=== PATIENT | female | born 1955 | race American Indian/Alaskan Native ===

== ENCOUNTER 2016-06-07 14:02 | Inpatient (IN) | payer MEDICARE ==
--- NOTE | 2016-06-07 16:30 | Emergency Department Report ---
ED General Adult HPI - General Chief complaint: Altered Mental Status Stated complaint: AMS Time Seen by Provider: 06/07/16 16:18 Source: patient, EMS, RN notes reviewed Mode of arrival: Stretcher Limitations: Altered Mental Status, Physical Limitation - History of Present Illness Initial comments: This is a 60-year-old female, whom I have evaluated in the past. Past medical history includes end-stage renal disease on dialysis, seizure disorder, polycystic kidney disease, anxiety, bipolar. Typically gets dialysis Tuesday, , Tuesday. She reports not having had dialysis since . She is brought to the hospital by EMS for generalized weakness. As per EMS documentation, patient answered the door half dressed, disoriented with labored breathing. Patient indicated that she had a syncopal episode. She cannot further elaborate on this. In the ER, patient complains of generalized weakness, and admits to syncope, but cannot further elaborate. Laboratory studies indicated hyperkalemia. Laboratory studies were not hemolyzed. Noncontrast CAT scan of the head was performed. Patient is alert to name, year, month, and has difficulty recalling specific events that led to her coming to the emergency room. She will be treated with a hyperkalemia cocktail, with the exception of Kayexalate as her mental status is somewhat tenuous. She is currently protecting her airway. She moves 4 extremities spontaneously and to command. Urinalysis, rectal temperature, straight catheterized urine sample are pending. Case is discussed with the Hospital physician, Dr. Vanessa, who accepted the patient to his service. Case was discussed with nephrology, Dr. Candelaria, who is going to arrange emergent dialysis. -: Gradual Severity scale (0 -10): 7 Consistency: constant Improves with: none Worsens with: none Associated Symptoms: confusion, syncope - Related Data Home Medications Medication Instructions Recorded Confirmed Last Taken FLUoxetine HCL [PROzac] 40 mg PO QDAY 03/19/16 03/31/16 Unknown Albuterol Sulfate [Ventolin HFA] 2 puff IH Q4H PRN 03/31/16 03/31/16 Unknown Esomeprazole Magnesium [NexIUM] 40 mg PO QDAY 03/31/16 03/31/16 Unknown Gabapentin [Neurontin] 100 mg PO BID 03/31/16 03/31/16 Unknown levETIRAcetam [Keppra TAB] 500 mg PO BID 03/31/16 03/31/16 Unknown Previous Rx's Medication Instructions Recorded Last Taken Type clonazePAM [Klonopin] 1 mg PO TID PRN #12 tablet 01/23/16 Unknown Rx oxyCODONE /ACETAMINOPHEN [Percocet 1 tab PO Q6HR PRN #24 tablet 03/24/16 Unknown Rx 5/325] Azithromycin [Zithromax Z-PARVIN] 0 mg PO DAILY #1 tab 04/05/16 Unknown Rx Allergies Allergy/AdvReac Type Severity Reaction Status Date / Time codeine Allergy Rash Verified 03/04/16 15:27 Sulfa (Sulfonamide Allergy Rash Verified 03/04/16 15:27 Antibiotics) ED Review of Systems ROS: Stated complaint: AMS Other details as noted in HPI Comment: Unobtainable due to pts medical conditions Constitutional: malaise, weakness Eyes: denies: vision change ENT: denies: epistaxis Respiratory: see HPI Cardiovascular: syncope Gastrointestinal: as per HPI Genitourinary: as per HPI Musculoskeletal: as per HPI Skin: as per HPI Neurological: weakness, confusion Psychiatric: denies: homicidal thoughts, suicidal thoughts ED Past Medical Hx - Past Medical History Hx Hypertension: Yes Hx Congestive Heart Failure: Yes Hx Diabetes: Yes Hx Deep Vein Thrombosis: Yes (Right calf) Hx GERD: Yes Hx Renal Disease: Yes (Renal Failure) Hx Arthritis: Yes Hx Seizures: Yes Hx Psychiatric Treatment: Yes (Anxiety, Bipolar) Hx Asthma: Yes Hx COPD: Yes Hx HIV: No Additional medical history: TIA - Surgical History Hx Cholecystectomy: Yes Additional Surgical History: Hysterectomy, Right shoulder x3, Bilateral ankle fx repair - Social History Smoking Status: Never Smoker Substance Use Type: None - Medications Home Medications: Home Medications Medication Instructions Recorded Confirmed Last Taken Type clonazePAM [Klonopin] 1 mg PO TID PRN #12 tablet 01/23/16 03/31/16 Unknown Rx FLUoxetine HCL [PROzac] 40 mg PO QDAY 03/19/16 03/31/16 Unknown History oxyCODONE /ACETAMINOPHEN [Percocet 1 tab PO Q6HR PRN #24 tablet 03/24/16 Unknown Rx 5/325] Albuterol Sulfate [Ventolin HFA] 2 puff IH Q4H PRN 03/31/16 03/31/16 Unknown History Esomeprazole Magnesium [NexIUM] 40 mg PO QDAY 03/31/16 03/31/16 Unknown History Gabapentin [Neurontin] 100 mg PO BID 03/31/16 03/31/16 Unknown History levETIRAcetam [Keppra TAB] 500 mg PO BID 03/31/16 03/31/16 Unknown History Azithromycin [Zithromax Z-PARVIN] 0 mg PO DAILY #1 tab 04/05/16 Unknown Rx ED Physical Exam - General Limitations: Altered Mental Status, Physical Limitation General appearance: in no apparent distress, lethargic - Head Head exam: Present: atraumatic, normocephalic - Eye Eye exam: Present: normal appearance, EOMI, other (left pupil surgically corrected, does not react to light. Right pupil does react to light.) - ENT ENT exam: Present: normal exam, normal orophraynx, mucous membranes moist, normal external ear exam - Neck Neck exam: Present: normal inspection, full ROM. Absent: tenderness, meningismus - Respiratory Respiratory exam: Absent: respiratory distress, wheezes, rales, rhonchi, stridor - Cardiovascular Cardiovascular Exam: Present: regular rate, normal rhythm, normal heart sounds. Absent: bradycardia, tachycardia, irregular rhythm, systolic murmur, diastolic murmur, rubs, gallop - GI/Abdominal GI/Abdominal exam: Present: soft, normal bowel sounds. Absent: distended, tenderness, guarding, rebound, rigid, pulsatile mass - Extremities Exam Extremities exam: Present: normal inspection, full ROM, pedal edema, other ( left upper extremity AV fistula with appropriate throat. Pelvis is stable. no long bony tenderness.). Absent: calf tenderness - Back Exam Back exam: Present: normal inspection, full ROM. Absent: tenderness, CVA tenderness (R), CVA tenderness (L), muscle spasm, paraspinal tenderness, vertebral tenderness - Neurological Exam Neurological exam: Present: alert, other (Extraocular movements intact. Tongue midline. No facial droop. Facial sensation intact to light touch in the V1, V2 , V3 distribution bilaterally. 5 and 5 strength in 4 extremities.. Sensation is intact to light touch in 4 extremities.). Absent: motor sensory deficit - Psychiatric Psychiatric exam: Present: normal affect, normal mood - Skin Skin exam: Present: warm, dry, intact, normal color. Absent: rash ED Course Vital Signs 06/07/16 06/07/16 06/07/16 14:39 14:45 14:47 Temperature 98.3 F Pulse Rate 85 85 Respiratory 18 15 Rate Blood Pressure 125/68 Blood Pressure 143/74 [Right] O2 Sat by Pulse 22 L 96 97 Oximetry 06/07/16 06/07/16 06/07/16 16:45 18:10 18:15 Temperature 98.0 F Pulse Rate 87 82 79 Respiratory 17 20 Rate Blood Pressure 150/82 182/80 Blood Pressure 148/73 [Right] O2 Sat by Pulse 96 Oximetry 06/07/16 06/07/16 06/07/16 18:30 18:45 19:00 Temperature Pulse Rate 92 H 92 H 92 H Respiratory Rate Blood Pressure 145/91 142/92 147/85 Blood Pressure [Right] O2 Sat by Pulse Oximetry 06/07/16 06/07/16 06/07/16 19:15 19:30 19:40 Temperature Pulse Rate 91 H 92 H 67 Respiratory Rate Blood Pressure 136/78 134/83 149/103 Blood Pressure [Right] O2 Sat by Pulse Oximetry 06/07/16 06/07/16 06/07/16 20:00 20:15 21:30 Temperature Pulse Rate 86 85 81 Respiratory Rate Blood Pressure 139/73 120/76 110/63 Blood Pressure [Right] O2 Sat by Pulse Oximetry - Reevaluation(s) Reevaluation #1: 06/07/16 17:31 Differential diagnosis: Hyperkalemia, pneumonia, urinary tract infection, toxic encephalopathy, metabolic encephalopathy Assessment and plan: 60-year-old female with generalized weakness, reported syncopal event, hyperkalemia. She will be given the hyperkalemia cocktail. She is going to be admitted for further management. X-ray unremarkable. Currently awaiting interpretation CAT scan of the head. Reevaluation #2: 06/07/16 17:36 Reevaluation #3: 06/07/16 17:38 Elevated aspirin level is appreciated. Case is discussed with the [place] [facility]. They typically do not recommend emergent dialysis for levels less than 90. They typically do not recommend bicarbonate/ alkalinization therapy for levels less than 30. In any event, the patient has really been treated with sodium bicarbonate, and is going to get urgent dialysis today for her hyperkalemia. The patient indicates that she does not take lithium. She was taking aspirin for pain. She is not homicidal. She is not suicidal. This was discussed with Alycia at the [place] [facility], in conjunction with the medical special loan officer, Dr. Nevarez 06/07/16 17:42 ED Medical Decision Making - Lab Data Result diagrams: 06/07/16 15:51 06/07/16 15:51 Vital Signs 06/07/16 14:39 Temperature 98.3 F Pulse Rate 85 Blood Pressure 125/68 O2 Sat by Pulse 22 L Oximetry - EKG Data 06/07/16 17:33 normal sinus, borderline rightward axis, low voltage, incomplete right bundle branch block, not consistent with STEMI, nonspecific changes when compared to prior EKG from March 2016. - Radiology Data Radiology results: image reviewed interpreted by me: X-ray chest with mild pulmonary vascular congestion, DJD, no acute disease. Critical Care Time: Yes Critical care time in (mins) excluding proc time.: 45 Critical care attestation.: If time is entered above; I have spent that time in minutes in the direct care of this critically ill patient, excluding procedure time. Critical Care Time: Critical care time includes multiple bedside reevaluation, interpretation of laboratory studies, radiology studies, and discussion with multiple consulting services, including [place] [facility], hospital medicine, nephrology. This excludes procedure time. ED Disposition Clinical Impression: Acute metabolic encephalopathy, Hyperkalemia, ESRD (end stage renal disease) Disposition: OP ADMITTED IP TO THIS HOSP Is pt being admited?: Yes Condition: Good
[2016-06-07 16:40] LABS: Albumin 3.7 g/dL (3.9-5); Albumin/Globulin Ratio 1.2 %; BUN/Creatinine Ratio 9.75; Bilirubin,Total 0.2 mg/dL (0.1-1.2); Calcium 8.1 mg/dL (8.4-10.2); Chloride 104.6 mmol/L (98-107); Magnesium 2.3 mg/dL (1.7-2.3); Total Protein 6.9 g/dL (6.3-8.2)
[2016-06-07 16:46] LABS: Basophils % (Auto) 1.5 % (0.0-1.8); Eosinophils % (Auto) 6.6 % (0.0-4.3); Hematocrit 29.4 % (30.3-42.9); Hemoglobin 9.1 gm/dl (10.1-14.3); Mean Corpuscular HGB Conc 31 % (30-34); Mean Corpuscular Hemoglobin 29 pg (28-32); Mean Corpuscular Volume 92 fl (79-97); Platelet Count 204 K/mm3 (140-440); Red Cell Distribution Width 19.2 % (13.2-15.2); White Blood Count 7.6 K/mm3 (4.5-11.0)
--- NOTE | 2016-06-07 17:09 | Admit Criteria Form ---
Admission Criteria Documentation: HYPONATREMIA; HYPERNATREMIA; HYPOKALEMIA; HYPERKALEMIA; HYPOCALCEMIA; HYPERCALCEMIA Clinical Indications for Inpatient Care (Place 'X' for any and all applicable criteria): Ongoing inpatient care may be indicated for ANY ONE of the following [G](1)(2)(3 )(5): [ ]I. Hyponatremia with ANY ONE of the following: [ ]a) Sodium less than 130 mEq/L (mmol/L) (new) (6)(22) [ ]b) Sodium less than 135 mEq/L (mmol/L) with ANY ONE of the following: [ ]i) Severe medical etiology requiring inpatient management (eg, heart failure, hypovolemia) [ ]ii) Altered mental status [ ]iii) Seizures [ ]II. Hypernatremia with ANY ONE of the following: [ ]a) Sodium greater than 155 mEq/L (mmol/L) [ ]b) Sodium greater than 150 mEq/L (mmol/L) with ANY ONE of the following: [ ] i) Altered mental status [ ]ii) Seizures [ ]iii) Severe medical etiology (eg, hypovolemia, diabetes insipidus) [ ]iv) Severe weakness [ ]v) Severe medical etiology (eg, hemolysis, infection, drug overdose) [ ]III. Hypokalemia with ANY ONE of the following: [ ]a) Potassium less than 2.5 mEq/L (mmol/L) despite outpatient and emergency treatment [ ]b) Potassium less than 3.0 mEq/L (mmol/L) with ANY ONE of the following: [ ]i) Weakness [ ]ii) Cardiac abnormality (eg, arrhythmia, conduction disturbance) [ ]iii) Cardiac ischemia [ ]iv) Ileus [ ]v) Ongoing medical cause requiring inpatient management. ( e.g., acute renal wasting, SIADH) [ ]vi) Other severe symptoms [ X] IV. Hyperkalemia with ANY ONE of the following: [X ]a) Potassium greater than 6.5 mEq/L (mmol/L) [ ]b) Potassium greater than 5 mEq/L (mmol/L) with ANY ONE of the following: [ ]i) Severe ECG findings [H] [ ]ii) Acute worsening of renal failure (creatinine greater than 2.5 mg/dL (221 micromoles/L) or significant elevation for age and size) [ ] V. Hypocalcemia with ANY ONE of the following: [ ]a) Calcium less than 7 mg/dL (1.75 mmol/L) despite outpatient and emergency treatment(19) [ ]b) Calcium less than 8 mg/dL (2 mmol/L) with significant symptoms or findings; examples include: [ ]i) Cardiac abnormality (eg, arrhythmia or conduction disturbance) [ ]ii) Altered mental status [ ]iii) Seizures [ ]iv) Breathing difficulty [ ]v) Muscle spasms [ ]. Hypercalcemia with ANY ONE of the following: [ ]a) Calcium greater than 14 mg/dL (3.5 mmol/L) [ ]b) Calcium greater than 12 mg/dL (3 mmol/L) with ANY ONE of the following: [ ]i) Significant dehydration or hypovolemia as indicated by ANY ONE of the following(2): [ ]1. Clinically significant dehydration as indicated by ANY ONE of the following: [ ]A. Acute loss of weight from baseline (5% of body weight in adults, 9% in pediatric patients) [ ]B. Hemodynamic instability [ ]C. Acute renal failure [ ]D. Serum sodium greater than 150 mEq/L (mmol/L) [ ]2) Dehydration that is persistent indicated by ALL of the following: [ ]A. Oral rehydration therapy not tolerated or insufficient to adequately correct dehydration [ ]B. Appropriate intravenous treatment (eg, fluids ) does not readily correct dehydration ie, after 12 to 24 hours of treatment) [ ]ii) Significant symptoms or findings; examples include: [ ]1) Altered mental status [ ]2) Cardiac abnormality (eg, arrhythmia, conduction disturbance) [ ]3) Cardiac abnormality (eg, arrhythmia, conduction disturbance) The original [employer] content created by [employer] has been revised. The portions of the content which have been revised are identified through the use of italic text or in bold, and [facility] has neither reviewed nor approved the modified material. All other unmodified content is copyright [facility] [employer] Please see references footnoted in the original [facility] [employer] edition 2016 Admission Criteria Met: Yes
[2016-06-07] MEDS ORDERED: PROVENTIL IH ONE (17:10)
[2016-06-07] MEDS ORDERED: D50W (25GM) IV ONE (17:10)
[2016-06-07] MEDS ORDERED: SODIUM BICARBONATE IV ONE (17:10)
[2016-06-07] MEDS ORDERED: PROAIR IH PRN (17:32)
[2016-06-07] MEDS ORDERED: PERCOCET 5/325 PO PRN (17:32)
[2016-06-07] MEDS ORDERED: PROVENTIL IH PRN ×2 (17:36→17:40)
[2016-06-07] MEDS ORDERED: ZOFRAN IV PRN (17:36)
[2016-06-07] MEDS ORDERED: MILK OF MAGNESIA PO PRN (17:36)
--- NOTE | 2016-06-07 17:40 | History and Physical Report ---
History of Present Illness Date of examination: 06/07/16 Date of admission: 06/27/16 Chief complaint: shortness of breath, AMS History of present illness: Patient is a 60-year-old woman history of end-stage renal disease on dialysis Tuesdays, , Saturdays, bipolar, hypertension, anxiety disorder, polycystic kidney disease, seizure disorder, was brought to the emergency room for altered mental status and shortness of breath via EMS. The patient will go still confused in the ER was unable to tell me that she had missed all 1 dialysis day and I wasn't Tuesday although she feels today Tuesday. No family members present at bedside. Per EMS documentation patient answered the door half dressed, disoriented with labored breathing. She reported that she may have passed out but did not give any further information. In the ER she was noted to have mild shortness of breath although able to vocalize all her sentences completely. No fever was noted. She has had multiple admissions in the past for missed dialysis. She has a known history of abdominal hematoma status post evacuation of hematoma. She appears visibly weak. Nevertheless she is awake alert oriented to person and place but not to time. ROS Constitutional: Reports fatigue, denies fever, or weight loss. Skin: No rash. Eyes: No recent vision problems or eye pain. ENT: No congestion, ear pain, or sore throat. Endocrine: No thyroid problems. Cardiovascular: No chest pain. Respiratory: Cough with shortness of breath but no, congestion, or wheezing. Gastrointestinal: No abdominal pain, nausea, vomiting, or diarrhea. Genitourinary: No dysuria. Musculoskeletal: No joint swelling. Neurologic: Reports syncopal episode. But no seizures. Hematologic: No unusual bruising or bleeding. Psychiatric: History of anxiety, bipolar All other systems reviewed and otherwise negative. Past History Past Medical History: ESRD, hypertension, seizures, other (anxiety, bipolar,, polycystic kidney disease) Past Surgical History: hysterectomy, Other (ankle surgery, abdominal hematoma evacuation, shoulder surgery, AV fistula) Social history: , lives with family, full code. denies: smoking, alcohol abuse, prescription drug abuse, IV drug use Family history: no significant family history Medications and Allergies Allergies Allergy/AdvReac Type Severity Reaction Status Date / Time codeine Allergy Rash Verified 03/04/16 15:27 Sulfa (Sulfonamide Allergy Rash Verified 03/04/16 15:27 Antibiotics) Home Medications Medication Instructions Recorded Confirmed Last Taken Type clonazePAM [Klonopin] 1 mg PO TID PRN #12 tablet 01/23/16 03/31/16 Unknown Rx FLUoxetine HCL [PROzac] 40 mg PO QDAY 03/19/16 03/31/16 Unknown History oxyCODONE /ACETAMINOPHEN [Percocet 1 tab PO Q6HR PRN #24 tablet 03/24/16 Unknown Rx 5/325] Albuterol Sulfate [Ventolin HFA] 2 puff IH Q4H PRN 03/31/16 03/31/16 Unknown History Esomeprazole Magnesium [NexIUM] 40 mg PO QDAY 03/31/16 03/31/16 Unknown History Gabapentin [Neurontin] 100 mg PO BID 03/31/16 03/31/16 Unknown History levETIRAcetam [Keppra TAB] 500 mg PO BID 03/31/16 03/31/16 Unknown History Azithromycin [Zithromax Z-PARVIN] 0 mg PO DAILY #1 tab 04/05/16 Unknown Rx Active Meds: Active Medications Acetaminophen (Tylenol) 650 mg PO Q4H PRN PRN Reason: Pain MILD(1-3)/Fever >100.5/ROCHE Albuterol (Proair) 2 puff IH Q4H PRN PRN Reason: Shortness Of Breath Albuterol (Proventil) 2.5 mg IH Q3HRT PRN PRN Reason: Shortness Of Breath Albuterol/Ipratropium (Duoneb 0.5 Mg-3 Mg/3 Ml Soln) 1 ampul IH Q6HRT DAVIN Bisacodyl (Dulcolax) 10 mg KS QDAY PRN PRN Reason: Constipation unrelieved by MOM Budesonide (Pulmicort) 0.5 mg IH Q12HRT DAVIN Clonazepam (Klonopin) 1 mg PO TID PRN PRN Reason: Anxiety Fluoxetine HCl (Prozac) 40 mg PO DAILY DAVIN Gabapentin (Neurontin) 100 mg PO BID DAVIN Heparin Sodium (Porcine) (Heparin) 5,000 unit SUB-Q Q8HR DAVIN Levetiracetam (Keppra) 500 mg PO BID DAVIN Magnesium Hydroxide (Milk Of Magnesia) 30 ml PO Q4H PRN PRN Reason: Constipation Ondansetron HCl (Zofran) 4 mg IV Q8H PRN PRN Reason: N/V unrelieved by Reglan Oxycodone/Acetaminophen (Percocet 5/325) 1 tab PO Q6HR PRN PRN Reason: Pain Exam - Physical Exam Narrative exam: VITAL SIGNS: Reviewed. GENERAL: The patient appeared well nourished and normally developed. Vital signs as documented. HEAD: No signs of head trauma. EYES: Pupils are equal. Extraocular motions intact. EARS: Hearing grossly intact. MOUTH: Oropharynx is normal. NECK: No adenopathy, no JVD. CHEST: Chest with diminished breath sounds bilaterally. No wheezes, rales, or rhonchi. CARDIAC: Regular rate and rhythm. S1 and S2, without murmurs, gallops, or rubs. VASCULAR: Nonpitting bilateral edema left greater than right. Peripheral pulses normal and equal in all extremities. ABDOMEN: Truncal obesity, Soft, without detectable tenderness. No sign of distention. No rebound or guarding, and no masses palpated. Bowel Sounds normal. MUSCULOSKELETAL: Left upper extremity fistula left ankle appears deformed. Extremities without clubbing, cyanosis NEUROLOGIC EXAM: Awake but lethargic oriented to person and place . No focal sensory or strength deficits. Speech normal. Follows commands. PSYCHIATRIC: Mood normal. SKIN: There is a fistula left upper extremity. - Constitutional Vitals: Temp Pulse Resp BP Pulse Ox 98.3 F 85 125/68 22 L 06/07/16 14:39 06/07/16 14:39 06/07/16 14:39 06/07/16 14:39 Results - Labs CBC & Chem 7: 06/07/16 15:51 06/07/16 15:51 Labs: Laboratory Last Values WBC 7.6 K/mm3 (4.5-11.0) 06/07/16 15:51 RBC 3.20 M/mm3 (3.65-5.03) L 06/07/16 15:51 Hgb 9.1 gm/dl (10.1-14.3) L 06/07/16 15:51 Hct 29.4 % (30.3-42.9) L 06/07/16 15:51 MCV 92 fl (79-97) 06/07/16 15:51 MCH 29 pg (28-32) 06/07/16 15:51 MCHC 31 % (30-34) 06/07/16 15:51 RDW 19.2 % (13.2-15.2) H 06/07/16 15:51 Plt Count 204 K/mm3 (140-440) 06/07/16 15:51 Lymph % (Auto) 18.4 % (13.4-35.0) 06/07/16 15:51 [place] % (Auto) 6.2 % (0.0-7.3) 06/07/16 15:51 Eos % (Auto) 6.6 % (0.0-4.3) H 06/07/16 15:51 Baso % (Auto) 1.5 % (0.0-1.8) 06/07/16 15:51 Lymph # 1.4 K/mm3 (1.2-5.4) 06/07/16 15:51 [place] # 0.5 K/mm3 (0.0-0.8) 06/07/16 15:51 Eos # 0.5 K/mm3 (0.0-0.4) H 06/07/16 15:51 Baso # 0.1 K/mm3 (0.0-0.1) 06/07/16 15:51 Seg Neutrophils % 67.3 % (40.0-70.0) 06/07/16 15:51 Seg Neutrophils # 5.1 K/mm3 (1.8-7.7) 06/07/16 15:51 Sodium 147 mmol/L (137-145) H 06/07/16 15:51 Potassium 7.0 mmol/L (3.6-5.0) H* 06/07/16 15:51 Chloride 104.6 mmol/L (98-107) 06/07/16 15:51 Carbon Dioxide 12 mmol/L (22-30) L 06/07/16 15:51 Anion Gap 37 mmol/L 06/07/16 15:51 BUN 80 mg/dL (7-17) H 06/07/16 15:51 Creatinine 8.2 mg/dL (0.7-1.2) H 06/07/16 15:51 Estimated GFR 6 ml/min 06/07/16 15:51 BUN/Creatinine Ratio 9.75 % 06/07/16 15:51 Glucose 73 mg/dL (65-100) 06/07/16 15:51 Lactic Acid 0.4 mmol/L (0.7-2.0) L 06/07/16 15:51 Calcium 8.1 mg/dL (8.4-10.2) L 06/07/16 15:51 Magnesium 2.3 mg/dL (1.7-2.3) 06/07/16 15:51 Total Bilirubin 0.2 mg/dL (0.1-1.2) 06/07/16 15:51 AST 28 units/L (5-40) 06/07/16 15:51 ALT 18 units/L (7-56) 06/07/16 15:51 Alkaline Phosphatase 76 units/L (35-129) 06/07/16 15:51 Total Protein 6.9 g/dL (6.3-8.2) 06/07/16 15:51 Albumin 3.7 g/dL (3.9-5) L 06/07/16 15:51 Albumin/Globulin Ratio 1.2 % 06/07/16 15:51 TSH 1.930 mlU/mL (0.270-4.200) 06/07/16 16:02 Salicylates 22.0 mg/dL (2.8-20.0) H 06/07/16 16:03 Acetaminophen < 15.0 ug/mL (10.0-30.0) 06/07/16 16:03 Plasma/Serum Alcohol < 0.01 gm% (0-0.07) 06/07/16 16:05 - Imaging and Cardiology EKG: image reviewed (peaked T waves) Chest x-ray: image reviewed CT Scan - head: image reviewed Assessment and Plan Assessment and plan: Patient is a 60-year-old woman history of end-stage renal disease on dialysis Tuesdays, , Saturdays, bipolar, hypertension, anxiety disorder, polycystic kidney disease, seizure disorder, was brought to the emergency room for altered mental status and shortness of breath via EMS. The patient will go still confused in the ER was unable to tell me that she had missed all 1 dialysis day and I wasn't Tuesday although she feels today Tuesday. No family members present at bedside. Per EMS documentation patient answered the door half dressed, disoriented with labored breathing. She reported that she may have passed out but did not give any further information. In the ER she was noted to have mild shortness of breath although able to vocalize all her sentences completely. No fever was noted. She has had multiple admissions in the past for missed dialysis. She has a known history of abdominal hematoma status post evacuation of hematoma. She appears visibly weak. Nevertheless she is awake alert oriented to person and place but not to time. * Metabolic encephalopathy secondary to missed dialysis * Severe Hyperkalemia * syncope * End-stage renal disease on dialysis * Seizure * Hypertension * Bipolar * Anemia of chronic disease * Anxiety disorder * Generalized weakness * Metabolic acidosis secondary to end-stage renal disease Plan * Patient has received in the ER hyperkalemia cocktail including Kayexalate, bicarbonate, insulin, D10, we'll repeat potassium * Nephrology has been consulted already. * We'll resume patient's entire anxiolytics * Urinalysis pending * Resume blood pressure medications. * No EVIDENCE of infection at this point. I believe her syncopal episode is likely secondary to missed dialysis. We'll monitor closely will hold off on any antibiotics at this point. * DVT and GI prophylaxis The high probability of a clinically significant, sudden or life threatening deterioration of the [renal] system(s) required my full and direct attention, intervention and personal management. The aggregate critical care time was [35] minutes. This time is in addition to time spent performing reported procedures but includes the following: [x] Data Review and interpretation [x] Patient assessment and monitoring of vital signs [x] Documentation [x] Medication orders and management Advance Directives: Yes Plan of care discussed with patient/family: Yes
--- NOTE | 2016-06-07 17:48 | Cat Scan Report ---
FINAL REPORT EXAM: CT HEAD/BRAIN WO CON HISTORY: ams ? pna TECHNIQUE: CT head without contrast PRIORS: None. FINDINGS: No acute intra-axial or extra-axial hemorrhage is identified. There is no evidence of midline shift or mass effect. The ventricles and sulci are within normal limits. Can-white matter differentiation is intact. No acute parenchymal abnormalities seen. Bony calvarium is grossly intact. Visualized portions of the mastoids and paranasal sinuses are unremarkable. Left orbital scleral band noted. IMPRESSION: Negative CT head
[2016-06-07] MEDS ORDERED: NACL 0.9% 1000 ML 100 ML IV PRN (18:15)
[2016-06-07] MEDS ORDERED: DULCOLAX PR PRN (18:21)
[2016-06-07] MEDS ORDERED: HEPARIN 10,000 UNITS/10 ML IV ONE (19:00)
--- NOTE | 2016-06-07 19:07 | Consultation ---
History of Present Illness - Reason for Consult Consult date: 06/07/16 - History of Present Illness pt with ESRD,HTN,Bipolar disorder presents with AMS, Hyperkalemia, Uremia, Metabolic acidosis. Missed 2 HD sessions. Pt was seen and examined on HD around 6.30 PM . Currently on HD - sleepy, but arousable, pt says that she is confused and didn't go for dialysis, I had fight with my . BP-182/80,P-79, afebrile on HD. Monitor K. Renal diet as ordered. Tolerating UF. Ext -1+ edema, more prominent in LLE Past History Past Medical History: ESRD, hypertension, seizures, other (anxiety, bipolar,, polycystic kidney disease) Past Surgical History: hysterectomy, Other (ankle surgery, abdominal hematoma evacuation, shoulder surgery, AV fistula) Social history: , lives with family, full code. denies: smoking, alcohol abuse, prescription drug abuse, IV drug use Family history: no significant family history Medications and Allergies Allergies Allergy/AdvReac Type Severity Reaction Status Date / Time codeine Allergy Rash Verified 03/04/16 15:27 Sulfa (Sulfonamide Allergy Rash Verified 03/04/16 15:27 Antibiotics) Home Medications Medication Instructions Recorded Confirmed Last Taken Type clonazePAM [Klonopin] 1 mg PO TID PRN #12 tablet 01/23/16 03/31/16 Unknown Rx FLUoxetine HCL [PROzac] 40 mg PO QDAY 03/19/16 03/31/16 Unknown History oxyCODONE /ACETAMINOPHEN [Percocet 1 tab PO Q6HR PRN #24 tablet 03/24/16 Unknown Rx 5/325] Albuterol Sulfate [Ventolin HFA] 2 puff IH Q4H PRN 03/31/16 03/31/16 Unknown History Esomeprazole Magnesium [NexIUM] 40 mg PO QDAY 03/31/16 03/31/16 Unknown History Gabapentin [Neurontin] 100 mg PO BID 03/31/16 03/31/16 Unknown History levETIRAcetam [Keppra TAB] 500 mg PO BID 03/31/16 03/31/16 Unknown History Azithromycin [Zithromax Z-PARVIN] 0 mg PO DAILY #1 tab 04/05/16 Unknown Rx Active Meds: Active Medications Acetaminophen (Tylenol) 650 mg PO Q4H PRN PRN Reason: Pain MILD(1-3)/Fever >100.5/ROCHE Albuterol (Proventil) 2.5 mg IH Q4HRT PRN PRN Reason: Shortness Of Breath Albuterol/Ipratropium (Duoneb 0.5 Mg-3 Mg/3 Ml Soln) 1 ampul IH Q6HRT DAVIN Bisacodyl (Dulcolax) 10 mg DE QDAY PRN PRN Reason: Constipation unrelieved by MOM Budesonide (Pulmicort) 0.5 mg IH Q12HRT DAVIN Clonazepam (Klonopin) 1 mg PO TID PRN PRN Reason: Anxiety Fluoxetine HCl (Prozac) 40 mg PO DAILY DAVIN Gabapentin (Neurontin) 100 mg PO BID DAVIN Heparin Sodium (Porcine) (Heparin) 5,000 unit SUB-Q Q8HR DAVIN Sodium Chloride (Nacl 0.9% 1000 Ml) 100 mls @ 999 mls/hr IV MYAH PRN PRN Reason: Hypotension Levetiracetam (Keppra) 500 mg PO BID DAVIN Magnesium Hydroxide (Milk Of Magnesia) 30 ml PO Q4H PRN PRN Reason: Constipation Ondansetron HCl (Zofran) 4 mg IV Q8H PRN PRN Reason: N/V unrelieved by Reglan Oxycodone/Acetaminophen (Percocet 5/325) 1 tab PO Q6HR PRN PRN Reason: Pain Exam - Constitutional Vitals: Temp Pulse Resp BP Pulse Ox 98.3 F 87 17 148/73 96 06/07/16 14:39 06/07/16 16:45 06/07/16 16:45 06/07/16 16:45 06/07/16 16:45 Results - Labs CBC & Chem 7: 06/07/16 15:51 06/07/16 15:51
[2016-06-07] MEDS ORDERED: DUONEB 0.5 MG-3 MG/3 ML SOLN IH SCH (20:00)
[2016-06-07] MEDS ORDERED: PULMICORT IH SCH (20:00)
[2016-06-07] MEDS ORDERED: D50W (25GM) IV STA (21:27)
[2016-06-08 00:44] LABS: INR 1.08 (0.87-1.13)
--- NOTE | 2016-06-08 01:48 | Consultation ---
REASON FOR CONSULTATION: Renal failure, hyperkalemia, metabolic acidosis. HISTORY OF PRESENT ILLNESS: This 60-year-old -Domin[place] female with history of end-stage renal disease, polycystic kidney disease, bipolar disorder, hypertension, was brought to the Emergency Room with altered mental status and shortness of breath. The patient was reported to have missed dialysis treatment on and Tuesday. The patient is very sleepy and poor historian. On questioning, the patient states that she was confused and did not go to the dialysis and had fight with her . The patient goes to [facility] on Tuesday, , Tuesday. In the Emergency Room, the patient was reported to have potassium level of 7.0, CO2 of 12, BUN 80, creatinine 8.2. Toxicology screening was positive for salicylates level 22.0. PAST MEDICAL HISTORY: The patient had previous admissions with hyperkalemia and hypoglycemia with altered mental status. Recently, she had a fall and had abdominal hematoma, underwent evacuation of the hematoma, history of bipolar disorder, anxiety/depression, ESRD, history of seizure disorder. PERSONAL HISTORY: No history of smoking, alcohol, or drug abuse. FAMILY HISTORY: No family history of kidney failure. ALLERGIES: Codeine and sulfa. HOME MEDICATIONS: Klonopin 1 mg 3 times a day as needed, Prozac 40 mg a day, Percocet 5/325 p.r.n., gabapentin 100 mg b.i.d., Keppra 500 mg twice a day. REVIEW OF SYSTEMS: Poor historian. The patient is sleepy and confused, but arousable and able to talk slowly. No reports of fever or chills. Denies nausea, vomiting, or abdomen pain. Other review of systems reviewed and negative. PHYSICAL EXAMINATION: GENERAL: The patient is lethargic, but arousable, oriented to person and place. VITAL SIGNS: Blood pressure 182/80, pulse 79, afebrile. EYES: Pupils reactive. Conjunctivae pale. Oral mucosa and tongue are dry. Lips noncyanotic. NECK: Supple, no JVD, no thyroid enlargement. LUNGS: Diminished breath sounds in bases. HEART: S1, S2 regular. A 2/6 systolic murmur along the left sternal border. No pericardial rub. ABDOMEN: Soft, bowel sounds present, nontender. No masses palpable. EXTREMITIES: 1+ edema, more prominent in the left lower extremity. Upper arm AV access is functioning. LABORATORY DATA: Sodium 147, potassium 7.0, chloride 104, CO2 12, BUN 80, creatinine 8.2, glucose 73, calcium 8.1. Lactic acid 0.4. Albumin 3.7. WBC 7.6, hemoglobin 9.1, hematocrit 29.4, platelets 204,000. ASSESSMENT AND PLAN: 1. Altered mental status/metabolic encephalopathy. 2. Hyperkalemia. 3. Uremia. 4. Metabolic acidosis. 5. End-stage renal disease. 6. History of seizure disorder. 7. Hypertension. 8. History of bipolar disorder. 9. Anemia and chronic kidney disease. 10. Chronic deconditioning with weakness in the lower extremities with unsteady gait. Stat hemodialysis as ordered. Monitor potassium levels closely. Renal diet with potassium restriction is ordered. Adjust medications per renal function. Thank you for the consultation. JOB# [id number] Britney/DENNISE
[2016-06-08] MEDS: KEPPRA PO SCH ×2 (03:07→09:28)
[2016-06-08] MEDS: NEURONTIN PO SCH ×2 (03:07→09:28)
[2016-06-08] MEDS: HEPARIN SUB-Q SCH ×3 (03:08→14:50)
[2016-06-08 08:32] LABS: Basophils % (Auto) 0.7 % (0.0-1.8); Eosinophils % (Auto) 6.9 % (0.0-4.3); Hematocrit 27.3 % (30.3-42.9); Hemoglobin 8.7 gm/dl (10.1-14.3); Mean Corpuscular HGB Conc 32 % (30-34); Mean Corpuscular Hemoglobin 28 pg (28-32); Mean Corpuscular Volume 87 fl (79-97); Platelet Count 186 K/mm3 (140-440); Red Blood Count 3.13 M/mm3 (3.65-5.03); Red Cell Distribution Width 18.6 % (13.2-15.2)
[2016-06-08] MEDS: TYLENOL PO PRN ×2 (08:42→18:15)
--- NOTE | 2016-06-08 09:04 | XRay Report ---
AP CHEST: HISTORY: Altered mental status, pneumonia. FINDINGS: Compared to 04/06/16. Mild cardiomegaly and central pulmonary venous congestion appear stable. The lungs are clear. Atelectatic changes at the lung bases have resolved since the previous exam. No evidence for pneumonia, CHF or pneumothorax. IMPRESSION: Mild cardiomegaly and central pulmonary venous congestion.
[2016-06-08 09:09] LABS: BUN/Creatinine Ratio 6.92; Calcium 8.4 mg/dL (8.4-10.2); Chloride 95.6 mmol/L (98-107); Potassium 4.7 mmol/L (3.6-5.0)
--- NOTE | 2016-06-08 09:21 | Progress Note ---
Assessment and Plan - Patient Problems (1) ESRD (end stage renal disease) Current Visit: Yes Status: Chronic Plan to address problem: S/P HD yesterday for hyperkalemia, Metabolic acidosis,uremia. Regular dialysis schedule-T/T/S-HD today. Clinically improving (2) Hypoglycemia Current Visit: Yes Status: Acute Plan to address problem: not on oral hypoglycemic agents or Insulin. Had work up for adrenal insufficiency in the past, advised pt to eat small frequent meals. May consider small dose of steroids or Florinef (3) Metabolic acidosis Current Visit: Yes Status: Resolved (4) Acute metabolic encephalopathy Current Visit: Yes Status: Resolved (5) Hyperkalemia Current Visit: Yes Status: Resolved (6) Bipolar disorder Current Visit: No Status: Acute Qualifiers: Active/Remission status: A Current bipolar episode type: C Current episode severity: C Psychotic features: P Most recent bipolar episode type: M (7) HTN (hypertension) Current Visit: No Status: Chronic Qualifiers: Hypertension type: H (8) Weakness generalized Current Visit: No Status: Chronic (9) Anemia in ESRD (end-stage renal disease) Current Visit: Yes Status: Chronic Subjective Date of service: 06/08/16 Interval history: pt is more alert, oriented, back to baseline mental status. Denies CP or SOB Objective - Vital Signs Vital signs: Vital Signs - 12hr 06/07/16 06/07/16 06/07/16 21:30 21:40 22:00 Temperature 98.4 F Pulse Rate 81 80 75 Pulse Rate [ Radial] Pulse Rate [ Right] Respiratory 20 Rate Blood Pressure 110/63 120/64 123/63 Blood Pressure [Right Arm] O2 Sat by Pulse Oximetry 06/08/16 06/08/16 01:43 02:04 Temperature 98.1 F Pulse Rate Pulse Rate [ 78 Radial] Pulse Rate [ 75 Right] Respiratory 22 18 Rate Blood Pressure Blood Pressure 130/63 [Right Arm] O2 Sat by Pulse 99 96 Oximetry - General Appearance General appearance: well-developed EENT: mucous membranes moist Neck: no JVD Respiratory: Present: Clear to Ascultation Cardiology: regular Gastrointestinal: normoactive bowel sounds Psychiatric: cooperative - Lab 06/08/16 08:06 06/08/16 08:06 Most recent lab results Calcium 8.4 mg/dL (8.4-10.2) 06/08/16 08:06 Magnesium 2.3 mg/dL (1.7-2.3) 06/07/16 15:51
[2016-06-08] MEDS ORDERED: PROzac PO SCH (10:00)
--- NOTE | 2016-06-08 11:26 | Discharge Summary ---
Providers - Providers Date of Admission: 06/07/16 17:36 Date of discharge: 06/08/16 Attending physician: HALEY ANDERSON MD Primary care physician: CERTIFIED NURSING ATTENDANT Hospitalization Reason for admission: AMS Condition: Stable Hospital course: Patient is a 60-year-old woman history of end-stage renal disease on dialysis Tuesdays, , Saturdays, bipolar, hypertension, anxiety disorder, polycystic kidney disease, seizure disorder, was brought to the emergency room for altered mental status and shortness of breath via EMS. The patient will go still confused in the ER was unable to tell me that she had missed all 1 dialysis day and I wasn't Tuesday although she feels today Tuesday. No family members present at bedside. Per EMS documentation patient answered the door half dressed, disoriented with labored breathing. She reported that she may have passed out but did not give any further information. In the ER she was noted to have mild shortness of breath although able to vocalize all her sentences completely. No fever was noted. She has had multiple admissions in the past for missed dialysis. She has a known history of abdominal hematoma status post evacuation of hematoma. She appears visibly weak. Nevertheless she is awake alert oriented to person and place but not to time. On admission the patient had emergent dialysis with complete resolution of metabolic encephalopathy and also resolution of hyperkalemia. This was rather quicker resolution than anticipated. I did discuss extensively with her she actually states that she did not pass out but felt like she was about to pass out when she came to open the door for the EMS. She understands the importance of Discharge diagnoses * Metabolic encephalopathy secondary to missed dialysis-resolved * Severe Hyperkalemia-resolved * syncope * End-stage renal disease on dialysis * Seizure * Hypertension * Bipolar * Anemia of chronic disease * Anxiety disorder * Generalized weakness * Metabolic acidosis secondary to end-stage renal disease-resolved Disposition: DISCHARGED TO HOME OR SELFCARE Time spent for discharge: 35 mins - Discharge Diagnoses (1) Acute metabolic encephalopathy Status: Resolved (2) Hyperkalemia Status: Resolved (3) ESRD (end stage renal disease) Status: Chronic (4) Acute bilateral low back pain without sciatica Status: Chronic (5) Weakness generalized Status: Chronic (6) Bipolar disorder Status: Acute Qualifiers: Active/Remission status: A Current bipolar episode type: C Current episode severity: C Psychotic features: P Most recent bipolar episode type: M (7) Depression Status: Chronic Qualifiers: Depression Type: D Major depression recurrence: M Active/Remission status : A Major depression episode severity: M Psychotic features: P Trimester: T (8) Seizure disorder Status: Chronic (9) Metabolic acidosis Status: Resolved Core Measure Documentation - Palliative Care Palliative Care/ Comfort Measures: Not Applicable - Core Measures Any of the following diagnoses?: none - VTE Discharge Requirements Deep Vein Thrombosis/Pulmonary Embolism Present on Admission: No Exam - Physical Exam Narrative exam: VITAL SIGNS: Reviewed. GENERAL: The patient appeared well nourished and normally developed. Vital signs as documented. HEAD: No signs of head trauma. EYES: Pupils are equal. Extraocular motions intact. EARS: Hearing grossly intact. MOUTH: Oropharynx is normal. NECK: No adenopathy, no JVD. CHEST: Chest with clear breath sounds bilaterally. No wheezes, rales, or rhonchi. CARDIAC: Regular rate and rhythm. S1 and S2, without murmurs, gallops, or rubs. VASCULAR: Nonpitting bilateral edema left greater than right. Peripheral pulses normal and equal in all extremities. ABDOMEN: Truncal obesity, Soft, without detectable tenderness. No sign of distention. No rebound or guarding, and no masses palpated. Bowel Sounds normal. MUSCULOSKELETAL: Left upper extremity fistula left ankle appears deformed. Extremities without clubbing, cyanosis NEUROLOGIC EXAM: Awake and oriented to person and place and time. No focal sensory or strength deficits. Speech normal. Follows commands. PSYCHIATRIC: Mood normal. SKIN: There is a fistula left upper extremity. - Constitutional Vitals: Temp Pulse Resp BP Pulse Ox 98.3 F 78 16 140/80 100 06/08/16 07:45 06/08/16 07:45 06/08/16 07:45 06/08/16 07:45 06/08/16 07:45 Plan Activity: advance as tolerated, fall precautions Diet: renal Special Instructions: record daily BP diary Follow up with: INGRID ALVARADO MD [Primary Care Provider] - 3-5 Days MARY LUIS MD [Staff Physician] - 7 Days
[2016-06-08] MEDS ORDERED: NACL 0.9% 1000 ML 100 ML IV PRN (11:45)
[2016-06-08 18:20] VITALS: BP 110/70
== END 2016-06-08 19:50 | disposition home or self-care (01) | DRG 70 ==
LOC: ED 14:02 → 3A 17:36
PROVIDERS: ADMIT Internal Medicine; ATTEND Internal Medicine
PROC: 5A1D60Z (ICD-10-PCS; principal; 2016-06-07)
DX: G93.41 Metabolic encephalopathy (principal); N18.6 End stage renal disease; I13.2 Hypertensive heart and chronic kidney disease with heart failure and with stage 5 chronic kidney disease, or end stage renal disease; E87.2 Acidosis; E87.5 Hyperkalemia; F31.9 Bipolar disorder, unspecified; G40.909 Epilepsy, unspecified, not intractable, without status epilepticus; F41.9 Anxiety disorder, unspecified; I50.9 Heart failure, unspecified; M19.90 Unspecified osteoarthritis, unspecified site; E11.22 Type 2 diabetes mellitus with diabetic chronic kidney disease; J45.909 Unspecified asthma, uncomplicated; J44.9 Chronic obstructive pulmonary disease, unspecified; D63.1 Anemia in chronic kidney disease; N28.1 Cyst of kidney, acquired; R26.81 Unsteadiness on feet; E11.649 Type 2 diabetes mellitus with hypoglycemia without coma; Z99.2 Dependence on renal dialysis; Z91.15 Patient's noncompliance with renal dialysis; Z88.6 Allergy status to analgesic agent; Z88.2 Allergy status to sulfonamides; Z90.710 Acquired absence of both cervix and uterus; Z90.49 Acquired absence of other specified parts of digestive tract
CPT/HCPCS: 36415; 70450; 71010; 80048; 80053; 80320; 82140; 82962; 83735; 84132; 84443; 85025; 85610; 93005; 93010; 96374; 96375; 99291; G0480; J1644; J7030

== ENCOUNTER 2016-07-27 10:08 | Inpatient (IN) | payer SELFPAY ==
--- NOTE | 2016-07-27 11:39 | XRay Report ---
AP CHEST: HISTORY: Shortness of breath AP view of the chest demonstrates a normal mediastinal and cardiac contour with clear lungs and normal bony and soft tissue structures. IMPRESSION: No acute process. No significant change since 06/19/16.
[2016-07-27 11:51] LABS: Urine Drugs of Abuse Note Disclamer
[2016-07-27 12:11] LABS: Bilirubin,Urine NEG (Negative); Blood,Urine LG (Negative); Ketones,Urine NEG (Negative); Leukocyte Esterase,Urine LG (Negative); Mucus,Urine FEW /HPF; Nitrite,Urine NEG (Negative); Urobilinogen,Urine < 2.0 mg/dL (<2.0)
[2016-07-27 12:15] LABS: WBC,Urine > 182.0 /HPF (0.0-6.0)
[2016-07-27 12:20] LABS: Basophils % (Auto) 1.2 % (0.0-1.8); Hematocrit 27.2 % (30.3-42.9); Hemoglobin 8.4 gm/dl (10.1-14.3); Mean Corpuscular HGB Conc 31 % (30-34); Mean Corpuscular Hemoglobin 29 pg (28-32); Mean Corpuscular Volume 94 fl (79-97); Platelet Count 288 K/mm3 (140-440); Red Blood Count 2.91 M/mm3 (3.65-5.03); White Blood Count 7.8 K/mm3 (4.5-11.0)
[2016-07-27 12:22] LABS: Red Cell Distribution Width 20.4 % (13.2-15.2)
--- NOTE | 2016-07-27 12:26 | Emergency Department Report ---
HPI - General Chief Complaint: Altered Mental Status Time Seen by Provider: 07/27/16 10:54 - HPI HPI: Chief complaint: Altered mental status HPI: Patient is a 61-year-old -[place]egalese female with a history of arthritis, asthma, congestive heart failure, COPD, DVT, diabetes, GERD, hypertension, bipolar disorder with anxiety, end-stage renal disease on hemodialysis Tuesday and Tuesday, history of seizures and a history of TIAs. Patient states she slept through her dialysis this morning after taking 3 Klonopin's this morning. Patient's called the ambulance and had her brought to the emergency department. Patient's last dialysis was on Tuesday. Patient has no complaints. Mode of arrival: EMS Source: Patient old chart and nursing notes Began: Prior to admission Duration: Unclear Context: Patient with similar episodes in the past. Quality: Severity: out of 10 Improved with: Worsened with: Associated signs and symptoms: ED Past Medical Hx - Past Medical History Hx Hypertension: Yes Hx Congestive Heart Failure: Yes Hx Diabetes: Yes Hx Deep Vein Thrombosis: Yes (Right calf) Hx GERD: Yes Hx Renal Disease: Yes (Renal Failure) Hx Arthritis: Yes Hx Seizures: Yes Hx Psychiatric Treatment: Yes (Anxiety, Bipolar) Hx Asthma: Yes Hx COPD: Yes Hx HIV: No Additional medical history: TIA - Surgical History Hx Cholecystectomy: Yes Additional Surgical History: Hysterectomy, Right shoulder x3, Bilateral ankle fx repair - Social History Smoking Status: Never Smoker Substance Use Type: None - Medications Home Medications: Home Medications Medication Instructions Recorded Confirmed Last Taken Type FLUoxetine HCL [PROzac] 40 mg PO QDAY 03/19/16 07/27/16 1 Day Ago History oxyCODONE /ACETAMINOPHEN [Percocet 1 tab PO Q6HR PRN #24 tablet 03/24/16 1 Day Ago Rx 5/325 mg] Albuterol Sulfate [Ventolin HFA] 2 puff IH Q4H PRN 03/31/16 07/27/16 1 Day Ago History Esomeprazole Magnesium [NexIUM] 40 mg PO QDAY 03/31/16 07/27/16 1 Day Ago History Gabapentin [Neurontin] 100 mg PO BID 03/31/16 07/27/16 1 Day Ago History levETIRAcetam [Keppra TAB] 500 mg PO BID 03/31/16 07/27/16 1 Day Ago History Hydroxyzine HCl [hydrOXYzine] 50 mg PO BID #60 tablet 06/18/16 07/27/16 1 Day Ago Rx clonazePAM [Klonopin] 1 mg PO BID PRN #60 tablet 06/18/16 07/27/16 1 Day Ago Rx ED Review of Systems ROS: Stated complaint: POSSIBLE OVERDOSE Other details as noted in HPI Comment: Unobtainable due to pts medical conditions (patient sedated and slightly altered) Physical Exam - Physical Exam Vital Signs: Vital Signs 07/27/16 07/27/16 10:15 10:29 Temperature 98.7 F Pulse Rate 87 Respiratory 22 26 H Rate Blood Pressure 110/61 O2 Sat by Pulse 95 Oximetry Physical Exam: GENERAL: The patient is well-developed well-nourished . HEENT: Normocephalic. Atraumatic. Extraocular motions are intact. Patient has dry mucous membranes. NECK: Supple. No meningitic signs are noted. There is no adenopathy noted. CHEST/LUNGS: Clear to auscultation. There is no respiratory distress noted. HEART/CARDIOVASCULAR: Regular. There is no tachycardia. There is no gallop rub or murmur. ABDOMEN: Abdomen is soft, nontender. Patient has normal bowel sounds. There is no abdominal distention. SKIN: There is no rash. There is plus bilateral pedal edema. There is no diaphoresis. NEURO: The patient is awake, alert, and oriented to self and situation but not time. The patient is cooperative. The patient has no focal neurologic deficits. The patient has slurred speech. MUSCULOSKELETAL: There is no tenderness or deformity. There is no evidence of acute injury. ED Course Vital Signs 07/27/16 07/27/16 10:15 10:29 Temperature 98.7 F Pulse Rate 87 Respiratory 22 26 H Rate Blood Pressure 110/61 O2 Sat by Pulse 95 Oximetry - Reevaluation(s) Reevaluation #1: 07/27/16 12:45 Patient with a potassium of 8.4 oral be given 1 amp of sodium bicarbonate, 1 amp of calcium gluconate, 1 amp of D50 and 5 units of regular insulin. 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 ED Medical Decision Making - Lab Data Result diagrams: 07/27/16 11:59 07/27/16 11:59 Laboratory Tests 07/27/16 07/27/16 11:37 11:37 Ur Leukocyte Esterase Lg Urine WBC (Auto) > 182.0 H Urine RBC (Auto) 27.0 U Epithel Cells (Auto) 1.0 Urine WBC Clumps 2+ Urine Opiates Screen Presumptive negative Urine Methadone Screen Presumptive negative Ur Barbiturates Screen Presumptive negative Ur Phencyclidine Scrn Presumptive negative Ur Amphetamines Screen Presumptive negative U Benzodiazepines Scrn Presumptive negative Urine Cocaine Screen Presumptive negative U Marijuana (THC) Screen Presumptive negative - EKG Data -: EKG Interpreted by Ak EKG shows normal: sinus rhythm Rate: tachycardia (114) - EKG Data When compared to previous EKG there are: no significant change (several old EKGs were reviewed and patient alternates between a wide complex intraventricular block and a normal sinus narrow rhythm. Today patient is in a wide complex rhythm.) - Radiology Data Radiology results: report reviewed (chest x-ray shows no acute process.) Critical care time in (mins) excluding proc time.: 35 Critical care attestation.: If time is entered above; I have spent that time in minutes in the direct care of this critically ill patient, excluding procedure time. ED Disposition Clinical Impression: ESRD on hemodialysis, Hyperkalemia, Acute on chronic renal failure UTI (urinary tract infection) Qualifiers: Urinary tract infection type: site unspecified Hematuria presence: without hematuria Qualified Code(s): N39.0 - Urinary tract infection, site not specified Disposition: OP ADMITTED IP TO THIS HOSP Is pt being admited?: Yes Does the pt Need Aspirin: Yes Condition: Critical Time of Disposition: 12:47 (admit to the hospitalist)
[2016-07-27 12:27] LABS: BUN/Creatinine Ratio 8.06; Calcium 8.9 mg/dL (8.4-10.2); Chloride 100.9 mmol/L (98-107)
[2016-07-27] MEDS ORDERED: LEVAQUIN 500MG/100ML 500 MG/100 ML BAG IV ONE (12:28)
[2016-07-27 12:40] LABS: Potassium 8.3 mmol/L (3.6-5.0)
[2016-07-27] MEDS ORDERED: SODIUM BICARBONATE IV ONE ×2 (12:40→13:00)
[2016-07-27] MEDS ORDERED: CALCIUM GLUCONATE IV ONE (12:40)
[2016-07-27] MEDS ORDERED: D50W (25GM) IV ONE (12:42)
[2016-07-27] MEDS ORDERED: NACL 0.9% 50 ML ONE ×2 (12:45→12:54)
[2016-07-27] MEDS ORDERED: CALCIUM CHLORIDE IV ONE ×2 (12:45→13:00)
[2016-07-27] MEDS ORDERED: CALCIUM CHLORIDE IVP ONE (12:48)
[2016-07-27] MEDS ORDERED: CALCIUM CHLORIDE 1,000 MG in NACL 0.9% 100 ML IV ONE (13:00)
[2016-07-27] MEDS ORDERED: ASPIRIN PO ONE (13:15)
--- NOTE | 2016-07-27 13:22 | Admit Criteria Form ---
Admission Criteria Documentation: HYPONATREMIA; HYPERNATREMIA; HYPOKALEMIA; HYPERKALEMIA; HYPOCALCEMIA; HYPERCALCEMIA Clinical Indications for Inpatient Care (Place 'X' for any and all applicable criteria): Ongoing inpatient care may be indicated for ANY ONE of the following [G](1)(2)(3 )(5): [ ]I. Hyponatremia with ANY ONE of the following: [ ]a) Sodium less than 130 mEq/L (mmol/L) (new) (6)(22) [ ]b) Sodium less than 135 mEq/L (mmol/L) with ANY ONE of the following: [ ]i) Severe medical etiology requiring inpatient management (eg, heart failure, hypovolemia) [ ]ii) Altered mental status [ ]iii) Seizures [ ]II. Hypernatremia with ANY ONE of the following: [ ]a) Sodium greater than 155 mEq/L (mmol/L) [ ]b) Sodium greater than 150 mEq/L (mmol/L) with ANY ONE of the following: [ ] i) Altered mental status [ ]ii) Seizures [ ]iii) Severe medical etiology (eg, hypovolemia, diabetes insipidus) [ ]iv) Severe weakness [ ]v) Severe medical etiology (eg, hemolysis, infection, drug overdose) [ ]III. Hypokalemia with ANY ONE of the following: [ ]a) Potassium less than 2.5 mEq/L (mmol/L) despite outpatient and emergency treatment [ ]b) Potassium less than 3.0 mEq/L (mmol/L) with ANY ONE of the following: [ ]i) Weakness [ ]ii) Cardiac abnormality (eg, arrhythmia, conduction disturbance) [ ]iii) Cardiac ischemia [ ]iv) Ileus [ ]v) Ongoing medical cause requiring inpatient management. ( e.g., acute renal wasting, SIADH) [ ]vi) Other severe symptoms [X] IV. Hyperkalemia with ANY ONE of the following: [X]a) Potassium greater than 6.5 mEq/L (mmol/L) []b) Potassium greater than 5 mEq/L (mmol/L) with ANY ONE of the following: [ ]i) Severe ECG findings [H] [ ]ii) Acute worsening of renal failure (creatinine greater than 2.5 mg/dL (221 micromoles/L) or significant elevation for age and size) [ ] V. Hypocalcemia with ANY ONE of the following: [ ]a) Calcium less than 7 mg/dL (1.75 mmol/L) despite outpatient and emergency treatment(19) [ ]b) Calcium less than 8 mg/dL (2 mmol/L) with significant symptoms or findings; examples include: [ ]i) Cardiac abnormality (eg, arrhythmia or conduction disturbance) [ ]ii) Altered mental status [ ]iii) Seizures [ ]iv) Breathing difficulty [ ]v) Muscle spasms [ ]. Hypercalcemia with ANY ONE of the following: [ ]a) Calcium greater than 14 mg/dL (3.5 mmol/L) [ ]b) Calcium greater than 12 mg/dL (3 mmol/L) with ANY ONE of the following: [ ]i) Significant dehydration or hypovolemia as indicated by ANY ONE of the following(2): [ ]1. Clinically significant dehydration as indicated by ANY ONE of the following: [ ]A. Acute loss of weight from baseline (5% of body weight in adults, 9% in pediatric patients) [ ]B. Hemodynamic instability [ ]C. Acute renal failure [ ]D. Serum sodium greater than 150 mEq/L (mmol/L) [ ]2) Dehydration that is persistent indicated by ALL of the following: [ ]A. Oral rehydration therapy not tolerated or insufficient to adequately correct dehydration [ ]B. Appropriate intravenous treatment (eg, fluids ) does not readily correct dehydration ie, after 12 to 24 hours of treatment) [ ]ii) Significant symptoms or findings; examples include: [ ]1) Altered mental status [ ]2) Cardiac abnormality (eg, arrhythmia, conduction disturbance) [ ]3) Cardiac abnormality (eg, arrhythmia, conduction disturbance) The original [email or web address] content created by [employer] has been revised. The portions of the content which have been revised are identified through the use of italic text or in bold, and [email or web address] has neither reviewed nor approved the modified material. All other unmodified content is copyright [facility] [email or web address] Please see references footnoted in the original [facility] [employer] edition 2016 Admission Criteria Met: Yes
--- NOTE | 2016-07-27 13:51 | History and Physical Report ---
History of Present Illness Date of examination: 07/27/16 Date of admission: 07/27/16 Chief complaint: generalized weakness, drowsy History of present illness: Patient is a 61-year-old with history of end-stage renal disease hypertension and seizure disorder. She is on hemodialysis Tuesdays, and Saturdays. History obtained from patient and ED physician. According to patient has been very sleepy and was sleeping the whole morning the time she was supposed to go for dialysis therefore missed dialysis today. The patient admits to taking 3 pills of Klonopin. She denies chest pain or shortness of breath. Emergency emergency department potassium was 8.43. She states her last hemodialysis was 3 days ago. She is being admitted for management of severe hyperkalemia and will undergo urgent hemodialysis today. Past History Past Medical History: ESRD (on hemodialysis), hypertension, seizures, other ( anxiety, bipolar disorder, polycystic kidney disease.) Past Surgical History: hysterectomy, Other (ankle surgery, shoulder surgery, AV fistula repair, abdominal hematoma evacuation.) Social history: , lives with family, smoking (no smoking), alcohol abuse (no alcohol), full code Family history: no significant family history Medications and Allergies Allergies Allergy/AdvReac Type Severity Reaction Status Date / Time codeine Allergy Rash Verified 03/04/16 15:27 Sulfa (Sulfonamide Allergy Rash Verified 03/04/16 15:27 Antibiotics) Home Medications Medication Instructions Recorded Confirmed Last Taken Type FLUoxetine HCL [PROzac] 40 mg PO QDAY 03/19/16 07/27/16 1 Day Ago History oxyCODONE /ACETAMINOPHEN [Percocet 1 tab PO Q6HR PRN #24 tablet 03/24/16 1 Day Ago Rx 5/325 mg] Albuterol Sulfate [Ventolin HFA] 2 puff IH Q4H PRN 03/31/16 07/27/16 1 Day Ago History Esomeprazole Magnesium [NexIUM] 40 mg PO QDAY 03/31/16 07/27/16 1 Day Ago History Gabapentin [Neurontin] 100 mg PO BID 03/31/16 07/27/16 1 Day Ago History levETIRAcetam [Keppra TAB] 500 mg PO BID 03/31/16 07/27/16 1 Day Ago History Hydroxyzine HCl [hydrOXYzine] 50 mg PO BID #60 tablet 06/18/16 07/27/16 1 Day Ago Rx clonazePAM [Klonopin] 1 mg PO BID PRN #60 tablet 06/18/16 07/27/16 1 Day Ago Rx Review of Systems All systems: negative (no chest pain, no shortness of breath, no abdominal pain , no fever. All other systems reviewed and are negative) Exam - Constitutional Vitals: Temp Pulse Resp BP Pulse Ox 98.7 F 86 13 110/61 97 07/27/16 10:29 07/27/16 13:11 07/27/16 13:11 07/27/16 10:29 07/27/16 13:11 General appearance: Present: no acute distress - EENT Eyes: Present: PERRL ENT: hearing intact, clear oral mucosa - Neck Neck: Present: supple, normal ROM - Respiratory Respiratory effort: normal Respiratory: bilateral: CTA, negative: diminished, rales, rhonchi, wheezing - Cardiovascular Rhythm: regular Heart Sounds: Present: S1 & S2 (S1-S2 regular, no murmurs rubs or gallops) - Extremities Extremities: no ischemia, No edema, normal temperature, normal color - Abdominal General gastrointestinal: Present: soft, non-tender, non-distended, normal bowel sounds - Integumentary Integumentary: Present: clear, warm, dry - Musculoskeletal Musculoskeletal: strength equal bilaterally - Psychiatric Psychiatric: appropriate mood/affect, intact judgment & insight - Neurologic Neurologic: moves all extremities, other (mild lethargy) Results - Labs CBC & Chem 7: 07/27/16 11:59 07/27/16 19:30 Labs: Abnormal lab results 07/27/16 07/27/16 07/27/16 Range/Units 11:37 11:59 11:59 RBC 2.91 L (3.65-5.03) M/mm3 Hgb 8.4 L (10.1-14.3) gm/dl Hct 27.2 L (30.3-42.9) % RDW 20.4 H (13.2-15.2) % Lymph # 1.1 L (1.2-5.4) K/mm3 Seg Neutrophils % 80.2 H (40.0-70.0) % Potassium 8.3 H* (3.6-5.0) mmol/L Carbon Dioxide 11 L (22-30) mmol/L BUN 75 H (7-17) mg/dL Creatinine 9.3 H (0.7-1.2) mg/dL Urine WBC (Auto) > 182.0 H (0.0-6.0) /HPF Assessment and Plan Severe hyperkalemia. Potassium 8.3 on presentation. Admit to telemetry. She has been given Insulin iv, and 50% dextrose, and calcium IV. Nephrology was consulted urgently and she will get urgent hemodialysis today. Metabolic encephalopathy due to missed hemodialysis. ESRD on hemodialysis. Hypertension. BP stable. Not on anti-hypertensive. Seizure disorder. Continue Keppra twice daily Bipolar disorder DVT prophylaxis with Lovenox. Full CODE STATUS Medical noncompliance
[2016-07-27] MEDS ORDERED: PERCOCET 5/325 PO PRN (14:21)
[2016-07-27] MEDS ORDERED: PROAIR IH PRN (14:21)
[2016-07-27] MEDS ORDERED: NON-FORMULARY (Esomeprazole Magnesium [Nexium] 40 MG) PO SCH (14:30)
[2016-07-27] MEDS ORDERED: ZOFRAN IV PRN (14:31)
[2016-07-27] MEDS ORDERED: TYLENOL PO PRN (14:31)
[2016-07-27] MEDS ORDERED: DULCOLAX PR PRN (14:31)
[2016-07-27] MEDS ORDERED: PROVENTIL IH PRN (14:47)
[2016-07-27] MEDS ORDERED: KIONEX PO ONE (15:00)
--- NOTE | 2016-07-27 16:05 | Consultation ---
History of Present Illness - History of Present Illness Thank you for the consultation Patient was evaluated today during dialysis Assessment and plan End-stage renal disease currently on maintenance hemodialysis case was discussed with our nurse practitioner Gayle Campos patient did get last dialysis on Tuesday. According to Ms Gayle Campos patient does have some prolonged bleeding postdialysis Will also do potassium level 90 minutes into the treatment as well as a postdialysis basic metabolic profile Admitted with severe life-threatening hyperkalemia? Compliance? Having access issues we'll check a post dialysis BUN Admission potassium was 8.3 Patient also does have severe metabolic acidosis bicarbonate around 11 with some labored breathing to follow Ears to have approximately 1+ edema Patient will also need of vascular Doppler of her axis to make sure there is no axis recirculation issues Anemia in end-stage renal disease to monitor and follow Secondary hyperparathyroidism to monitor phosphorus and PTH Patient does have history of poor compliance in the past Does have underlying psychiatric issues We'll continue to follow and make recommendation from renal standpoint Medications and Allergies Allergies Allergy/AdvReac Type Severity Reaction Status Date / Time codeine Allergy Rash Verified 03/04/16 15:27 Sulfa (Sulfonamide Allergy Rash Verified 03/04/16 15:27 Antibiotics) Home Medications Medication Instructions Recorded Confirmed Last Taken Type FLUoxetine HCL [PROzac] 40 mg PO QDAY 03/19/16 07/27/16 1 Day Ago History oxyCODONE /ACETAMINOPHEN [Percocet 1 tab PO Q6HR PRN #24 tablet 03/24/16 1 Day Ago Rx 5/325 mg] Albuterol Sulfate [Ventolin HFA] 2 puff IH Q4H PRN 03/31/16 07/27/16 1 Day Ago History Esomeprazole Magnesium [NexIUM] 40 mg PO QDAY 03/31/16 07/27/16 1 Day Ago History Gabapentin [Neurontin] 100 mg PO BID 03/31/16 07/27/16 1 Day Ago History levETIRAcetam [Keppra TAB] 500 mg PO BID 03/31/16 07/27/16 1 Day Ago History Hydroxyzine HCl [hydrOXYzine] 50 mg PO BID #60 tablet 06/18/16 07/27/16 1 Day Ago Rx clonazePAM [Klonopin] 1 mg PO BID PRN #60 tablet 06/18/16 07/27/16 1 Day Ago Rx Active Meds: Active Medications Acetaminophen (Tylenol) 650 mg PO Q4H PRN PRN Reason: Pain MILD(1-3)/Fever >100.5/ROCHE Albuterol (Proventil) 2.5 mg IH Q4HRT PRN PRN Reason: Shortness Of Breath Bisacodyl (Dulcolax) 10 mg LA QDAY PRN PRN Reason: Constipation unrelieved by MOM Enoxaparin Sodium (Lovenox) 30 mg SUB-Q DAILY@2200 [facility] Gabapentin (Neurontin) 100 mg PO BID DAVIN Levetiracetam (Keppra) 500 mg PO BID [facility] Ondansetron HCl (Zofran) 4 mg IV Q6H PRN PRN Reason: nausea or vomiting Oxycodone/Acetaminophen (Percocet 5/325) 1 tab PO Q6HR PRN PRN Reason: Pain Pantoprazole Sodium (Protonix) 40 mg PO DAILY [facility] Exam - Vital Signs Vital signs: Vital Signs Resp 22 07/27/16 10:15 Results - Lab Results 07/27/16 11:59 07/27/16 11:59 Most recent lab results Calcium 8.9 mg/dL (8.4-10.2) 07/27/16 11:59
[2016-07-27 20:11] LABS: BUN/Creatinine Ratio 6.08; Calcium 8.1 mg/dL (8.4-10.2); Chloride 96.1 mmol/L (98-107)
[2016-07-27 20:17] LABS: Potassium 2.7 mmol/L (3.6-5.0)
[2016-07-27] MEDS ORDERED: K-DUR PO ONE (21:39)
[2016-07-27] MEDS ORDERED: LOVENOX SUB-Q SCH (22:00)
[2016-07-28] MEDS: KEPPRA PO SCH ×4 (00:38→21:27)
[2016-07-28] MEDS: PROTONIX PO SCH ×2 (00:38→10:30)
[2016-07-28] MEDS: NEURONTIN PO SCH ×3 (00:39→21:27)
[2016-07-28] MEDS: LOVENOX SUB-Q SCH ×2 (00:40→21:28)
[2016-07-28] MEDS ORDERED: ASPIRIN PO ONE (01:00)
[2016-07-28] MEDS ORDERED: K-DUR PO ONE (01:00)
[2016-07-28 05:50] LABS: Basophils % (Auto) 1.3 % (0.0-1.8); Eosinophils % (Auto) 3.4 % (0.0-4.3); Hematocrit 24.4 % (30.3-42.9); Hemoglobin 7.7 gm/dl (10.1-14.3); Mean Corpuscular HGB Conc 32 % (30-34); Mean Corpuscular Hemoglobin 29 pg (28-32); Mean Corpuscular Volume 91 fl (79-97); Platelet Count 237 K/mm3 (140-440); Red Blood Count 2.68 M/mm3 (3.65-5.03); Red Cell Distribution Width 19.6 % (13.2-15.2); White Blood Count 6.1 K/mm3 (4.5-11.0)
[2016-07-28 06:09] LABS: BUN/Creatinine Ratio 5.67; Calcium 8.4 mg/dL (8.4-10.2); Chloride 96.4 mmol/L (98-107); Potassium 4.5 mmol/L (3.6-5.0)
--- NOTE | 2016-07-28 08:07 | Progress Note ---
Assessment and Plan end-stage renal disease patient is status post dialysis as of yesterday, patient will be kept on dialysis for dialysis Tuesday her encephalopathy appears to have markedly improved patient needs to have psychiatric evaluation and follow-up Judicious use of pain medication is suggested here she should be under care of pain clinic As far as her access is concerned she should be getting a vascular evaluation as patient has been admitted with hyperkalemia to make sure she does not have any evidence of vascular stenosis Anemia and end-stage renal disease to monitor erythropoietin as needed Secondary hyperparathyroidism to monitor phosphorus and PTH patient has very poor lifestyle and eating habit Had a portion due to discussed the care plan with patient's about all the above We'll continue to follow make recommendation from renal standpoint Subjective Interval history: Patient is seen today for follow-up she seems to be alert overweight does follow command Upon asking when was the last evaluation with vascular surgery patient states that it was in 2006? Patient denies having any chest pain pressure or shortness of breath Potassium did improve markedly after dialysis She has mild shortness of breath today Objective - Vital Signs Vital signs: Vital Signs - 12hr 07/27/16 07/27/16 07/28/16 21:00 21:44 00:00 Temperature 98.3 F 97.7 F 98.3 F Pulse Rate 79 Pulse Rate [ 80 74 Right] Respiratory 18 20 18 Rate Blood Pressure 114/79 Blood Pressure 105/51 113/53 [Right Arm] O2 Sat by Pulse 97 97 Oximetry 07/28/16 05:00 Temperature 98.1 F Pulse Rate Pulse Rate [ 68 Right] Respiratory 21 Rate Blood Pressure Blood Pressure 119/57 [Right Arm] O2 Sat by Pulse 98 Oximetry - General Appearance General appearance: appears stated age EENT: mucous membranes moist Neck: no JVD Respiratory: Present: Rales (bilateral basilar crackles posteriorly) Cardiology: regular Gastrointestinal: normal (soft nontender) Integumentary: other (edema 1+) Neurologic: alert and oriented x3 - Lab 07/28/16 05:13 07/28/16 05:13 Most recent lab results Calcium 8.4 mg/dL (8.4-10.2) 07/28/16 05:13
--- NOTE | 2016-07-28 09:32 | Consultation ---
REASON FOR CONSULTATION: Management of severe hyperkalemia and the patient with end-stage renal disease, currently being admitted to altered mental status. SOURCE OF INFORMATION: From patient's current chart. The patient is unable to provide any history as she had taken Klonopin three of this morning. HISTORY OF PRESENT ILLNESS: The patient is a 61-year-old -Welsh female, who has a history of underlying psychiatric problem and currently being dialyzed Tuesday, , and Tuesday. The patient's last dialysis was Tuesday. Apparently this morning according to the patient's , she took Klonopin and has been somnolence. The patient's had called the ambulance and she was brought into the ER. Upon evaluation, she was noted to have potassium of 8.3 with a bicarb of 11, BUN of 35, creatinine was 9.3 prompting this urgent consultation. No further information could be obtained due to altered mental status. PAST MEDICAL HISTORY: Significant for, 1. End-stage renal disease. 2. Anemia on end-stage renal disease. 3. Secondary hyperparathyroidism. 4. Diabetes. 5. Heart failure. 6. Hypertension. 7. DVT of the right calf. 8. Gastroesophageal reflux disorder. 9. Arthritis. 10. Seizure. 11. Anxiety. 12. Bipolar. 13. Asthma. 14. COPD. PAST SURGICAL HISTORY: Significant for hysterectomy, right shoulder surgery, and ankle surgery. HOME MEDICATIONS: Fluoxetine, oxycodone, albuterol, esomeprazole, gabapentin, Keppra, oxycodone, and Klonopin. REVIEW OF SYSTEMS: Unable to obtain due to altered mental status. PHYSICAL EXAMINATION: GENERAL: The patient is a 61-year-old -[place]el[place] female, lying comfortably in bed, getting dialyzed, able to open her eyes. HEENT: Pupils are reactive, but sluggish, about 3 mm in size. Oral mucosa moist. NECK: Supple without thyromegaly. No JVD. CHEST: The patient does have a few bilateral basilar crackles posteriorly. HEART: Regular rate and rhythm. S1 and S2 heard. No S3 or S4. ABDOMEN: Soft, nontender. No voluntary guarding, rebound, organomegaly, or masses. EXTREMITIES: The patient does have 1+ edema. Her fistula has a good thrill, but she does appear to have a sharp bruit proximally. NEUROLOGIC: The patient is arousable, but defer to go back to sleep. LABORATORY DATA AND X-RAYS: As of this admission, sodium 145, potassium 8.3, chloride 100, bicarbonate 11, BUN 75, creatinine is 9.3, white cell count , hemoglobin 8.4, hematocrit 27.2, and platelet count is 288,000. Urinalysis shows more than 182 white blood cells, red blood cells around 27. ASSESSMENT AND PLAN: 1. End-stage renal disease. The patient is currently on maintenance hemodialysis. The patient did dialyze last Tuesday. 2. Admitted with severe hyperkalemia and acidosis, ? compliance, ? having access issues. We will do a post-dialysis BUN to make sure her access is working well. 3. Admission potassium was 8.3, which is very high in dialysis patient, but the patient has had this problem in the past as well. We would like to proceed with checking her access to make sure she does not have any issues related to her access. 4. Severe metabolic acidosis. 5. Altered mental status. The patient does have underlying psychiatric problems, currently on Klonopin as well as narcotic, this should addressed during this admission. 6. Edema approximately 1+ suggestive of fluid overload. 7. We will need a Doppler for vascular access. 8. Anemia on end-stage renal disease to monitor erythropoietin as needed. 9. Secondary hyperparathyroidism to monitor phosphorus and PTH level. 10. History of poor compliance. PLAN: Plan of care discussed with the patient's dialysis nurse. She was also seen and supervised in hemodialysis at this time, I would like do a post-dialysis basic metabolic profile, also suggest that she should get a vascular Doppler of her access and if abnormal, should be considered for fistulogram as the patient has had severely high potassium even though she was dialyzed on Tuesday. I believe she will also benefit from psychiatric evaluation given that she has taken three Klonopin per records. All questions were answered to the dialysis nurse. We will continue to follow and make recommendations from renal standpoint. JOB# [id number] JORGE/DENNISE COE
--- NOTE | 2016-07-28 10:36 | Progress Note ---
Hospitalist Physical - Constitutional Vitals: Temp Pulse Resp BP Pulse Ox 97.5 F L 68 18 119/57 100 07/28/16 09:16 07/28/16 09:16 07/28/16 09:16 07/28/16 09:16 07/28/16 09:16 General appearance: Present: no acute distress Results - Labs CBC & Chem 7: 07/28/16 05:13 07/28/16 05:13 Labs: Laboratory Last Values WBC 6.1 K/mm3 (4.5-11.0) 07/28/16 05:13 RBC 2.68 M/mm3 (3.65-5.03) L 07/28/16 05:13 Hgb 7.7 gm/dl (10.1-14.3) L 07/28/16 05:13 Hct 24.4 % (30.3-42.9) L 07/28/16 05:13 MCV 91 fl (79-97) D 07/28/16 05:13 MCH 29 pg (28-32) 07/28/16 05:13 MCHC 32 % (30-34) 07/28/16 05:13 RDW 19.6 % (13.2-15.2) H 07/28/16 05:13 Plt Count 237 K/mm3 (140-440) 07/28/16 05:13 Lymph % (Auto) 17.1 % (13.4-35.0) 07/28/16 05:13 [place] % (Auto) 7.8 % (0.0-7.3) H 07/28/16 05:13 Eos % (Auto) 3.4 % (0.0-4.3) 07/28/16 05:13 Baso % (Auto) 1.3 % (0.0-1.8) 07/28/16 05:13 Lymph # 1.0 K/mm3 (1.2-5.4) L 07/28/16 05:13 [place] # 0.5 K/mm3 (0.0-0.8) 07/28/16 05:13 Eos # 0.2 K/mm3 (0.0-0.4) 07/28/16 05:13 Baso # 0.1 K/mm3 (0.0-0.1) 07/28/16 05:13 Seg Neutrophils % 70.4 % (40.0-70.0) H 07/28/16 05:13 Seg Neutrophils # 4.3 K/mm3 (1.8-7.7) 07/28/16 05:13 Sodium 142 mmol/L (137-145) 07/28/16 05:13 Potassium 4.5 mmol/L (3.6-5.0) D 07/28/16 05:13 Chloride 96.4 mmol/L (98-107) L 07/28/16 05:13 Carbon Dioxide 25 mmol/L (22-30) 07/28/16 05:13 Anion Gap 25 mmol/L 07/28/16 05:13 BUN 21 mg/dL (7-17) H 07/28/16 05:13 Creatinine 3.7 mg/dL (0.7-1.2) H D 07/28/16 05:13 Estimated GFR 15 ml/min 07/28/16 05:13 BUN/Creatinine Ratio 5.67 % 07/28/16 05:13 Glucose 63 mg/dL (65-100) L 07/28/16 05:13 Calcium 8.4 mg/dL (8.4-10.2) 07/28/16 05:13 Urine Color Yellow (Yellow) 07/27/16 11:37 Urine Turbidity Cloudy (Clear) 07/27/16 11:37 Urine pH 6.0 (5.0-7.0) 07/27/16 11:37 Ur Specific [place] 1.012 (1.003-1.030) 07/27/16 11:37 Urine Protein 100 mg/dl mg/dL (Negative) 07/27/16 11:37 Urine Glucose (UA) Neg mg/dL (Negative) 07/27/16 11:37 Urine Ketones Neg mg/dL (Negative) 07/27/16 11:37 Urine Blood Lg (Negative) 07/27/16 11:37 Urine Nitrite Neg (Negative) 07/27/16 11:37 Urine Bilirubin Neg (Negative) 07/27/16 11:37 Urine Ictotest Negative (Negative) 07/27/16 11:37 Urine Urobilinogen < 2.0 mg/dL (<2.0) 07/27/16 11:37 Ur Leukocyte Esterase Lg (Negative) 07/27/16 11:37 Urine WBC (Auto) > 182.0 /HPF (0.0-6.0) H 07/27/16 11:37 Urine RBC (Auto) 27.0 /HPF (0.0-6.0) 07/27/16 11:37 U Epithel Cells (Auto) 1.0 /HPF (0-13.0) 07/27/16 11:37 Urine WBC Clumps 2+ /HPF 07/27/16 11:37 Urine Mucus Few /HPF 07/27/16 11:37 Urine Opiates Screen Presumptive negative 07/27/16 11:37 Urine Methadone Screen Presumptive negative 07/27/16 11:37 Ur Barbiturates Screen Presumptive negative 07/27/16 11:37 Ur Phencyclidine Scrn Presumptive negative 07/27/16 11:37 Ur Amphetamines Screen Presumptive negative 07/27/16 11:37 U Benzodiazepines Scrn Presumptive negative 07/27/16 11:37 Urine Cocaine Screen Presumptive negative 07/27/16 11:37 U Marijuana (THC) Screen Presumptive negative 07/27/16 11:37 Drugs of Abuse Note Disclamer 07/27/16 11:37
[2016-07-28] MEDS ORDERED: NACL 0.9% 100 ML IV PRN (13:44)
--- NOTE | 2016-07-28 15:11 | Consultation ---
History of Present Illness - Reason for Consult Consult date: 07/28/16 AV access - History of Present Illness 61-year-old with history of end-stage renal disease T-, hypertension, and seizure disorder who has been on dialysis in since 2011 where she had a left upper extremity AV access placed by a vascular surgeon in [place]. Since then, she has never had a fistulogram, and there is concern for possible recirculation. She has mild left arm swelling, and no head swelling. She was admitted for hyperkalemia. She denies claudication, but can only walk less than 1 block before she becomes overall fatigued. Denies TIAs. Past History Past Medical History: ESRD (on hemodialysis), hypertension, seizures, other ( anxiety, bipolar disorder, polycystic kidney disease.) Past Surgical History: hysterectomy, Other (ankle surgery, shoulder surgery, AV fistula repair, abdominal hematoma evacuation.) Social history: , lives with family, smoking (no smoking), alcohol abuse (no alcohol), full code Family history: no significant family history Medications and Allergies Allergies Allergy/AdvReac Type Severity Reaction Status Date / Time codeine Allergy Rash Verified 03/04/16 15:27 Sulfa (Sulfonamide Allergy Rash Verified 03/04/16 15:27 Antibiotics) Home Medications Medication Instructions Recorded Confirmed Last Taken Type FLUoxetine HCL [PROzac] 40 mg PO QDAY 03/19/16 07/27/16 1 Day Ago History oxyCODONE /ACETAMINOPHEN [Percocet 1 tab PO Q6HR PRN #24 tablet 03/24/16 1 Day Ago Rx 5/325 mg] Albuterol Sulfate [Ventolin HFA] 2 puff IH Q4H PRN 03/31/16 07/27/16 1 Day Ago History Esomeprazole Magnesium [NexIUM] 40 mg PO QDAY 03/31/16 07/27/16 1 Day Ago History Gabapentin [Neurontin] 100 mg PO BID 03/31/16 07/27/16 1 Day Ago History levETIRAcetam [Keppra TAB] 500 mg PO BID 03/31/16 07/27/16 1 Day Ago History Hydroxyzine HCl [hydrOXYzine] 50 mg PO BID #60 tablet 06/18/16 07/27/16 1 Day Ago Rx clonazePAM [Klonopin] 1 mg PO BID PRN #60 tablet 06/18/16 07/27/16 1 Day Ago Rx Active Meds: Active Medications Acetaminophen (Tylenol) 650 mg PO Q4H PRN PRN Reason: Pain MILD(1-3)/Fever >100.5/ROCHE Albuterol (Proventil) 2.5 mg IH Q4HRT PRN PRN Reason: Shortness Of Breath Last Admin: 07/28/16 13:05 Dose: 2.5 mg Bisacodyl (Dulcolax) 10 mg PA QDAY PRN PRN Reason: Constipation unrelieved by MOM Enoxaparin Sodium (Lovenox) 30 mg SUB-Q DAILY@2200 [facility] Last Admin: 07/28/16 00:40 Dose: 30 mg Gabapentin (Neurontin) 100 mg PO BID [facility] Last Admin: 07/28/16 10:30 Dose: 100 mg Sodium Chloride (Nacl 0.9%) 100 mls @ 999 mls/hr IV MYAH PRN PRN Reason: Hypotension Levetiracetam (Keppra) 500 mg PO BID [facility] Last Admin: 07/28/16 10:30 Dose: 500 mg Ondansetron HCl (Zofran) 4 mg IV Q6H PRN PRN Reason: nausea or vomiting Oxycodone/Acetaminophen (Percocet 5/325) 1 tab PO Q6HR PRN PRN Reason: Pain Last Admin: 07/28/16 10:30 Dose: 1 tab Pantoprazole Sodium (Protonix) 40 mg PO DAILY [facility] Last Admin: 07/28/16 10:30 Dose: 40 mg Review of Systems All systems: negative (see history of present illness) Exam - Constitutional Vitals: Temp Pulse Resp BP Pulse Ox 97.6 F 83 18 119/59 90 07/28/16 13:33 07/28/16 13:33 07/28/16 13:33 07/28/16 13:33 07/28/16 13:33 General appearance: Present: no acute distress - EENT Eyes: Present: EOM intact ENT: hearing intact - Respiratory Respiratory effort: normal - Extremities Extremities: pulses intact (palpable bilateral dorsalis pedis pulses), normal temperature, normal color, abnormal (thrill in left upper extremity AV access; mild swelling of left upper extremity) - Psychiatric Psychiatric: appropriate mood/affect, cooperative Results - Labs CBC & Chem 7: 07/28/16 05:13 07/28/16 05:13 Labs: Abnormal lab results 07/27/16 07/28/16 07/28/16 Range/Units 19:30 05:13 05:13 RBC 2.68 L (3.65-5.03) M/mm3 Hgb 7.7 L (10.1-14.3) gm/dl Hct 24.4 L (30.3-42.9) % RDW 19.6 H (13.2-15.2) % [place] % (Auto) 7.8 H (0.0-7.3) % Lymph # 1.0 L (1.2-5.4) K/mm3 Seg Neutrophils % 70.4 H (40.0-70.0) % Potassium 2.7 L* D (3.6-5.0) mmol/L Chloride 96.1 L 96.4 L (98-107) mmol/L BUN 21 H (7-17) mg/dL Creatinine 2.3 H D 3.7 H D (0.7-1.2) mg/dL Glucose 63 L (65-100) mg/dL Calcium 8.1 L (8.4-10.2) mg/dL Assessment and Plan 61-year-old female with end-stage renal disease and left upper shoulder B AV access placed in 2011 [place] with mild left upper extremity swelling who was never had a fistulogram performed before. She was admitted with concern for recirculation. Nothing by mouth after midnight. Fistulogram in a.m.
--- NOTE | 2016-07-29 08:11 | Progress Note ---
Assessment and Plan End-stage renal disease patient is currently on maintenance hemodialysis Admitted with severe hyperkalemia and metabolic acidosis patient does need a fistulogram to make sure her access is working well Anemia and end-stage renal disease to monitor Will need PRBC tomorrow monitor Hb Secondary hyperparathyroidism to monitor phosphorus and PTH level Underlying psychiatric illness took extra Klonopin patient needs to be monitored closely May benefit from a psych evaluation Case has already been discussed with vascular surgery regarding a fistulogram today Patient can go for dialysis after fistulogram and if doing well can be considered for discharge from renal standpoint She will need to be followed in the dialysis clinic Overall she appears to be doing better from renal standpoint Subjective Interval history: Patient was seen today for follow-up. pending fistulogram today Denies any complaints of chest pain pressure or shortness of breath Vitals labs intake output medications were reviewed Events at 24 hours were noted Objective - Vital Signs Vital signs: Vital Signs - 12hr 07/28/16 07/28/16 07/29/16 20:45 22:00 00:26 Temperature 97.8 F 98.2 F Pulse Rate [ 83 74 Right] Respiratory 20 18 Rate Blood Pressure 142/71 135/68 [Right Arm] O2 Sat by Pulse 93 98 99 Oximetry 07/29/16 07/29/16 05:24 07:41 Temperature 98.2 F 98.1 F Pulse Rate [ 78 74 Right] Respiratory 18 12 Rate Blood Pressure 157/86 140/71 [Right Arm] O2 Sat by Pulse 94 100 Oximetry - General Appearance General appearance: appears stated age EENT: mucous membranes moist Neck: no JVD Respiratory: Present: Clear to Ascultation Cardiology: regular Gastrointestinal: normal Neurologic: other (AAO x 4) - Lab 07/28/16 05:13 07/28/16 05:13 Most recent lab results Calcium 8.4 mg/dL (8.4-10.2) 07/28/16 05:13
[2016-07-29] MEDS ORDERED: XYLOCAINE 1%/ EPI 1:100,000 INFILTRATI ONE (09:52)
[2016-07-29] MEDS ORDERED: HEPARIN/NS 5000 UNIT/500ML(CATH LAB) 1,000 ML IR ONE (09:52)
[2016-07-29] MEDS ORDERED: HEPARIN 10,000 UNITS/10 ML ONE (09:52)
[2016-07-29] MEDS ORDERED: NACL 0.9% 250ML 250 ML ONE (09:53)
[2016-07-29] MEDS ORDERED: ANCEF/STERILE WATER 2 GM/20 ML 2 GM/20 ML SYRINGE IV ONE (09:53)
[2016-07-29] MEDS: SUBLIMAZE ONE ×3 (10:32→10:40)
[2016-07-29] MEDS: VERSED ONE ×2 (10:32→10:40)
[2016-07-29] MEDS ORDERED: BENADRYL ONE (10:50)
--- NOTE | 2016-07-29 10:51 | Discharge Summary ---
Providers - Providers Date of Admission: 07/27/16 12:48 Date of discharge: 07/29/16 Attending physician: KENNETH HICKS 07/27/16 14:20 Consult to Physician [CONS] Urgent Consulting Provider: ALEJANDRO TORRES Reason For Exam: hyperkalemia, ESRD Place consult to:: Dr. Torres Notified:: Office notified by Dr. Louise 07/28/16 10:36 Consult to Mental Health [CONS] Routine Reason For Exam: possibly took [address] consult to:: Psych Notified:: Gertrudis JOHNSON Phone number called:: [phone]. [phone] Was contact made?: Yes If yes, spoke with:: [facility] Time called:: 11:13 07/28/16 13:43 Consult to Physician [CONS] Routine Consulting Provider: WINSTON SMILEY Reason For Exam: fistula evaluation hyperkalemia Place consult to:: Dr. Smiley Notified:: Gertrudis JOHNSON Phone number called:: Was contact made?: Yes If yes, spoke with:: [facility] Time called:: 14:15 Primary care physician: [facility] Hospitalization Condition: Good Disposition: DISCHARGED TO HOME OR SELFCARE - Discharge Diagnoses (1) Hyperkalemia Status: Acute (2) ESRD on hemodialysis Status: Chronic (3) UTI (urinary tract infection) Status: Acute Qualifiers: Urinary tract infection type: site unspecified Hematuria presence: without hematuria Indwelling urinary catheter type: I Encounter type: E Qualified Code(s): N39.0 - Urinary tract infection, site not specified Exam - Constitutional Vitals: Temp Pulse Resp BP Pulse Ox 98.2 F 73 18 126/75 98 07/29/16 09:19 07/29/16 09:19 07/29/16 09:19 07/29/16 09:19 07/29/16 09:45 Plan Activity: no restrictions Diet: low fat, low cholesterol, low salt, renal Additional Instructions: 1.Follow up with PCP in1 week. 2.Continue routine hemodialysis as scheduled. Follow up with: PRIMARY CARE, [Primary Care Provider] - 3-5 Days
--- NOTE | 2016-07-29 11:27 | Operative Report ---
Operative Report Operative Report: EXAM: 1. Ultrasound guided access of the left arm AV graft 2. Placement of a sheath towards the venous outflow 3. Fistulogram 4. Angioplasty of the axillary vein, venous anastomosis, and midportion of the graft with an 8 mm angioplasty balloon. 5. Angioplasty of the left subclavian vein with a 12 mm angioplasty balloon 6. Angioplasty of the venous anastomosis with a 12 mm angioplasty balloon DATE: 07/29/16 SWITCH OPERATOR: WINSTON ANG MD INDICATION: End stage renal disease with left AV graft malfunction and left upper extremity swelling. MEDICATIONS: Please see nursing report for full details. DEVICES: 8 mm angioplasty balloon 12 mm angioplasty balloon PROCEDURE: The risks, benefits, and alternatives of the procedure were discussed and written informed consent was obtained. The patient was transported in stable condition to the angiography suite. The patient's left arm AV graft was assessed by ultrasound and was patent. The patient was prepped and draped in a sterile fashion. Under ultrasound guidance, the left arm AV graft was accessed with a 21-gauge micropuncture needle. The area was anesthetized prior to access. 0.018 inch wire was advanced through the micropuncture needle into the fistula and then the needle was exchanged for a 5 [place] transitional dilator. The inner dilator and wire were removed and a 0.035 inch wire was advanced through the venous outflow. The transitional dilator was exchanged for a 6 [place] short sheath. Fistulogram was performed of the venous outflow and central veins. Digital subtraction angiography demonstrated mild narrowing within the AV graft with a severe venous anastomotic narrowing and a mild to moderate narrowing in the axillary vein with a moderate to severe narrowing in the left subclavian vein. The left innominate vein and SVC were widely patent. Sheath was upsized to a 7 [place] short sheath. Angioplasty with an 8 mm angioplasty balloon was performed at the venous anastomosis and throughout the length of the AV graft to the sheath. During angioplasty, contrast was injected resulting in reflux into the arterial anastomosis. Digital subtraction angiography demonstrates no evidence of narrowing in the perianastomotic or anastomotic region and the brachial artery leading to the anastomosis in the brachial artery distal to the anastomosis were patent. 8 mm angioplasty balloon was then used to perform angioplasty at the midportion of the left axillary vein. 12 mm angioplasty balloon was used to perform angioplasty at the left subclavian vein. Digital subtraction angiography was performed demonstrating resolution of narrowing in the left subclavian vein and left axillary vein. There is resolution of the irregularity was in the AV graft, but there is moderate residual narrowing at the venous anastomosis. 12 mm angioplasty balloon was used to perform angioplasty at the venous anastomosis. Digital subtraction angiography was performed demonstrating minimal residual narrowing at the venous anastomosis. There was prompt flow into the venous outflow. I considered placing a FLAIR stent graft at the venous anastomosis, but the patient has had 5 years of dialysis without any fistulogram being performed. Therefore, I decided to not place a stent graft at this time. If her venous anastomosis recurs and is not easily treated with angioplasty, then stent grafting will likely be performed. The wire was removed and the site was closed with a 3-0 Vicryl suture. The sheath was then removed. Hemostasis was achieved with slight manual compression. The patient was transported from the angiography suite to the floor in stable condition. FINDINGS: Please see procedure note above. IMPRESSION: Successful fistulogram and venoplasty as descibed above of the AV graft, venous anastomosis, axillary vein, and left subclavian vein.
[2016-07-29] MEDS ORDERED: NACL 0.9 (PRIMING MACHINE ONLY DIALYSIS) MC ONE (11:44)
[2016-07-29] MEDS: PROTONIX PO SCH (14:42)
--- NOTE | 2016-07-29 16:29 | Consultation ---
History of Present Illness - Reason for Consult Consult date: 07/29/16 Reason for consult: Psychiatry Follow-up - Chief Complaint Chief complaint: "I did not mean to take the pills" - History of Present Psychiatric Illness 61-year-old -Citizen Of [place] female with a history of arthritis, asthma, congestive heart failure, COPD, DVT, diabetes, GERD, hypertension, bipolar disorder with anxiety, end-stage renal disease on hemodialysis. Patient was seen today because she took more Klonopine then usual. She denied being suicidal during the event. She stated, "I thought it was just one pill at the time." On admission she was assessed as being altered. She acknowledged getting this medication from her doctor in [place]. I recommended that she get a Psychiatrist or Nurse Practitioner locally to manage her medications. She has a hx of Bipolar and NORAH. She denies SI/HI's or AVH's. Medications and Allergies Allergies Allergy/AdvReac Type Severity Reaction Status Date / Time codeine Allergy Rash Verified 03/04/16 15:27 Sulfa (Sulfonamide Allergy Rash Verified 03/04/16 15:27 Antibiotics) Home Medications Medication Instructions Recorded Confirmed Last Taken Type FLUoxetine HCL [PROzac] 40 mg PO QDAY 03/19/16 07/27/16 1 Day Ago History oxyCODONE /ACETAMINOPHEN [Percocet 1 tab PO Q6HR PRN #24 tablet 03/24/16 1 Day Ago Rx 5/325 mg] Albuterol Sulfate [Ventolin HFA] 2 puff IH Q4H PRN 03/31/16 07/27/16 1 Day Ago History Esomeprazole Magnesium [NexIUM] 40 mg PO QDAY 03/31/16 07/27/16 1 Day Ago History Gabapentin [Neurontin] 100 mg PO BID 03/31/16 07/27/16 1 Day Ago History levETIRAcetam [Keppra TAB] 500 mg PO BID 03/31/16 07/27/16 1 Day Ago History Hydroxyzine HCl [hydrOXYzine] 50 mg PO BID #60 tablet 06/18/16 07/27/16 1 Day Ago Rx clonazePAM [Klonopin] 1 mg PO BID PRN #60 tablet 06/18/16 07/27/16 1 Day Ago Rx Active Meds: Active Medications Acetaminophen (Tylenol) 650 mg PO Q4H PRN PRN Reason: Pain MILD(1-3)/Fever >100.5/ROCHE Albuterol (Proventil) 2.5 mg IH Q4HRT PRN PRN Reason: Shortness Of Breath Last Admin: 07/28/16 13:05 Dose: 2.5 mg Bisacodyl (Dulcolax) 10 mg ND QDAY PRN PRN Reason: Constipation unrelieved by MOM Enoxaparin Sodium (Lovenox) 30 mg SUB-Q DAILY@2200 [facility] Last Admin: 07/28/16 21:28 Dose: 30 mg Gabapentin (Neurontin) 100 mg PO BID [facility] Last Admin: 07/28/16 21:27 Dose: 100 mg Sodium Chloride (Nacl 0.9%) 100 mls @ 999 mls/hr IV MYAH PRN PRN Reason: Hypotension Levetiracetam (Keppra) 500 mg PO BID [facility] Last Admin: 07/28/16 21:27 Dose: 500 mg Ondansetron HCl (Zofran) 4 mg IV Q6H PRN PRN Reason: nausea or vomiting Oxycodone/Acetaminophen (Percocet 5/325) 1 tab PO Q6HR PRN PRN Reason: Pain Last Admin: 07/28/16 10:30 Dose: 1 tab Pantoprazole Sodium (Protonix) 40 mg PO DAILY [facility] Last Admin: 07/29/16 14:42 Dose: Not Given Past psychiatric history - Past Medical History Past Medical History: GERD, other (ESRD) Past Surgical History: Other - past Psychiatric treatment and history Psych: Anxiety, Bipolar psychiatric treatment history: Saw a psychiatrist in [place]. Patient denies a fam psy hx. - Social History Social history: Mental Status Exam - Vital signs Last Vital Signs Temp 98.7 F 07/29/16 11:30 Pulse 66 07/29/16 15:30 Resp 16 07/29/16 11:30 BP 115/54 07/29/16 15:30 Pulse Ox 98 07/29/16 09:45 - Exam Narrative exam: ROS (-) psychosis, (-) anxiety Results Result Diagrams: 07/28/16 05:13 07/28/16 05:13 All other labs normal. Assessment and Plan Assessment and plan: Impression: Hx of Bipolar and NORAH. Patient is calm and cooperative. She was getting HD during conversation. Recommendation/Plan: From a psychiatry perspective, patient is mentally stable. We are signing off this patient. Patient was provided mental health outpatient services information for her local area.
[2016-07-29 16:53] VITALS: BP 112/56
[2016-07-29] MEDS: NEURONTIN PO SCH (19:11)
[2016-07-29] MEDS: KEPPRA PO SCH (19:12)
== END 2016-07-29 21:00 | disposition home or self-care (01) | DRG 252 ==
LOC: ED 10:08 → 4A 12:48
PROVIDERS: ADMIT Internal Medicine; ATTEND Internal Medicine
PROC: 5A1D60Z (ICD-10-PCS; 2016-07-27)
PROC: B51V1ZZ Fluoroscopy of Other Veins using Low Osmolar Contrast (ICD-10-PCS; principal; 2016-07-29)
PROC: 05783ZZ Dilation of Left Axillary Vein, Percutaneous Approach (ICD-10-PCS; 2016-07-29)
PROC: 057Y3ZZ Dilation of Upper Vein, Percutaneous Approach (ICD-10-PCS; 2016-07-29)
PROC: B54NZZA Ultrasonography of Left Upper Extremity Veins, Guidance (ICD-10-PCS; 2016-07-29)
DX: T82.590A Other mechanical complication of surgically created arteriovenous fistula, initial encounter (principal); N18.6 End stage renal disease; G93.41 Metabolic encephalopathy; I13.2 Hypertensive heart and chronic kidney disease with heart failure and with stage 5 chronic kidney disease, or end stage renal disease; N17.9 Acute kidney failure, unspecified; N25.81 Secondary hyperparathyroidism of renal origin; E87.5 Hyperkalemia; M19.90 Unspecified osteoarthritis, unspecified site; J45.909 Unspecified asthma, uncomplicated; I50.9 Heart failure, unspecified; J44.9 Chronic obstructive pulmonary disease, unspecified; K21.9 Gastro-esophageal reflux disease without esophagitis; F31.9 Bipolar disorder, unspecified; F41.9 Anxiety disorder, unspecified; Z99.2 Dependence on renal dialysis; Z86.73 Personal history of transient ischemic attack (TIA), and cerebral infarction without residual deficits; Z90.710 Acquired absence of both cervix and uterus; F17.200 Nicotine dependence, unspecified, uncomplicated; G40.909 Epilepsy, unspecified, not intractable, without status epilepticus; Z91.19 Patient's noncompliance with other medical treatment and regimen; Z88.5 Allergy status to narcotic agent; Z88.2 Allergy status to sulfonamides; D63.8 Anemia in other chronic diseases classified elsewhere; Z86.718 Personal history of other venous thrombosis and embolism; E11.22 Type 2 diabetes mellitus with diabetic chronic kidney disease; Z72.9 Problem related to lifestyle, unspecified
CPT/HCPCS: 36415; 36902; 71010; 76937; 80048; 80307; 81001; 82962; 84520; 85025; 87086; 93005; 93010; 94640; 94760; 96365; 96375; C1725; C1751; C1769; C1894; J0690; J1200; J1644; J1650; J1815; J1956; J2250; J3010; J7030; J7050; Q9967

== ENCOUNTER 2016-09-29 20:13 | Emergency (ER) | payer MEDICARE ==
[2016-09-29 22:35] LABS: BUN/Creatinine Ratio 8.39; Calcium 9.3 mg/dL (8.4-10.2); Chloride 99.1 mmol/L (98-107); Potassium 4.6 mmol/L (3.6-5.0)
[2016-09-29] MEDS ORDERED: SUBLIMAZE IV ONE (23:30)
[2016-09-29] MEDS ORDERED: NACL 0.9% 500 ML 500 ML IV ONE (23:30)
[2016-09-29] MEDS ORDERED: ZOFRAN IV ONE (23:30)
[2016-09-29] MEDS ORDERED: DIPRIVAN 10 MG/ML IV ONE (23:34)
--- NOTE | 2016-09-29 23:35 | Emergency Department Report ---
HPI - General Chief Complaint: Pain General Time Seen by Provider: 09/29/16 23:20 - HPI HPI: The patient is a 61-year-old female who presents for evaluation of back pain and shoulder pain. The patient reports 3 weeks of pain to the left shoulder and upper back since a fall on September 06. She states that since she has o experienced n and off pain, worsened for the past one day, 10/10 severity, aching in quality, exacerbated with movement of the left upper back. She shares that she has chronic pain in the right shoulder secondary to a chronically dislocated right shoulder. She states that her right shoulder is not bothering her today. She denies, injury to the head, headache, chest pain, dyspnea, abdominal pain, back pain, paresthesias or motor deficit in the arms or legs. ED Past Medical Hx - Past Medical History Previous Medical History?: Yes Hx Hypertension: Yes Hx Congestive Heart Failure: Yes Hx Diabetes: Yes Hx Deep Vein Thrombosis: Yes (Right calf) Hx GERD: Yes Hx Renal Disease: Yes (Renal Failure) Hx Arthritis: Yes Hx Seizures: Yes Hx Psychiatric Treatment: Yes (Anxiety, Bipolar) Hx Asthma: Yes Hx COPD: Yes Hx HIV: No Additional medical history: TIA - Surgical History Past Surgical History?: Yes Hx Cholecystectomy: Yes Additional Surgical History: Hysterectomy, Right shoulder x3, Bilateral ankle fx repair - Social History Smoking Status: Never Smoker Substance Use Type: None - Medications Home Medications: Home Medications Medication Instructions Recorded Confirmed Last Taken Type FLUoxetine HCL [PROzac] 40 mg PO QDAY 03/19/16 07/27/16 1 Day Ago History oxyCODONE /ACETAMINOPHEN [Percocet 1 tab PO Q6HR PRN #24 tablet 03/24/16 1 Day Ago Rx 5/325 mg] Albuterol Sulfate [Ventolin HFA] 2 puff IH Q4H PRN 03/31/16 07/27/16 1 Day Ago History Esomeprazole Magnesium [NexIUM] 40 mg PO QDAY 03/31/16 07/27/16 1 Day Ago History Gabapentin [Neurontin] 100 mg PO BID 03/31/16 07/27/16 1 Day Ago History levETIRAcetam [Keppra TAB] 500 mg PO BID 03/31/16 07/27/16 1 Day Ago History Hydroxyzine HCl [hydrOXYzine] 50 mg PO BID #60 tablet 02/17/17 03/28/17 1 Day Ago Rx clonazePAM [Klonopin] 1 mg PO BID PRN #60 tablet 06/18/16 07/27/16 1 Day Ago Rx HYDROcodone/APAP 7.5-325 [[place] 1 each PO Q8HR PRN #10 tablet 09/30/16 Unknown Rx 7.5-325 mg TAB] ED Review of Systems ROS: Stated complaint: BODY PAIN Other details as noted in HPI Constitutional: denies: fever ENT: denies: throat or neck pain Respiratory: denies: cough, shortness of breath Cardiovascular: denies: chest pain Endocrine: denies unexplained weight loss or gain Gastrointestinal: denies: abdominal pain, nausea Genitourinary: denies: dysuria Musculoskeletal: reports back and shoulder pain denies: leg swelling Skin: denies: rash Neurological: denies: headache Hematological/Lymphatic: denies: easy bleeding or easy bruising Psych: denies sadness or hopelessness Physical Exam - Physical Exam Vital Signs: Vital Signs 09/29/16 21:41 Temperature 98.1 F Pulse Rate 83 Respiratory 18 Rate Blood Pressure 154/81 O2 Sat by Pulse 98 Oximetry Physical Exam: General: well-nourished, well-developed, no acute distress Head: Normocephalic, atraumatic Eyes: normal sclera ENT: Mucous membranes are pale and dry Neck: trachea midline, neck supple, No neck stiffness, no cervical adenopathy Respiratory: Breath sounds equal bilaterally, no wheezing, rales, or rhonchi Cardio: S1 and S2 present, no murmurs, rubs, gallops, capillary refill is delayed Abdomen: Normoactive bowel sounds, soft abdomen, no tenderness Musc: Inspection of the posterior neck, upper back, and left shoulder unremarkable, Left caudal and medial trapezius and left upper thoracic paraspinal musculature tenderness to palpation present, no midline cervical or thoracic spinous tenderness, no spinous step-off or obvious deformity, no pain elicited with extension of the neck or flexion of the neck, no pain in the left shoulder joint, no pain in the right shoulder joint Skin: No rash Neuro: no facial drooping, normal speech Psych: Normal affect ED Course Vital Signs 09/29/16 21:41 Temperature 98.1 F Pulse Rate 83 Respiratory 18 Rate Blood Pressure 154/81 O2 Sat by Pulse 98 Oximetry ED Medical Decision Making - Lab Data Result diagrams: 09/29/16 22:08 - Medical Decision Making The patient was seen and examined by myself. The patient is placed on a case monitor and continuous pulse ox. On initial evaluation, the patient was found to be in no distress. Evaluation orders were placed. The patient is given IV fentanyl for her pain, and normal saline fluid bolus for treatment of her dehydration. X-ray of the left shoulder is negative and x-ray of the right shoulder reveals right shoulder dislocation, consistent with patient's report of chronic and long-standing dislocated right shoulder. Lab results revealed elevated creatinine consistent with no history of renal disease. Otherwise labs and imaging are unremarkable. The patient was reevaluated and reported that their symptoms were markedly improved. The patient is stable for discharge with outpatient follow-up. The patient is given follow-up and return instructions. The patient expressed understanding and agreed with the plan. The patient is discharged in stable condition. Critical care attestation.: If time is entered above; I have spent that time in minutes in the direct care of this critically ill patient, excluding procedure time. ED Disposition Clinical Impression: Acute pain of left shoulder, Acute upper back pain, ESRD on hemodialysis, Dehydration Disposition: DISCHARGED TO HOME OR SELFCARE Is pt being admited?: No Does the pt Need Aspirin: No Condition: Stable Instructions: Chronic Kidney Disease (ED), Musculoskeletal Pain (ED) Referrals: PRIMARY CARE, [Primary Care Provider] - 3-5 Days Time of Disposition: 23:55
[2016-09-30] MEDS ORDERED: SUBLIMAZE IV ONE ×2 (01:07)
[2016-09-30 05:57] VITALS: BP 138/73
--- NOTE | 2016-09-30 15:27 | XRay Report ---
CERVICAL SPINE RADIOGRAPHS INDICATION: Neck pain. Fell 2 weeks ago. COMPARISON: None similar. FINDINGS: AP, lateral and open mouth cervical spine radiographs demonstrate unremarkable dens with symmetric lateral masses. Intact craniocervical articulation on the lateral view with normal predental space and prevertebral soft tissues. Imaged jaw edentulous. Approximately 2 mm anterolisthesis of C4 over C5 with mild angulation at this level noted. Mild C4 and C5 degenerative spurring. Mild to moderate C4-C5 disc narrowing as well. Normal remainder vertebral body stature and disc heights. Clear imaged lung apices. CONCLUSION: Nonspecific C4-C5 plain radiographic appearance in the given setting, though may be chronic/degenerative. Please also correlate clinically. I phoned the above results to Dr. Rabago in the ER at the time of this interpretation, 3:15 PM, 09/30/2016 who informed that patient had full range of neck movement without any tenderness on clinical exam when in the ER. Thank you for the opportunity to participate in this patient's care.
--- NOTE | 2016-10-01 07:34 | XRay Report ---
BILATERAL SHOULDERS, 3 VIEWS HISTORY: Bilateral shoulder pain. FINDINGS: Chronic anterior dislocation at the right glenohumeral joint is present. Bankhart lesion on the glenoid of the scapula is likely present. There are moderate osteoarthritic changes as well. Heterotopic calcifications or intra-articular bony fragments are suspected superior to the humeral head. Articulation of the a.c. joint appears anatomic. No acute fractures identified. This is unchanged dating back to AP chest dated 09/26/15. MRI right shoulder without contrast should provide the most information if further evaluation is needed. The left shoulder is within normal limits. 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 No acute injury is appreciated.
== END 2016-09-30 07:30 | disposition home or self-care (01) ==
LOC: ED 20:13
DX: M25.512 Pain in left shoulder (principal); M54.6 Pain in thoracic spine; E86.0 Dehydration; E11.22 Type 2 diabetes mellitus with diabetic chronic kidney disease; I12.0 Hypertensive chronic kidney disease with stage 5 chronic kidney disease or end stage renal disease; N18.6 End stage renal disease; Z99.2 Dependence on renal dialysis; K21.9 Gastro-esophageal reflux disease without esophagitis; F31.9 Bipolar disorder, unspecified; J45.909 Unspecified asthma, uncomplicated; J44.9 Chronic obstructive pulmonary disease, unspecified
CPT/HCPCS: 36415; 72040; 73030; 80048; 96361; 96374; 96375; 96376; 99285; J2405; J3010; J7040

== ENCOUNTER 2018-05-11 09:25 | Inpatient (IN) | payer MEDICARE ==
[2018-05-11] MEDS ORDERED: NACL 0.9% 1000 ML IV ONE (10:15)
[2018-05-11] MEDS ORDERED: ZOSYN/NS 4.5GM/100ML 4.5 GM/100 ML VIAL IV ONE (10:17)
[2018-05-11] MEDS ORDERED: NACL 0.9% 1000 ML 1,000 ML IV ONE ×2 (10:27→12:41)
--- NOTE | 2018-05-11 10:29 | Emergency Department Report ---
ED Altered Mental Status HPI - General Chief Complaint: Altered Mental Status Stated Complaint: MISSED DIALYSIS Time Seen by Provider: 05/11/18 10:09 Source: EMS Mode of arrival: Stretcher Limitations: Altered Mental Status - History of Present Illness Initial Comments: 62 female presents to ED from senior living for altered mental status and hypotension. Patient was given Seroquel yesterday and has apparently been more altered than usual. Patient has history of end-stage renal disease. senior living reports patient refused dialysis yesterday. Patient is lethargic, answers some questions. Patient has no complaints. When asked why she refused dialysis on yesterday patient states "I was being lazy." Patient has history of CHF, COPD, diabetes, bipolar and schizophrenia, respiratory failure with O2 dependency, chronic back and shoulder pain. MD Complaint: altered mental status -: This afternoon Severity: Unable to Determine Consistency of Symptoms: unknown Context: change in medication (given seroquel last night) Associated Symptoms: denies other symptoms - Related Data Home Medications Medication Instructions Recorded Confirmed Last Taken Albuterol Sulfate [Ventolin HFA] 2 puff IH Q4H PRN 03/31/16 05/11/18 04/14/18 10:00 ALBUTEROL NEB's [Proventil] 2.5 mg IH Q6H PRN 05/11/18 05/11/18 Unknown Acetaminophen [Tylenol] 650 mg PO Q4H PRN 05/11/18 05/11/18 Unknown Acetaminophen [Tylenol] 650 mg PO Q4H PRN 05/11/18 05/11/18 Unknown FLUoxetine [PROzac] 20 mg PO QDAY 05/11/18 05/11/18 Unknown Ferrous Sulfate [Iron] 325 mg PO BID 05/11/18 05/11/18 Unknown Hydroxyzine HCl [hydrOXYzine] 50 mg PO Q12H PRN 05/11/18 05/11/18 Unknown Quetiapine Fumarate [SEROquel] 50 mg PO Q12H 05/11/18 05/11/18 Unknown clonazePAM [Clonazepam] 1 mg PO Q12H PRN 05/11/18 05/11/18 Unknown Previous Rx's Medication Instructions Recorded Last Taken Type Esomeprazole Magnesium [NexIUM] 40 mg PO QDAY #30 capsule. 03/30/18 04/14/18 10:00 Rx Gabapentin [Neurontin] 100 mg PO Q12HR capsule 05/01/18 Unknown Rx Sevelamer Carbonate [Renvela] 2,400 mg PO AC tablet 05/01/18 Unknown Rx levETIRAcetam [Keppra TAB] 500 mg PO BID tablet 05/01/18 Unknown Rx oxyCODONE /ACETAMINOPHEN [Percocet 1 tab PO Q6H PRN #30 tablet 05/01/18 Unknown Rx 5/325 mg] Allergies Allergy/AdvReac Type Severity Reaction Status Date / Time codeine Allergy Rash Verified 03/04/16 15:27 Sulfa (Sulfonamide Allergy Rash Verified 03/04/16 15:27 Antibiotics) ED Review of Systems ROS: Stated complaint: MISSED DIALYSIS Other details as noted in HPI Comment: Unobtainable due to pts medical conditions (altered mental status) ED Past Medical Hx - Past Medical History Hx Hypertension: Yes Hx Congestive Heart Failure: Yes Hx Diabetes: Yes Hx Deep Vein Thrombosis: Yes (Right calf) Hx GERD: Yes Hx Renal Disease: Yes (ESRD; HD TTS) Hx Arthritis: Yes Hx Seizures: Yes Hx Psychiatric Treatment: Yes (Anxiety, Bipolar) Hx Asthma: Yes Hx COPD: Yes Hx HIV: No Additional medical history: TIA - Surgical History Hx Cholecystectomy: Yes Additional Surgical History: Hysterectomy, Right shoulder x3, Bilateral ankle fx repair, fistula left upper arm - Social History Smoking Status: Unknown if ever smoked - Medications Home Medications: Home Medications Medication Instructions Recorded Confirmed Last Taken Type Albuterol Sulfate [Ventolin HFA] 2 puff IH Q4H PRN 03/31/16 05/11/18 04/14/18 10:00 History Esomeprazole Magnesium [NexIUM] 40 mg PO QDAY #30 capsule. 03/30/18 05/11/18 04/14/18 10:00 Rx Gabapentin [Neurontin] 100 mg PO Q12HR capsule 05/01/18 05/11/18 Unknown Rx Sevelamer Carbonate [Renvela] 2,400 mg PO AC tablet 05/01/18 05/11/18 Unknown Rx levETIRAcetam [Keppra TAB] 500 mg PO BID tablet 05/01/18 05/11/18 Unknown Rx oxyCODONE /ACETAMINOPHEN [Percocet 1 tab PO Q6H PRN #30 tablet 05/01/18 05/11/18 Unknown Rx 5/325 mg] ALBUTEROL NEB's [Proventil] 2.5 mg IH Q6H PRN 05/11/18 05/11/18 Unknown History Acetaminophen [Tylenol] 650 mg PO Q4H PRN 05/11/18 05/11/18 Unknown History Acetaminophen [Tylenol] 650 mg PO Q4H PRN 05/11/18 05/11/18 Unknown History FLUoxetine [PROzac] 20 mg PO QDAY 05/11/18 05/11/18 Unknown History Ferrous Sulfate [Iron] 325 mg PO BID 05/11/18 05/11/18 Unknown History Hydroxyzine HCl [hydrOXYzine] 50 mg PO Q12H PRN 05/11/18 05/11/18 Unknown History Quetiapine Fumarate [SEROquel] 50 mg PO Q12H 05/11/18 05/11/18 Unknown History clonazePAM [Clonazepam] 1 mg PO Q12H PRN 05/11/18 05/11/18 Unknown History ED Physical Exam - General Limitations: Altered Mental Status General appearance: lethargic - Head Head exam: Present: atraumatic, normocephalic - Eye Eye exam: Present: normal appearance - ENT ENT exam: Present: mucous membranes dry - Neck Neck exam: Present: normal inspection - Respiratory Respiratory exam: Present: normal lung sounds bilaterally. Absent: respiratory distress - Cardiovascular Cardiovascular Exam: Present: regular rate, normal rhythm - GI/Abdominal GI/Abdominal exam: Present: soft, tenderness (mild diffuse). Absent: distended - Extremities Exam Extremities exam: Present: other (2+ edema to RUE; small healing ulcer to right lower leg) - Neurological Exam Neurological exam: Present: alert, altered (oriented to self), other (moves all extremities; does not follow commands completely, unable to obtain NIH scale) - Psychiatric Psychiatric exam: Present: normal affect, normal mood - Skin Skin exam: Present: warm, dry, intact, normal color ED Course Vital Signs 05/11/18 05/11/18 05/11/18 09:34 11:00 11:04 Temperature 98.0 F 98.2 F Pulse Rate 86 89 89 Respiratory 19 11 L 15 Rate Blood Pressure 81/54 74/42 Blood Pressure 74/42 [Right] O2 Sat by Pulse 100 96 96 Oximetry 05/11/18 05/11/18 05/11/18 11:05 11:46 12:00 Temperature Pulse Rate 84 83 Respiratory 15 11 L 11 L Rate Blood Pressure 70/45 80/50 Blood Pressure [Right] O2 Sat by Pulse 96 96 95 Oximetry 05/11/18 05/11/18 05/11/18 12:30 13:00 13:46 Temperature Pulse Rate 85 83 81 Respiratory 12 12 11 L Rate Blood Pressure 85/52 76/46 73/47 Blood Pressure [Right] O2 Sat by Pulse 99 98 93 Oximetry 05/11/18 05/11/18 14:00 14:16 Temperature Pulse Rate 84 84 Respiratory 16 16 Rate Blood Pressure 86/48 86/48 Blood Pressure 86/48 [Right] O2 Sat by Pulse 96 96 Oximetry - Reevaluation(s) Reevaluation #1: 05/11/18 10:38 Spoke w/ pt's , Chino Ocasio, over the phone. States when he saw her this morning, pt was totally unresponsive. states pt usually gets like this when she misses dialysis. States at baseline she is usually alert and conversational. - Consultations Consultation #1: 05/11/18 14:59 Spoke w/ PATSY D[facility] w/ [facility]. Does not recommend heparin gtt for elevated trop at this time. - Central Line Placement Right Femoral Consent Obtained: emergent situation Time Out Performed: Yes Patient Placed on Monitor/Pulse Ox: Yes Prep: mask, gown, gloves Central Line Prep: Chlorhexidine scrub Local Anesthesia Used: Lidocaine 1% Amount of Anesthesia Used (mls): 3 Ultrasound Used for Placement: No Central Line Lumen Inserted: triple Bloods Obtained for Lab: No Central Line Position: good blood return, all ports aspirated, flus, sutured in place with nyl Patient Tolerated Procedure: well Complications: none - Lab Data Result diagrams: 05/11/18 10:38 05/11/18 10:38 Lab Results 05/11/18 05/11/18 05/11/18 Range/Units 10:38 10:38 10:38 WBC 7.1 (4.5-11.0) K/mm3 RBC 3.36 L (3.65-5.03) M/mm3 Hgb 8.2 L (10.1-14.3) gm/dl Hct 26.0 L (30.3-42.9) % MCV 78 L (79-97) fl MCH 24 L (28-32) pg MCHC 31 (30-34) % RDW 23.0 H (13.2-15.2) % Plt Count 246 (140-440) K/mm3 Add Manual Diff Complete Total Counted 100 Seg Neuts % (Manual) 95.0 H (40.0-70.0) % Band Neutrophils % 0 % Lymphocytes % (Manual) 3.0 L (13.4-35.0) % Reactive Lymphs % (Man) 0 % Monocytes % (Manual) 2.0 (0.0-7.3) % Eosinophils % (Manual) 0 (0.0-4.3) % Basophils % (Manual) 0 (0.0-1.8) % Metamyelocytes % 0 % Myelocytes % 0 % Promyelocytes % 0 % Blast Cells % 0 % Nucleated RBC % Not Reportable Seg Neutrophils # Man 6.7 (1.8-7.7) K/mm3 Band Neutrophils # 0.0 K/mm3 Lymphocytes # (Manual) 0.2 L (1.2-5.4) K/mm3 Abs React Lymphs (Man) 0.0 K/mm3 Monocytes # (Manual) 0.1 (0.0-0.8) K/mm3 Eosinophils # (Manual) 0.0 (0.0-0.4) K/mm3 Basophils # (Manual) 0.0 (0.0-0.1) K/mm3 Metamyelocytes # 0.0 K/mm3 Myelocytes # 0.0 K/mm3 Promyelocytes # 0.0 K/mm3 Blast Cells # 0.0 K/mm3 WBC Morphology Not Reportable Hypersegmented Neuts Not Reportable Hyposegmented Neuts Not Reportable Hypogranular Neuts Not Reportable Smudge Cells Not Reportable Toxic Granulation Not Reportable Toxic Vacuolation Not Reportable Dohle Bodies Not Reportable Pelger-Huet Anomaly Not Reportable Shazia Rods Not Reportable Platelet Estimate Consistent w auto Clumped Platelets Not Reportable Plt Clumps, EDTA Not Reportable Large Platelets Not Reportable Giant Platelets Not Reportable Platelet Satelliting Not Reportable Plt Morphology Comment Not Reportable RBC Morphology Not Reportable Dimorphic RBCs Not Reportable Polychromasia Not Reportable Hypochromasia 1+ Poikilocytosis 2+ Anisocytosis 2+ Microcytosis Not Reportable Macrocytosis Not Reportable Spherocytes Not Reportable Pappenheimer Bodies Not Reportable Sickle Cells Not Reportable Target Cells Few Tear Drop Cells 1+ Ovalocytes 2+ Helmet Cells Not Reportable Santoro-Muniz Bodies Not Reportable [place] Rings Not Reportable Crystal Cells Not Reportable Bite Cells Not Reportable Crenated Cell Not Reportable Elliptocytes 1+ Acanthocytes (Spur) Not Reportable Rouleaux Not Reportable Hemoglobin C Crystals Not Reportable Schistocytes Not Reportable Malaria parasites Not Reportable Alfredito Bodies Not Reportable Hem Pathologist Commnt No PT 16.8 H (12.2-14.9) Sec. INR 1.32 H (0.87-1.13) APTT 25.6 (24.2-36.6) Sec. Sodium 136 L (137-145) mmol/L Potassium 5.3 H (3.6-5.0) mmol/L Chloride 93.0 L (98-107) mmol/L Carbon Dioxide 25 (22-30) mmol/L Anion Gap 23 mmol/L BUN 41 H (7-17) mg/dL Creatinine 6.3 H (0.7-1.2) mg/dL Estimated GFR 8 ml/min BUN/Creatinine Ratio 7 % Glucose 101 H (65-100) mg/dL Lactic Acid (0.7-2.0) mmol/L Calcium 9.1 (8.4-10.2) mg/dL Total Bilirubin 0.40 (0.1-1.2) mg/dL AST 16 (5-40) units/L ALT 6 L (7-56) units/L Alkaline Phosphatase 74 (35-129) units/L Troponin T 1.360 H* (0.00-0.029) ng/mL NT-Pro-B Natriuret Pep > 45067 H (0-900) pg/mL Total Protein 6.6 (6.3-8.2) g/dL Albumin 3.0 L (3.9-5) g/dL Albumin/Globulin Ratio 0.8 % Triglycerides 182 H (2-149) mg/dL Cholesterol 102 (50-199) mg/dL LDL Cholesterol Direct 44 L (50-130) mg/dL HDL Cholesterol 26 L (40-59) mg/dL Cholesterol/HDL Ratio 3.92 % Urine Color (Yellow) Urine Turbidity (Clear) Urine pH (5.0-7.0) Ur Specific [place] (1.003-1.030) Urine Protein (Negative) mg/dL Urine Glucose (UA) (Negative) mg/dL Urine Ketones (Negative) mg/dL Urine Blood (Negative) Urine Nitrite (Negative) Urine Bilirubin (Negative) Urine Urobilinogen (<2.0) mg/dL Ur Leukocyte Esterase (Negative) Urine WBC (Auto) (0.0-6.0) /HPF Urine RBC (Auto) (0.0-6.0) /HPF Urine Bacteria (Auto) (Negative) /HPF Urine WBC Clumps /HPF 05/11/18 05/11/18 Range/Units 11:47 12:03 WBC (4.5-11.0) K/mm3 RBC (3.65-5.03) M/mm3 Hgb (10.1-14.3) gm/dl Hct (30.3-42.9) % MCV (79-97) fl MCH (28-32) pg MCHC (30-34) % RDW (13.2-15.2) % Plt Count (140-440) K/mm3 Add Manual Diff Total Counted Seg Neuts % (Manual) (40.0-70.0) % Band Neutrophils % % Lymphocytes % (Manual) (13.4-35.0) % Reactive Lymphs % (Man) % Monocytes % (Manual) (0.0-7.3) % Eosinophils % (Manual) (0.0-4.3) % Basophils % (Manual) (0.0-1.8) % Metamyelocytes % % Myelocytes % % Promyelocytes % % Blast Cells % % Nucleated RBC % Seg Neutrophils # Man (1.8-7.7) K/mm3 Band Neutrophils # K/mm3 Lymphocytes # (Manual) (1.2-5.4) K/mm3 Abs React Lymphs (Man) K/mm3 Monocytes # (Manual) (0.0-0.8) K/mm3 Eosinophils # (Manual) (0.0-0.4) K/mm3 Basophils # (Manual) (0.0-0.1) K/mm3 Metamyelocytes # K/mm3 Myelocytes # K/mm3 Promyelocytes # K/mm3 Blast Cells # K/mm3 WBC Morphology Hypersegmented Neuts Hyposegmented Neuts Hypogranular Neuts Smudge Cells Toxic Granulation Toxic Vacuolation Dohle Bodies Pelger-Huet Anomaly Shazia Rods Platelet Estimate Clumped Platelets Plt Clumps, EDTA Large Platelets Giant Platelets Platelet Satelliting Plt Morphology Comment RBC Morphology Dimorphic RBCs Polychromasia Hypochromasia Poikilocytosis Anisocytosis Microcytosis Macrocytosis Spherocytes Pappenheimer Bodies Sickle Cells Target Cells Tear Drop Cells Ovalocytes Helmet Cells Santoro-Muniz Bodies [place] Rings Crystal Cells Bite Cells Crenated Cell Elliptocytes Acanthocytes (Spur) Rouleaux Hemoglobin C Crystals Schistocytes Malaria parasites Alfredito Bodies Hem Pathologist Commnt PT (12.2-14.9) Sec. INR (0.87-1.13) APTT (24.2-36.6) Sec. Sodium (137-145) mmol/L Potassium (3.6-5.0) mmol/L Chloride (98-107) mmol/L Carbon Dioxide (22-30) mmol/L Anion Gap mmol/L BUN (7-17) mg/dL Creatinine (0.7-1.2) mg/dL Estimated GFR ml/min BUN/Creatinine Ratio % Glucose (65-100) mg/dL Lactic Acid 2.30 H* (0.7-2.0) mmol/L Calcium (8.4-10.2) mg/dL Total Bilirubin (0.1-1.2) mg/dL AST (5-40) units/L ALT (7-56) units/L Alkaline Phosphatase (35-129) units/L Troponin T (0.00-0.029) ng/mL NT-Pro-B Natriuret Pep (0-900) pg/mL Total Protein (6.3-8.2) g/dL Albumin (3.9-5) g/dL Albumin/Globulin Ratio % Triglycerides (2-149) mg/dL Cholesterol (50-199) mg/dL LDL Cholesterol Direct (50-130) mg/dL HDL Cholesterol (40-59) mg/dL Cholesterol/HDL Ratio % Urine Color Yellow (Yellow) Urine Turbidity Turbid (Clear) Urine pH 7.0 (5.0-7.0) Ur Specific [place] 1.012 (1.003-1.030) Urine Protein 100 mg/dl (Negative) mg/dL Urine Glucose (UA) Neg (Negative) mg/dL Urine Ketones Neg (Negative) mg/dL Urine Blood Mod (Negative) Urine Nitrite Neg (Negative) Urine Bilirubin Neg (Negative) Urine Urobilinogen < 2.0 (<2.0) mg/dL Ur Leukocyte Esterase Mod (Negative) Urine WBC (Auto) > 182.0 H (0.0-6.0) /HPF Urine RBC (Auto) 170.0 (0.0-6.0) /HPF Urine Bacteria (Auto) 4+ (Negative) /HPF Urine WBC Clumps 3+ /HPF - EKG Data -: EKG Interpreted by Me EKG shows normal: sinus rhythm, axis Rate: normal When compared to previous EKG there are: no significant change (compared to 04/15/18) Interpretation: other (RBBB w/ mult PVCs) - Radiology Data Radiology results: report reviewed, image reviewed - Medical Decision Making 62-year-old female presented rehabilitation facility with hypotension and altered mental status. Patient did miss one scheduled dialysis, however patient is not in fluid overload and potassium is only minimally elevated at 5.3. Aggressive initial IV fluid administration via sepsis protocol was initially held due to history of ESRD and congestive heart failure. Patient did receive 30/kg bolus of normal saline, however, patient continued to be hypotensive, so central line was placed patient was initiated on Levophed. Patient had a lactic acid of 2.3, with evidence of UTI on UA. Zosyn was given, blood cultures and urine cultures also sent. Patient also had elevated troponin, likely due to renal insufficiency. Spoke with cardiology PA, does not recommend heparin gtt at this time. CT head showed areas of acute/subacute infarct and right parietal region. Patient is not a candidate for TPA. Will admit to Dr Moreno, hospitalist. - Differential Diagnosis hyperkalemia, sepsis, pulm edema, CVA Critical Care Time: Yes Critical care time in (mins) excluding proc time.: 60 Critical care attestation.: If time is entered above; I have spent that time in minutes in the direct care of this critically ill patient, excluding procedure time. Critical Care Time: 60 minutes ED Disposition Clinical Impression: Hypotension, Sepsis, UTI (urinary tract infection), CVA (cerebral vascular accident), Elevated troponin Disposition: [id number] OP ADMIT IP TO THIS HOSP Is pt being admited?: Yes Condition: Critical Time of Disposition: 13:02
--- NOTE | 2018-05-11 10:45 | XRay Report ---
AP CHEST: HISTORY: Altered mental status Compared to 04/15/18. Mild cardiomegaly, mild central pulmonary venous congestion and trace bilateral pleural effusions are suspected. No evidence for pneumonia or pneumothorax. The bony structures are demineralized but grossly intact. Chronic injury to the right humeral head is unchanged. IMPRESSION: Mild CHF. These findings appear slightly improved since 04/15/18 exam.
[2018-05-11 11:02] LABS: Hemoglobin 8.2 gm/dl (10.1-14.3); Mean Corpuscular HGB Conc 31 % (30-34); Mean Corpuscular Volume 78 fl (79-97); Platelet Count 246 K/mm3 (140-440); Red Blood Count 3.36 M/mm3 (3.65-5.03)
[2018-05-11 11:12] LABS: INR 1.32 (0.87-1.13)
[2018-05-11 11:14] LABS: Partial Thromboplastin Time 25.6 Sec. (24.2-36.6)
[2018-05-11 11:38] LABS: Alanine Aminotransferase 6 units/L (7-56); BUN/Creatinine Ratio 7; Blood Urea Nitrogen 41 mg/dL (7-17); Calcium 9.1 mg/dL (8.4-10.2); Hemolysis Index 11
[2018-05-11 12:11] LABS: Basophils % (Manual) 0 % (0.0-1.8); Eosinophils % (Manual) 0 % (0.0-4.3); Total Cells Counted 100
[2018-05-11 12:12] LABS: Anisocytosis 2+; Hypochromasia 1+; Poikilocytosis 2+
[2018-05-11 12:13] LABS: Ovalocytes 2+; Target Cells Few; Tear Drop Cells 1+
[2018-05-11 12:14] LABS: Platelet Estimate Consistent w Auto
[2018-05-11 12:25] LABS: Bacteria,Urine 4+ /HPF (Negative); Bilirubin,Urine NEG (Negative); Blood,Urine MOD (Negative); Color,Urine Yellow (Yellow); Urobilinogen,Urine < 2.0 mg/dL (<2.0)
[2018-05-11 12:25] LABS: Chol/HDL Ratio 3.92 %; HDL Cholesterol 26 mg/dL (40-59); LDL Cholesterol,Direct 44 mg/dL (50-130)
[2018-05-11 12:26] LABS: WBC,Urine > 182.0 /HPF (0.0-6.0)
--- NOTE | 2018-05-11 12:46 | Cat Scan Report ---
CT HEAD WITHOUT CONTRAST: HISTORY: Altered mental status. TECHNIQUE: Sequential 2.5mm CT images. COMPARISON: 04/15/18. FINDINGS: Cerebral Parenchyma: A relatively small area of sulcal effacement and hypoattenuation has developed in the right parietal lobe measuring 3.4 x 1.5 cm in axial plane on image 47. This has the appearance of an acute or subacute ischemic infarct on noncontrast CT. This is new since the previous exam. Mild diffuse volume loss and mild nonspecific chronic white matter changes are stable. Cerebellum: Within normal limits. Brainstem: Within normal limits. Ventricles: Normal. Sella: Normal. Extra-axial spaces: Normal. Basal Cisterns: Normal. Intracranial Hemorrhage: None. Midline Shift: None. Calvarium: Normal. Sinuses: Trace fluid is noted in the right maxillary sinus. The remaining sinuses are adequately aerated. Mastoid Air Cells: Normal. Visualized Orbits: Normal. IMPRESSION: Acute to subacute ischemic insult is suspected in the right parietal lobe as described above. Volume loss. Nonspecific chronic white matter changes. These findings were discussed with Dr. Mosher in the emergency department at 1242 hrs.
--- NOTE | 2018-05-11 14:31 | History and Physical Report ---
History of Present Illness Chief complaint: confused History of present illness: 62 YO Female [facility] Facility Resident with HTN, CHF, Right Calf DVT, GERD, ESRD on HD (T,R,Sa), COPD, Asthma, Chronic RLE DVT not on anticoagulation, OA, Seizure disorder, DM presents to ED for evaluation. Pt confused and unable to provide history. Pt history taken from ED staff, and EMS. As per staff, the patient was found to be confused today by her . EMS notified, and upon arrival the patient was encephalopathic. Pt transported to [facility] for further care and evaluation. Pt seen and evaluated in ED and found to have CVA, NSTEMI, Encephalopathy, UTI, ESRD, as well as hypotensive with systolic BP in the 80's secondary to SIRS . Nephrology consulted in ED for dialysis. Cardiology consulted in ED. No reports of fever, chills, CP, Palpitations, hemoptysis, BRBPR, Productive cough, trauma, or recent ill contacts. Past History Past Medical History: arthritis, ESRD, GERD, heart failure, hypertension Past Surgical History: cholecystectomy, hysterectomy, Other (AV fistula) Social history: Family history: CAD, hypertension Medications and Allergies Allergies Allergy/AdvReac Type Severity Reaction Status Date / Time codeine Allergy Rash Verified 03/04/16 15:27 Sulfa (Sulfonamide Allergy Rash Verified 03/04/16 15:27 Antibiotics) Home Medications Medication Instructions Recorded Confirmed Last Taken Type Albuterol Sulfate [Ventolin HFA] 2 puff IH Q4H PRN 03/31/16 05/11/18 04/14/18 10:00 History Esomeprazole Magnesium [NexIUM] 40 mg PO QDAY #30 capsule. 03/30/18 05/11/18 04/14/18 10:00 Rx Gabapentin [Neurontin] 100 mg PO Q12HR capsule 05/01/18 05/11/18 Unknown Rx Sevelamer Carbonate [Renvela] 2,400 mg PO AC tablet 05/01/18 05/11/18 Unknown Rx levETIRAcetam [Keppra TAB] 500 mg PO BID tablet 05/01/18 05/11/18 Unknown Rx oxyCODONE /ACETAMINOPHEN [Percocet 1 tab PO Q6H PRN #30 tablet 05/01/18 05/11/18 Unknown Rx 5/325 mg] ALBUTEROL NEB's [Proventil] 2.5 mg IH Q6H PRN 05/11/18 05/11/18 Unknown History Acetaminophen [Tylenol] 650 mg PO Q4H PRN 05/11/18 05/11/18 Unknown History Acetaminophen [Tylenol] 650 mg PO Q4H PRN 05/11/18 05/11/18 Unknown History FLUoxetine [PROzac] 20 mg PO QDAY 05/11/18 05/11/18 Unknown History Ferrous Sulfate [Iron] 325 mg PO BID 05/11/18 05/11/18 Unknown History Hydroxyzine HCl [hydrOXYzine] 50 mg PO Q12H PRN 05/11/18 05/11/18 Unknown History Quetiapine Fumarate [SEROquel] 50 mg PO Q12H 05/11/18 05/11/18 Unknown History clonazePAM [Clonazepam] 1 mg PO Q12H PRN 05/11/18 05/11/18 Unknown History Active Meds: Active Medications Norepinephrine (Levophed Drip 4 Mg/Ns 250 Ml) 4 mg in 250 mls @ 7.5 mls/hr IV TITR DAVIN; Protocol Review of Systems ROS unobtainable: due to mental status Exam - Constitutional Vitals: Temp Pulse Resp BP Pulse Ox 98.2 F 81 13 86/48 100 05/11/18 11:04 05/11/18 14:00 05/11/18 14:00 05/11/18 14:00 05/11/18 14:00 General appearance: Present: mild distress, obese, disheveled - EENT Eyes: Present: miosis - Neck Neck: Present: supple, normal ROM - Respiratory Respiratory: bilateral: diminished - Cardiovascular Heart Sounds: Present: S1 & S2. Absent: rub, click - Extremities Extremities: pulses symmetrical, No edema Peripheral Pulses: abnormal - Integumentary Integumentary: Present: clear, dry, decreased turgor - Musculoskeletal Musculoskeletal: generalized weakness - Psychiatric Psychiatric: no appropriate mood/affect, no intact judgment & insight, no memory intact - Neurologic Neurologic: no CNII-XII intact, focal deficits, no moves all extremities, no gait normal Results - Labs CBC & Chem 7: 05/11/18 10:38 05/11/18 10:38 Labs: Abnormal lab results 05/11/18 05/11/18 05/11/18 Range/Units 10:38 10:38 10:38 RBC 3.36 L (3.65-5.03) M/mm3 Hgb 8.2 L (10.1-14.3) gm/dl Hct 26.0 L (30.3-42.9) % MCV 78 L (79-97) fl MCH 24 L (28-32) pg RDW 23.0 H (13.2-15.2) % Seg Neuts % (Manual) 95.0 H (40.0-70.0) % Lymphocytes % (Manual) 3.0 L (13.4-35.0) % Lymphocytes # (Manual) 0.2 L (1.2-5.4) K/mm3 PT 16.8 H (12.2-14.9) Sec. INR 1.32 H (0.87-1.13) Sodium 136 L (137-145) mmol/L Potassium 5.3 H (3.6-5.0) mmol/L Chloride 93.0 L (98-107) mmol/L BUN 41 H (7-17) mg/dL Creatinine 6.3 H (0.7-1.2) mg/dL Glucose 101 H (65-100) mg/dL Lactic Acid (0.7-2.0) mmol/L ALT 6 L (7-56) units/L Troponin T 1.360 H* (0.00-0.029) ng/mL NT-Pro-B Natriuret Pep > 67194 H (0-900) pg/mL Albumin 3.0 L (3.9-5) g/dL Triglycerides 182 H (2-149) mg/dL LDL Cholesterol Direct 44 L (50-130) mg/dL HDL Cholesterol 26 L (40-59) mg/dL Urine WBC (Auto) (0.0-6.0) /HPF 05/11/18 05/11/18 Range/Units 11:47 12:03 RBC (3.65-5.03) M/mm3 Hgb (10.1-14.3) gm/dl Hct (30.3-42.9) % MCV (79-97) fl MCH (28-32) pg RDW (13.2-15.2) % Seg Neuts % (Manual) (40.0-70.0) % Lymphocytes % (Manual) (13.4-35.0) % Lymphocytes # (Manual) (1.2-5.4) K/mm3 PT (12.2-14.9) Sec. INR (0.87-1.13) Sodium (137-145) mmol/L Potassium (3.6-5.0) mmol/L Chloride (98-107) mmol/L BUN (7-17) mg/dL Creatinine (0.7-1.2) mg/dL Glucose (65-100) mg/dL Lactic Acid 2.30 H* (0.7-2.0) mmol/L ALT (7-56) units/L Troponin T (0.00-0.029) ng/mL NT-Pro-B Natriuret Pep (0-900) pg/mL Albumin (3.9-5) g/dL Triglycerides (2-149) mg/dL LDL Cholesterol Direct (50-130) mg/dL HDL Cholesterol (40-59) mg/dL Urine WBC (Auto) > 182.0 H (0.0-6.0) /HPF Assessment and Plan - Patient Problems (1) CVA (cerebral vascular accident) Current Visit: Yes Status: Acute Qualifiers: Precerebral and cerebral artery: posterior cerebral artery Plan to address problem: Stroke Protocol: CT Head, MRI Brain, MRA brain, Echo, EEG, antiplatelet therapy, lipid panel, statin therapy, PT/OT/Speech Therapy, (2) NSTEMI (non-ST elevated myocardial infarction) Current Visit: Yes Status: Acute Plan to address problem: Admit to IMCU, supportive care, Cardiology consulted in ED, anticoagulation as per cardiology team, serial cardiac enzymes, ekg, supportive care. (3) End stage renal disease on dialysis Current Visit: Yes Status: Chronic Plan to address problem: nephrology consulted in ED, dialysis as per renal team, strict I/O, monitor uop q shift, avoid nephrotoxic agents. (4) CHF (congestive heart failure) Current Visit: No Status: Acute Qualifiers: Heart failure type: unspecified Heart failure chronicity: unspecified Qualified Code(s): I50.9 - Heart failure, unspecified Plan to address problem: Admit to IMCU, cardiology consulted in ED, supportive care, strict I/O, daily weight, afterload reduction, (5) SIRS (systemic inflammatory response syndrome) Current Visit: Yes Status: Acute Plan to address problem: Iv antibiotic therpay, supportive care, IVF resuscitation therapy as tolerated. (6) DVT prophylaxis Current Visit: No Status: Acute Plan to address problem: SCD to BLE while in bed
[2018-05-11] MEDS ORDERED: PROVENTIL IH PRN ×2 (14:34→18:28)
[2018-05-11] MEDS ORDERED: TYLENOL PO PRN ×2 (14:34→18:28)
[2018-05-11] MEDS ORDERED: PHENERGAN PR PRN (14:34)
[2018-05-11] MEDS ORDERED: REGLAN PO PRN (14:34)
[2018-05-11] MEDS ORDERED: ZOFRAN IV PRN (14:34)
[2018-05-11] MEDS ORDERED: DULCOLAX PR PRN (14:34)
[2018-05-11] MEDS ORDERED: MILK OF MAGNESIA PO PRN (14:34)
[2018-05-11] MEDS: LEVOPHED DRIP 4 MG/NS 250 ML 4 MG/250 ML BAG IV SCH ×2 (15:14→22:30)
--- NOTE | 2018-05-11 15:14 | Consultation ---
History of Present Illness Consult date: 05/11/18 Requesting physician: SAMI OROZCO Consult reason: elevated troponin History of present illness: The pt is a 62 yo female with a past medical history of MRSA bacteremia, mitral valve endocarditis, HTN, RLE DVT, GERD, ESRD on H(T,R,Sa), COPD with chronic hypoxic respiratory failure, Asthma, OA, Seizure disorder, DM type 2 and bipolar disorder who presents for evaluation of AMS. Pt confused and unable to provide h istory. Pt history taken from ED staff, and EMS. detention reports patient refused dialysis yesterday. As per staff, the patient was found to be confused today by her . EMS notified, and upon arrival the patient was noted to have AMS. Pt seen and evaluated in ED and found to have Encephalopathy, ESRD, hypotension with systolic BP in the 80's with lactic acidosis and suspected sepsis. Pt initiated on sepsis protocol, as well as vasopressor support. Head CT shows acute to subacute ischemic insult suspected in right parietal lobe. Cardiology has been consulted for elevated troponin level. Pt denies any chest pain. ECG with SR, RBBB, no acute ischemic changes. Of note, the patient was discharged from [facility] on 05/01/2018. During that hospitalization, she was found to have sepsis, MRSA bacteremia, and endocarditis of mitral valve, pneumonia. She was discharged to continue on vancomycin after dialysis with targets levels between 10-20 until 05/29/2018. TTE done 04/17/2018 showed EF 55-60%, RA severely dilated, mild to mod TR, trace MR, RV severely dilated, RV systolic function mod to severely reduced, severe pulm HTN with RVSP 67mmHg. Past History Past Medical History: other (as per HPI) Medications and Allergies Allergies Allergy/AdvReac Type Severity Reaction Status Date / Time codeine Allergy Rash Verified 03/04/16 15:27 Sulfa (Sulfonamide Allergy Rash Verified 03/04/16 15:27 Antibiotics) Home Medications Medication Instructions Recorded Confirmed Last Taken Type Albuterol Sulfate [Ventolin HFA] 2 puff IH Q4H PRN 03/31/16 05/11/18 04/14/18 10:00 History Esomeprazole Magnesium [NexIUM] 40 mg PO QDAY #30 capsule. 03/30/18 05/11/18 04/14/18 10:00 Rx Gabapentin [Neurontin] 100 mg PO Q12HR capsule 05/01/18 05/11/18 Unknown Rx Sevelamer Carbonate [Renvela] 2,400 mg PO AC tablet 05/01/18 05/11/18 Unknown Rx levETIRAcetam [Keppra TAB] 500 mg PO BID tablet 05/01/18 05/11/18 Unknown Rx oxyCODONE /ACETAMINOPHEN [Percocet 1 tab PO Q6H PRN #30 tablet 05/01/18 05/11/18 Unknown Rx 5/325 mg] ALBUTEROL NEB's [Proventil] 2.5 mg IH Q6H PRN 05/11/18 05/11/18 Unknown History Acetaminophen [Tylenol] 650 mg PO Q4H PRN 05/11/18 05/11/18 Unknown History Acetaminophen [Tylenol] 650 mg PO Q4H PRN 05/11/18 05/11/18 Unknown History FLUoxetine [PROzac] 20 mg PO QDAY 05/11/18 05/11/18 Unknown History Ferrous Sulfate [Iron] 325 mg PO BID 05/11/18 05/11/18 Unknown History Hydroxyzine HCl [hydrOXYzine] 50 mg PO Q12H PRN 05/11/18 05/11/18 Unknown History Quetiapine Fumarate [SEROquel] 50 mg PO Q12H 05/11/18 05/11/18 Unknown History clonazePAM [Clonazepam] 1 mg PO Q12H PRN 05/11/18 05/11/18 Unknown History Active Meds: Active Medications Acetaminophen (Tylenol) 650 mg PO Q4H PRN PRN Reason: Pain, Mild (1-3) Albuterol (Proventil) 2.5 mg IH Q3HRT PRN PRN Reason: Shortness Of Breath Aspirin (Aspirin) 325 mg PO QDAY DAVIN Atorvastatin Calcium (Lipitor) 40 mg PO QHS DAVIN Bisacodyl (Dulcolax) 10 mg GA QDAY PRN PRN Reason: Constipation Norepinephrine (Levophed Drip 4 Mg/Ns 250 Ml) 4 mg in 250 mls @ 7.5 mls/hr IV TITR DAVIN; Protocol Magnesium Hydroxide (Milk Of Magnesia) 30 ml PO Q4H PRN PRN Reason: Constipation Metoclopramide HCl (Reglan) 10 mg PO Q6H PRN PRN Reason: Nausea And Vomiting Ondansetron HCl (Zofran) 4 mg IV Q8H PRN PRN Reason: Nausea And Vomiting Promethazine HCl (Phenergan) 25 mg GA Q6H PRN PRN Reason: Nausea And Vomiting Sodium Chloride (Sodium Chloride Flush Syringe 10 Ml) 10 ml INJ PRN PRN PRN Reason: LINE FLUSH Review of Systems ROS unobtainable: due to mental status Cardiovascular: no chest pain Physical Examination Vital Signs Temp Pulse Resp BP Pulse Ox 98.0 F 86 19 81/54 100 05/11/18 09:34 05/11/18 09:34 05/11/18 09:34 05/11/18 09:34 05/11/18 09:34 General appearance: other (lethargic) Cardiac: Positive: Reg Rate and Rhythm, S1/S2, Systolic Murmur Lungs: Positive: Decreased Breath Sounds Neuro: Positive: Other (unable to assess) Musculoskeletal: No Pain Extremities: Absent: edema Results 05/11/18 10:38 05/11/18 10:38 Cardiac Enzymes 05/11/18 Range/Units 10:38 AST 16 (5-40) units/L Coagulation 05/11/18 Range/Units 10:38 PT 16.8 H (12.2-14.9) Sec. INR 1.32 H (0.87-1.13) APTT 25.6 (24.2-36.6) Sec. Lipids 05/11/18 Range/Units 10:38 Triglycerides 182 H (2-149) mg/dL Cholesterol 102 (50-199) mg/dL HDL Cholesterol 26 L (40-59) mg/dL Cholesterol/HDL Ratio 3.92 % CBC 05/11/18 Range/Units 10:38 WBC 7.1 (4.5-11.0) K/mm3 RBC 3.36 L (3.65-5.03) M/mm3 Hgb 8.2 L (10.1-14.3) gm/dl Hct 26.0 L (30.3-42.9) % Plt Count 246 (140-440) K/mm3 Comprehensive Metabolic Panel 05/11/18 Range/Units 10:38 Sodium 136 L (137-145) mmol/L Potassium 5.3 H (3.6-5.0) mmol/L Chloride 93.0 L (98-107) mmol/L Carbon Dioxide 25 (22-30) mmol/L BUN 41 H (7-17) mg/dL Creatinine 6.3 H (0.7-1.2) mg/dL Glucose 101 H (65-100) mg/dL Calcium 9.1 (8.4-10.2) mg/dL AST 16 (5-40) units/L ALT 6 L (7-56) units/L Alkaline Phosphatase 74 (35-129) units/L Total Protein 6.6 (6.3-8.2) g/dL Albumin 3.0 L (3.9-5) g/dL - Imaging and Cardiology Echo: report reviewed (TTE done 04/17/2018 showed EF 55-60%, RA severely dil ated, mild to mod TR, trace MR, RV severely dilated, RV systolic function mod to severely reduced, severe pulm HTN with RVSP 67mmHg. SASHA 04/20/2018: endocarditis involving the posterior mitral valve leaflet, atrial septal defect with severe right heart enlargement and severe right ventricular dysfunction, severe pulmonary hypertension) EKG: report reviewed, image reviewed EKG interpretations - Telemetry EKG Rhythm: Sinus Rhythm - EKG Sinus rhythms and dysrhythmias: sinus rhythm AV and intraventricular conduction: right bundle branch block Assessment and Plan Head CT shows acute to subacute ischemic insult suspected in right parietal lobe. Cardiology has been consulted for elevated troponin level. Pt denies any chest pain. ECG with SR, RBBB, no acute ischemic changes. Troponin elevation likely c/w NSTEMI type II. Cont to trend troponins and repeat ECG in AM. Do not recommend heparinization at this time in setting of CVA and recommend neurology consultation per primary. Wean vasopressors as tolerated. The patient has been seen in conjunction with Dr. Murphy who agrees with the assessment and plan of care. - Patient Problems (1) CVA (cerebral vascular accident) Current Visit: Yes Status: Acute (2) NSTEMI (non-ST elevated myocardial infarction) Current Visit: Yes Status: Acute (3) Hypotension Current Visit: Yes Status: Acute (4) Sepsis Current Visit: Yes Status: Suspected Qualifiers: (5) UTI (urinary tract infection) Current Visit: Yes Status: Acute Qualifiers: (6) Endocarditis of mitral valve Current Visit: Yes Status: Chronic (7) MRSA bacteremia Current Visit: Yes Status: Chronic (8) ASD (atrial septal defect) Current Visit: Yes Status: Chronic (9) End stage renal disease on dialysis Current Visit: Yes Status: Chronic (10) COPD (chronic obstructive pulmonary disease) Current Visit: Yes Status: Chronic (11) Moderate to severe pulmonary hypertension Current Visit: Yes Status: Chronic (12) History of DVT (deep vein thrombosis) Current Visit: Yes Status: Chronic (13) Anemia Current Visit: Yes Status: Acute (14) Psychiatric disorder Current Visit: Yes Status: Chronic
[2018-05-11 17:21] LABS: Creatine Kinase MB 12.3 ng/mL (0.0-4.0)
[2018-05-11] MEDS ORDERED: ATIVAN ONE (18:19)
[2018-05-11] MEDS ORDERED: VANCOMYCIN 1,500 MG in NACL 0.9% 500 ML 500 ML IV ONE (18:26)
[2018-05-11] MEDS ORDERED: NON-FORMULARY (Hydroxyzine Hcl [Hydroxyzine] 50 MG) PO PRN (18:28)
[2018-05-11] MEDS ORDERED: ATIVAN IV ONE (18:28)
[2018-05-11] MEDS ORDERED: NON-FORMULARY (Clonazepam [Clonazepam] 1 MG) PO PRN (18:28)
[2018-05-11] MEDS ORDERED: NON-FORMULARY (Quetiapine Fumarate [Seroquel] 50 MG) PO SCH (18:30)
[2018-05-11] MEDS ORDERED: KIONEX PO ONE (20:38)
[2018-05-11] MEDS ORDERED: D50W (25GM) Vial IV ONE (20:38)
--- NOTE | 2018-05-11 20:44 | Magnetic Resonance Report ---
FINAL REPORT PROCEDURE: MRI brain without contrast. TECHNIQUE: Magnetic resonance imaging of the brain was performed without contrast material. HISTORY: Stroke. COMPARISON: CT head 04/15/2018. FINDINGS: The ventricles are normal in size. There is scattered signal abnormality within the deep white matter and subcortical white matter of both cerebral hemispheres. This is best seen on the FLAIR weighted i maging. This probably represents chronic ischemic white matter disease. A demyelinating disease proce ss is possible however. Clinical correlation is recommended. There are no mass lesions. There is no i ntracranial hemorrhage. There is a very tiny linear focus of restricted diffusion within the central portion of the right cerebellar hemisphere. There is some restricted diffusion within the cortex of t he right parietal lobe. There is a small focus of restricted diffusion in the deep white matter of th e right frontal lobe. There is a small focus of restricted diffusion in the motor strip of the right frontal lobe. There is some focal restricted diffusion in the cortex of the left frontal lobe lateral ly. There is also a tiny focus of restricted diffusion in the motor strip of the left frontal lobe. T hese findings are consistent with acute or subacute infarcts. The multiple locations could be seconda ry to a vasculitis or possibly hypotension as the underlying causes. There is a small amount of fluid in both mastoid processes. The paranasal sinuses are grossly clear. IMPRESSION: Small multifocal areas of acute or subacute infarct as described. No evidence of intracranial hemorrh age. White matter disease. Mild mastoiditis.
--- NOTE | 2018-05-11 20:50 | Magnetic Resonance Report ---
FINAL REPORT PROCEDURE: Magnetic resonance angiogram of the brain without contrast. TECHNIQUE: Axial 3-D [id number] MR angiography of the [place] and brain was performed. The source images were reconstructed in various views using maximum intensity projection. HISTORY: Stroke. COMPARISON: No prior studies are available for comparison. FINDINGS: Both distal internal carotid arteries are widely patent. Both anterior cerebral arteries are patent. The anterior communicating artery is not visible. Both middle cerebral arteries are patent. Both post erior communicating arteries are patent. The left posterior cerebral artery has a origin from t he left internal carotid artery. The distal vertebral arteries were not scanned. The basilar artery i s patent. The anterior inferior cerebellar arteries are not visible. Both superior cerebellar and bot h posterior cerebral arteries are patent. There are no signs of aneurysm disease. There is no evidenc e of a vasculitis. IMPRESSION: No significant arterial abnormality identified.
[2018-05-11] MEDS: FEOSOL PO SCH (21:39)
[2018-05-11] MEDS: NEURONTIN PO SCH (21:39)
[2018-05-11] MEDS: KEPPRA PO SCH (21:39)
[2018-05-11] MEDS ORDERED: ATARAX PO PRN (22:00)
[2018-05-11] MEDS ORDERED: LEVOPHED DRIP 4 MG/NS 250 ML 4 MG/250 ML BAG IV ONE (22:27)
[2018-05-12 06:15] LABS: Calcium 9.2 mg/dL (8.4-10.2)
[2018-05-12] MEDS ORDERED: LEVOPHED DRIP 4 MG/NS 250 ML 4 MG/250 ML BAG IV ONE (06:44)
[2018-05-12] MEDS: RENVELA PO SCH ×3 (08:06→23:48)
[2018-05-12] MEDS ORDERED: NACL 0.9% 100 ML IV PRN (08:46)
--- NOTE | 2018-05-12 08:46 | Consultation ---
History of Present Illness - Reason for Consult Consult date: 05/12/18 end stage renal disease, hyperkalemia - History of Present Illness The patient is a 62 YO female with history significant for HTN, Polycystic kidney disease, ESRD on hemdialysis (TTS), Seizure disorder, Anxiety, Bipolar disorder, Chronic respiratory failure on home O2 and medical non-compliance who presented to the ED via EMS with AMS. Patient was not able to provide any history and information gathered from previous documentation and talking to the staff. Patient was treated for MRSA bacteremia and was discharged on 05/02/2018. On further evaluation she was found to have low BP, NSTEMI, Encephalopathy and CVA. K was 5.4. Nephrology was consulted for further evalaution. Past History Past Medical History: arthritis, ESRD, GERD, heart failure, hypertension Past Surgical History: cholecystectomy, hysterectomy, Other (AV fistula) Social history: Family history: CAD, hypertension Medications and Allergies Allergies Allergy/AdvReac Type Severity Reaction Status Date / Time codeine Allergy Rash Verified 03/04/16 15:27 Sulfa (Sulfonamide Allergy Rash Verified 03/04/16 15:27 Antibiotics) Home Medications Medication Instructions Recorded Confirmed Last Taken Type Albuterol Sulfate [Ventolin HFA] 2 puff IH Q4H PRN 03/31/16 05/11/18 04/14/18 10:00 History Esomeprazole Magnesium [NexIUM] 40 mg PO QDAY #30 capsule. 03/30/18 05/11/18 04/14/18 10:00 Rx Gabapentin [Neurontin] 100 mg PO Q12HR capsule 05/01/18 05/11/18 Unknown Rx Sevelamer Carbonate [Renvela] 2,400 mg PO AC tablet 05/01/18 05/11/18 Unknown Rx levETIRAcetam [Keppra TAB] 500 mg PO BID tablet 05/01/18 05/11/18 Unknown Rx oxyCODONE /ACETAMINOPHEN [Percocet 1 tab PO Q6H PRN #30 tablet 05/01/18 05/11/18 Unknown Rx 5/325 mg] ALBUTEROL NEB's [Proventil] 2.5 mg IH Q6H PRN 05/11/18 05/11/18 Unknown History Acetaminophen [Tylenol] 650 mg PO Q4H PRN 05/11/18 05/11/18 Unknown History Acetaminophen [Tylenol] 650 mg PO Q4H PRN 05/11/18 05/11/18 Unknown History FLUoxetine [PROzac] 20 mg PO QDAY 05/11/18 05/11/18 Unknown History Ferrous Sulfate [Iron] 325 mg PO BID 05/11/18 05/11/18 Unknown History Hydroxyzine HCl [hydrOXYzine] 50 mg PO Q12H PRN 05/11/18 05/11/18 Unknown History Quetiapine Fumarate [SEROquel] 50 mg PO Q12H 05/11/18 05/11/18 Unknown History clonazePAM [Clonazepam] 1 mg PO Q12H PRN 05/11/18 05/11/18 Unknown History Active Meds: Active Medications Acetaminophen (Tylenol) 650 mg PO Q4H PRN PRN Reason: Pain, Mild (1-3) Acetaminophen (Tylenol) 650 mg PO Q4H PRN PRN Reason: Fever >101 Albuterol (Proventil) 2.5 mg IH Q3HRT PRN PRN Reason: Shortness Of Breath Albuterol (Proventil) 2.5 mg IH Q6H PRN PRN Reason: Wheezing Aspirin (Aspirin) 325 mg PO QDAY [facility] Atorvastatin Calcium (Lipitor) 40 mg PO QHS [facility] Last Admin: 05/11/18 21:39 Dose: Not Given Documented by: Bisacodyl (Dulcolax) 10 mg [place] QDAY PRN PRN Reason: Constipation Clonazepam (Klonopin) 1 mg PO Q12H [facility] Last Admin: 05/12/18 08:06 Dose: Not Given Documented by: Ferrous Sulfate (Feosol) 325 mg PO BID [facility] Last Admin: 05/11/18 21:39 Dose: Not Given Documented by: Fluoxetine HCl (Prozac) 20 mg PO QDAY [facility] Gabapentin (Neurontin) 100 mg PO Q12HR [facility] Last Admin: 05/11/18 21:39 Dose: Not Given Documented by: Hydroxyzine HCl (Atarax) 50 mg PO Q12H PRN PRN Reason: Itching Norepinephrine (Levophed Drip 4 Mg/Ns 250 Ml) 4 mg in 250 mls @ 7.5 mls/hr IV TITR [facility]; Protocol Last Titration: 05/12/18 01:02 Dose: 8 mcg/min, 30 mls/hr Documented by: Levetiracetam (Keppra) 500 mg PO BID [facility] Last Admin: 05/11/18 21:39 Dose: Not Given Documented by: Magnesium Hydroxide (Milk Of Magnesia) 30 ml PO Q4H PRN PRN Reason: Constipation Metoclopramide HCl (Reglan) 10 mg PO Q6H PRN PRN Reason: Nausea And Vomiting Ondansetron HCl (Zofran) 4 mg IV Q8H PRN PRN Reason: Nausea And Vomiting Oxycodone/Acetaminophen (Percocet 5/325) 1 tab PO Q6H PRN PRN Reason: Pain, Moderate (4-6) Pantoprazole Sodium (Protonix) 40 mg IV QDAY [facility] Promethazine HCl (Phenergan) 25 mg [place] Q6H PRN PRN Reason: Nausea And Vomiting Quetiapine Fumarate (Seroquel) 50 mg PO Q12H [facility] Last Admin: 05/12/18 08:06 Dose: Not Given Documented by: Sevelamer Carbonate (Renvela) 2,400 mg PO AC [facility] Last Admin: 05/12/18 08:06 Dose: Not Given Documented by: Sodium Chloride (Sodium Chloride Flush Syringe 10 Ml) 10 ml IV PRN PRN PRN Reason: LINE FLUSH Review of Systems ROS unobtainable: due to mental status Exam - Vital Signs Vital signs: Vital Signs Temp Pulse Resp BP Pulse Ox 98.0 F 86 19 81/54 100 05/11/18 09:34 05/11/18 09:34 05/11/18 09:34 05/11/18 09:34 05/11/18 09:34 - General Appearance General appearance: well-developed, appears stated age, other (not in distress) EENT: ATNC (facial plethora noted), other Neck: Present: neck supple, trachea midline Respiratory: Clear to Ascultation Heart: regular, S1S2, no murmurs Gastrointestinal: Present: normoactive bowel sounds. Absent: tenderness, distended Integumentary: no rash, ulcer (right leg) Neurologic: other (stuporous, non-verbal, not following any command) Musculoskeletal: Present: other (bilateral UE edematous, left arm AVG) Results - Lab Results 05/13/18 04:39 05/13/18 04:39 Most recent lab results Calcium 9.2 mg/dL (8.4-10.2) 05/12/18 05:40 Assessment and Plan 1. ESRD: HD today. Her usual schedule is TTS. 2. Hyperkalemia: HD today. 3. Hypotension: On Levophed. 4. Volume overload: UF with HD as tolerated. 5. CVA. 6. H/o MRSA bacteremia: Vancomycin. 7. Encephalopathy.
--- NOTE | 2018-05-12 09:06 | Progress Note ---
Assessment and Plan Head CT shows acute to subacute ischemic insult suspected in right parietal lobe. Cardiology has been consulted for elevated troponin level. Pt denies any chest pain. ECG with SR, RBBB, no acute ischemic changes. Troponin elevation likely c/w NSTEMI type II. Do not recommend heparinization at this time in setting of CVA and recommend neurology consultation per primary. Wean vasopressors as tolerated. The patient has been seen in conjunction with Dr. Collazo who agrees with the assessment and plan of care. 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 (8) ASD (atrial septal defect) Current Visit: Yes Status: Chronic (9) End stage renal disease on dialysis Current Visit: Yes Status: Chronic (10) COPD (chronic obstructive pulmonary disease) Current Visit: Yes Status: Chronic (11) Moderate to severe pulmonary hypertension Current Visit: Yes Status: Chronic (12) History of DVT (deep vein thrombosis) Current Visit: Yes Status: Chronic (13) Anemia Current Visit: Yes Status: Acute (14) Psychiatric disorder Current Visit: Yes Status: Chronic Subjective Date of service: 05/12/18 Principal diagnosis: CVA Interval history: pt resting in bed, lethargic. levophed gtt infusing. Objective Last Vital Signs Temp 99.0 F 05/12/18 07:30 Pulse 90 05/12/18 09:00 Resp 15 05/12/18 09:00 BP 129/69 05/12/18 09:00 Pulse Ox 100 05/12/18 08:30 - Physical Examination General: Other (lethargic ) Neck: Positive: neck supple, trachea midline Cardiac: Positive: Reg Rate and Rhythm, S1/S2 Lungs: Positive: Decreased Breath Sounds Neuro: Positive: Other (lethargic) Musculoskeletal: No Pain Extremities: Absent: edema - Labs and Meds Cardiac Enzymes 05/11/18 05/11/18 Range/Units 10:38 16:46 AST 16 (5-40) units/L CK-MB (CK-2) 12.3 H (0.0-4.0) ng/mL Coagulation 05/11/18 Range/Units 10:38 PT 16.8 H (12.2-14.9) Sec. INR 1.32 H (0.87-1.13) APTT 25.6 (24.2-36.6) Sec. Lipids 05/11/18 Range/Units 10:38 Triglycerides 182 H (2-149) mg/dL Cholesterol 102 (50-199) mg/dL HDL Cholesterol 26 L (40-59) mg/dL Cholesterol/HDL Ratio 3.92 % CBC 05/11/18 Range/Units 10:38 WBC 7.1 (4.5-11.0) K/mm3 RBC 3.36 L (3.65-5.03) M/mm3 Hgb 8.2 L (10.1-14.3) gm/dl Hct 26.0 L (30.3-42.9) % Plt Count 246 (140-440) K/mm3 Comprehensive Metabolic Panel 05/11/18 05/12/18 Range/Units 10:38 05:40 Sodium 136 L 139 (137-145) mmol/L Potassium 5.3 H 5.4 H (3.6-5.0) mmol/L Chloride 93.0 L 95.9 L (98-107) mmol/L Carbon Dioxide 25 22 (22-30) mmol/L BUN 41 H 43 H (7-17) mg/dL Creatinine 6.3 H 6.3 H (0.7-1.2) mg/dL Glucose 101 H 87 (65-100) mg/dL Calcium 9.1 9.2 (8.4-10.2) mg/dL AST 16 (5-40) units/L ALT 6 L (7-56) units/L Alkaline Phosphatase 74 (35-129) units/L Total Protein 6.6 (6.3-8.2) g/dL Albumin 3.0 L (3.9-5) g/dL - Imaging and Cardiology EKG: report reviewed, image reviewed Echo: report reviewed (TTE done 04/17/2018 showed EF 55-60%, RA severely dilated, mild to mod TR, trace MR, RV severely dilated, RV systolic function mod to severely reduced, severe pulm HTN with RVSP 67mmHg. SASHA 04/20/2018: endocarditis involving the posterior mitral valve leaflet, atrial septal defect with severe right heart enlargement and severe right ventricular dysfunction, severe pulmonary hypertension) - Telemetry EKG Rhythm: Sinus Rhythm - EKG Sinus rhythms and dysrhythmias: sinus rhythm AV and intraventricular conduction: right bundle branch block
[2018-05-12] MEDS ORDERED: NON-FORMULARY (Esomeprazole Magnesium [Nexium] 40 MG) PO SCH (10:00)
[2018-05-12] MEDS: SODIUM CHLORIDE FLUSH SYRINGE 10 ML IV PRN (13:00)
[2018-05-12] MEDS ORDERED: PROTONIX IV ONE (13:01)
[2018-05-12] MEDS ORDERED: NEURONTIN ONE (13:03)
[2018-05-12] MEDS ORDERED: ASPIRIN ONE (13:03)
[2018-05-12] MEDS: ASPIRIN PO SCH (13:10)
[2018-05-12] MEDS: PROTONIX IV SCH (13:10)
[2018-05-12] MEDS: NEURONTIN PO SCH ×2 (13:10→23:50)
--- NOTE | 2018-05-12 13:45 | Progress Note ---
Assessment and Plan Assessment and plan: CVA. Head CT shows acute to subacute ischemic insult suspected in right parietal lobe. Follow-up MRI/MRA, echocardiogram. Continue antiplatelet therapy and follow-up lipid panel. PT/OT/ST NSTEMI type II. Patient with troponin elevation consistent with type II [place]. Cardiology following. ECG with SR, RBBB, no acute ischemic changes. Septic shock. Etiology secondary to UTI. However, urine and blood cultures are negative. Continue IV antibiotic therapy. Wean pressors to maintain map greater than 65. Follow cultures. ESRD. Continue hemodialysis per nephrology. History of chronic right lower extremity DVT. PTSD. Hyperkalemia. Patient had hemodialysis today. Volume overload. UF with Hemodialysis today. History of MRSA bacteremia. Suicidal ideation. Consult psychiatry. History Interval history: Upon my attempts to interview the patient, she shouted "I want to , leave me alone". Patient refusing interview and examination. Hospitalist Physical - Physical exam Narrative exam: Patient refused examination. - Constitutional Vitals: Temp Pulse Resp BP Pulse Ox 99.0 F 89 20 93/58 95 05/12/18 07:30 05/12/18 13:16 05/12/18 13:16 05/12/18 13:16 05/12/18 13:16 General appearance: Present: mild distress, obese, disheveled Results - Labs CBC & Chem 7: 05/11/18 10:38 05/12/18 05:40 Labs: Laboratory Last Values WBC 7.1 K/mm3 (4.5-11.0) 05/11/18 10:38 RBC 3.36 M/mm3 (3.65-5.03) L 05/11/18 10:38 Hgb 8.2 gm/dl (10.1-14.3) L 05/11/18 10:38 Hct 26.0 % (30.3-42.9) L 05/11/18 10:38 MCV 78 fl (79-97) L 05/11/18 10:38 MCH 24 pg (28-32) L 05/11/18 10:38 MCHC 31 % (30-34) 05/11/18 10:38 RDW 23.0 % (13.2-15.2) H 05/11/18 10:38 Plt Count 246 K/mm3 (140-440) 05/11/18 10:38 Add Manual Diff Complete 05/11/18 10:38 Total Counted 100 05/11/18 10:38 Seg Neuts % (Manual) 95.0 % (40.0-70.0) H 05/11/18 10:38 Band Neutrophils % 0 % 05/11/18 10:38 Lymphocytes % (Manual) 3.0 % (13.4-35.0) L 05/11/18 10:38 Reactive Lymphs % (Man) 0 % 05/11/18 10:38 Monocytes % (Manual) 2.0 % (0.0-7.3) 05/11/18 10:38 Eosinophils % (Manual) 0 % (0.0-4.3) 05/11/18 10:38 Basophils % (Manual) 0 % (0.0-1.8) 05/11/18 10:38 Metamyelocytes % 0 % 05/11/18 10:38 Myelocytes % 0 % 05/11/18 10:38 Promyelocytes % 0 % 05/11/18 10:38 Blast Cells % 0 % 05/11/18 10:38 Nucleated RBC % Not Reportable 05/11/18 10:38 Seg Neutrophils # Man 6.7 K/mm3 (1.8-7.7) 05/11/18 10:38 Band Neutrophils # 0.0 K/mm3 05/11/18 10:38 Lymphocytes # (Manual) 0.2 K/mm3 (1.2-5.4) L 05/11/18 10:38 Abs React Lymphs (Man) 0.0 K/mm3 05/11/18 10:38 Monocytes # (Manual) 0.1 K/mm3 (0.0-0.8) 05/11/18 10:38 Eosinophils # (Manual) 0.0 K/mm3 (0.0-0.4) 05/11/18 10:38 Basophils # (Manual) 0.0 K/mm3 (0.0-0.1) 05/11/18 10:38 Metamyelocytes # 0.0 K/mm3 05/11/18 10:38 Myelocytes # 0.0 K/mm3 05/11/18 10:38 Promyelocytes # 0.0 K/mm3 05/11/18 10:38 Blast Cells # 0.0 K/mm3 05/11/18 10:38 WBC Morphology Not Reportable 05/11/18 10:38 Hypersegmented Neuts Not Reportable 05/11/18 10:38 Hyposegmented Neuts Not Reportable 05/11/18 10:38 Hypogranular Neuts Not Reportable 05/11/18 10:38 Smudge Cells Not Reportable 05/11/18 10:38 Toxic Granulation Not Reportable 05/11/18 10:38 Toxic Vacuolation Not Reportable 05/11/18 10:38 Dohle Bodies Not Reportable 05/11/18 10:38 Pelger-Huet Anomaly Not Reportable 05/11/18 10:38 Shazia Rods Not Reportable 05/11/18 10:38 Platelet Estimate Consistent w auto 05/11/18 10:38 Clumped Platelets Not Reportable 05/11/18 10:38 Plt Clumps, EDTA Not Reportable 05/11/18 10:38 Large Platelets Not Reportable 05/11/18 10:38 Giant Platelets Not Reportable 05/11/18 10:38 Platelet Satelliting Not Reportable 05/11/18 10:38 Plt Morphology Comment Not Reportable 05/11/18 10:38 RBC Morphology Not Reportable 05/11/18 10:38 Dimorphic RBCs Not Reportable 05/11/18 10:38 Polychromasia Not Reportable 05/11/18 10:38 Hypochromasia 1+ 05/11/18 10:38 Poikilocytosis 2+ 05/11/18 10:38 Anisocytosis 2+ 05/11/18 10:38 Microcytosis Not Reportable 05/11/18 10:38 Macrocytosis Not Reportable 05/11/18 10:38 Spherocytes Not Reportable 05/11/18 10:38 Pappenheimer Bodies Not Reportable 05/11/18 10:38 Sickle Cells Not Reportable 05/11/18 10:38 Target Cells Few 05/11/18 10:38 Tear Drop Cells 1+ 05/11/18 10:38 Ovalocytes 2+ 05/11/18 10:38 Helmet Cells Not Reportable 05/11/18 10:[address] [place] Bodies Not Reportable 05/11/18 10:38 [place] Rings Not Reportable 05/11/18 10:38 [place] Cells Not Reportable 05/11/18 10:38 Bite Cells Not Reportable 05/11/18 10:38 Crenated Cell Not Reportable 05/11/18 10:38 Elliptocytes 1+ 05/11/18 10:38 Acanthocytes (Spur) Not Reportable 05/11/18 10:38 Rouleaux Not Reportable 05/11/18 10:38 Hemoglobin C Crystals Not Reportable 05/11/18 10:38 Schistocytes Not Reportable 05/11/18 10:38 Malaria parasites Not Reportable 05/11/18 10:38 [place] Bodies Not Reportable 05/11/18 10:38 Hem Pathologist Commnt No 05/11/18 10:38 PT 16.8 Sec. (12.2-14.9) H 05/11/18 10:38 INR 1.32 (0.87-1.13) H 05/11/18 10:38 APTT 25.6 Sec. (24.2-36.6) 05/11/18 10:38 Sodium 139 mmol/L (137-145) 05/12/18 05:40 Potassium 5.4 mmol/L (3.6-5.0) H 05/12/18 05:40 Chloride 95.9 mmol/L (98-107) L 05/12/18 05:40 Carbon Dioxide 22 mmol/L (22-30) 05/12/18 05:40 Anion Gap 27 mmol/L 05/12/18 05:40 BUN 43 mg/dL (7-17) H 05/12/18 05:40 Creatinine 6.3 mg/dL (0.7-1.2) H 05/12/18 05:40 Estimated GFR 8 ml/min 05/12/18 05:40 BUN/Creatinine Ratio 7 % 05/12/18 05:40 Glucose 87 mg/dL (65-100) 05/12/18 05:40 POC Glucose 119 (70-105) H 05/11/18 20:54 Lactic Acid 1.80 mmol/L (0.7-2.0) 05/11/18 21:25 Calcium 9.2 mg/dL (8.4-10.2) 05/12/18 05:40 Total Bilirubin 0.40 mg/dL (0.1-1.2) 05/11/18 10:38 AST 16 units/L (5-40) 05/11/18 10:38 ALT 6 units/L (7-56) L 05/11/18 10:38 Alkaline Phosphatase 74 units/L (35-129) 05/11/18 10:38 Total Creatine Kinase 269 units/L (30-135) H 05/11/18 16:46 CK-MB (CK-2) 12.3 ng/mL (0.0-4.0) H 05/11/18 16:46 CK-MB (CK-2) Rel Index 4.5 (0-4) H 05/11/18 16:46 Troponin T 1.540 ng/mL (0.00-0.029) H* 05/11/18 16:46 NT-Pro-B Natriuret Pep > 93817 pg/mL (0-900) H 05/11/18 10:38 Total Protein 6.6 g/dL (6.3-8.2) 05/11/18 10:38 Albumin 3.0 g/dL (3.9-5) L 05/11/18 10:38 Albumin/Globulin Ratio 0.8 % 05/11/18 10:38 Triglycerides 182 mg/dL (2-149) H 05/11/18 10:38 Cholesterol 102 mg/dL (50-199) 05/11/18 10:38 LDL Cholesterol Direct 44 mg/dL (50-130) L 05/11/18 10:38 HDL Cholesterol 26 mg/dL (40-59) L 05/11/18 10:38 Cholesterol/HDL Ratio 3.92 % 05/11/18 10:38 Urine Color Yellow (Yellow) 05/11/18 12:03 Urine Turbidity Turbid (Clear) 05/11/18 12:03 Urine pH 7.0 (5.0-7.0) 05/11/18 12:03 Ur Specific [place] 1.012 (1.003-1.030) 05/11/18 12:03 Urine Protein 100 mg/dl mg/dL (Negative) 05/11/18 12:03 Urine Glucose (UA) Neg mg/dL (Negative) 05/11/18 12:03 Urine Ketones Neg mg/dL (Negative) 05/11/18 12:03 Urine Blood Mod (Negative) 05/11/18 12:03 Urine Nitrite Neg (Negative) 05/11/18 12:03 Urine Bilirubin Neg (Negative) 05/11/18 12:03 Urine Urobilinogen < 2.0 mg/dL (<2.0) 05/11/18 12:03 Ur Leukocyte Esterase Mod (Negative) 05/11/18 12:03 Urine WBC (Auto) > 182.0 /HPF (0.0-6.0) H 05/11/18 12:03 Urine RBC (Auto) 170.0 /HPF (0.0-6.0) 05/11/18 12:03 Urine Bacteria (Auto) 4+ /HPF (Negative) 05/11/18 12:03 Urine WBC Clumps 3+ /HPF 05/11/18 12:03
[2018-05-12] MEDS: PROzac PO SCH (13:47)
[2018-05-12] MEDS: FEOSOL PO SCH ×2 (13:47→23:50)
[2018-05-12] MEDS: KEPPRA PO SCH ×2 (13:47→23:50)
[2018-05-12] MEDS: LEVOPHED DRIP 4 MG/NS 250 ML 4 MG/250 ML BAG IV SCH (19:50)
[2018-05-12] MEDS: PROCRIT SUB-Q PRN (19:51)
[2018-05-13 05:23] LABS: Calcium 9.2 mg/dL (8.4-10.2)
[2018-05-13 05:32] LABS: Hematocrit 29.8 % (30.3-42.9); Hemoglobin 9.4 gm/dl (10.1-14.3); Mean Corpuscular HGB Conc 32 % (30-34); Mean Corpuscular Volume 77 fl (79-97); Red Blood Count 3.87 M/mm3 (3.65-5.03)
[2018-05-13 05:41] LABS: Platelet Count 114 K/mm3 (140-440); Red Cell Distribution Width 23.4 % (13.2-15.2)
[2018-05-13 07:38] LABS: Band Neutrophils # (Manual) 0.5 K/mm3; Basophils % (Manual) 0 % (0.0-1.8); Eosinophils % (Manual) 0 % (0.0-4.3); Total Cells Counted 100
[2018-05-13 07:39] LABS: Anisocytosis 2+; Hypochromasia 1+; Ovalocytes 2+; Platelet Estimate Consistent w Auto; Tear Drop Cells 1+
[2018-05-13] MEDS ORDERED: NACL 0.9% 100 ML IV PRN (09:07)
[2018-05-13] MEDS: LEVOPHED DRIP 4 MG/NS 250 ML 4 MG/250 ML BAG IV SCH ×2 (10:02→21:39)
[2018-05-13] MEDS: PERCOCET 5/325 PO PRN (10:04)
[2018-05-13] MEDS: RENVELA PO SCH (10:05)
[2018-05-13] MEDS: FEOSOL PO SCH ×2 (10:06→21:33)
[2018-05-13] MEDS: PROzac PO SCH (10:06)
[2018-05-13] MEDS: PROTONIX IV SCH (10:06)
[2018-05-13] MEDS: KEPPRA PO SCH ×2 (10:06→21:32)
[2018-05-13] MEDS: NEURONTIN PO SCH ×2 (10:06→21:33)
[2018-05-13] MEDS: ASPIRIN PO SCH (10:06)
--- NOTE | 2018-05-13 12:41 | Progress Note ---
Assessment and Plan Assessment and plan: CVA. Head CT shows acute to subacute ischemic insult suspected in right parietal lobe. Follow-up MRI/MRA, echocardiogram. Continue antiplatelet therapy and follow-up lipid panel. PT/OT/ST NSTEMI type II. Patient with troponin elevation consistent with type II [place]. Cardiology following. ECG with SR, RBBB, no acute ischemic changes. Septic shock. Blood cultures revealed coag-negative staph. ? Contaminant. ID consultation. Continue pressors to maintain MEP greater than 65. ESRD. Continue hemodialysis per nephrology. History of chronic right lower extremity DVT. PTSD. Hyperkalemia. Patient had hemodialysis today. Volume overload. UF with Hemodialysis today. History of MRSA bacteremia. Suicidal ideation. Await psychiatric consultation History Interval history: Patient is somnolent this morning but arousable. No new complaints. Hospitalist Physical - Constitutional Vitals: Temp Pulse Resp BP Pulse Ox 94.6 F L 104 H 13 97/51 92 05/13/18 04:00 05/13/18 09:00 05/13/18 09:00 05/13/18 09:00 05/13/18 08:50 General appearance: Present: no acute distress, obese, disheveled - EENT Eyes: Present: PERRL, EOM intact ENT: hearing intact, clear oral mucosa, dentition normal - Neck Neck: Present: supple, normal ROM - Respiratory Respiratory effort: normal Respiratory: bilateral: CTA - Cardiovascular Rhythm: regular Heart Sounds: Present: S1 & S2. Absent: gallop, rub - Extremities Extremities: no ischemia, No edema, Full ROM - Abdominal General gastrointestinal: soft, non-tender, non-distended, normal bowel sounds - Integumentary Integumentary: Present: clear, warm, dry - Neurologic Neurologic: CNII-XII intact, moves all extremities Results - Labs CBC & Chem 7: 05/13/18 04:39 05/13/18 04:39 Labs: Laboratory Last Values WBC 9.2 K/mm3 (4.5-11.0) 05/13/18 04:39 RBC 3.87 M/mm3 (3.65-5.03) 05/13/18 04:39 Hgb 9.4 gm/dl (10.1-14.3) L 05/13/18 04:39 Hct 29.8 % (30.3-42.9) L 05/13/18 04:39 MCV 77 fl (79-97) L 05/13/18 04:39 MCH 24 pg (28-32) L 05/13/18 04:39 MCHC 32 % (30-34) 05/13/18 04:39 RDW 23.4 % (13.2-15.2) H 05/13/18 04:39 Plt Count 114 K/mm3 (140-440) L 05/13/18 04:39 Add Manual Diff Complete 05/13/18 04:39 Total Counted 100 05/13/18 04:39 Seg Neuts % (Manual) 82.0 % (40.0-70.0) H 05/13/18 04:39 Band Neutrophils % 5.0 % 05/13/18 04:39 Lymphocytes % (Manual) 11.0 % (13.4-35.0) L 05/13/18 04:39 Reactive Lymphs % (Man) 0 % 05/13/18 04:39 Monocytes % (Manual) 2.0 % (0.0-7.3) 05/13/18 04:39 Eosinophils % (Manual) 0 % (0.0-4.3) 05/13/18 04:39 Basophils % (Manual) 0 % (0.0-1.8) 05/13/18 04:39 Metamyelocytes % 0 % 05/13/18 04:39 Myelocytes % 0 % 05/13/18 04:39 Promyelocytes % 0 % 05/13/18 04:39 Blast Cells % 0 % 05/13/18 04:39 Nucleated RBC % Not Reportable 05/13/18 04:39 Seg Neutrophils # Man 7.5 K/mm3 (1.8-7.7) 05/13/18 04:39 Band Neutrophils # 0.5 K/mm3 05/13/18 04:39 Lymphocytes # (Manual) 1.0 K/mm3 (1.2-5.4) L 05/13/18 04:39 Abs React Lymphs (Man) 0.0 K/mm3 05/13/18 04:39 Monocytes # (Manual) 0.2 K/mm3 (0.0-0.8) 05/13/18 04:39 Eosinophils # (Manual) 0.0 K/mm3 (0.0-0.4) 05/13/18 04:39 Basophils # (Manual) 0.0 K/mm3 (0.0-0.1) 05/13/18 04:39 Metamyelocytes # 0.0 K/mm3 05/13/18 04:39 Myelocytes # 0.0 K/mm3 05/13/18 04:39 Promyelocytes # 0.0 K/mm3 05/13/18 04:39 Blast Cells # 0.0 K/mm3 05/13/18 04:39 WBC Morphology Not Reportable 05/13/18 04:39 Hypersegmented Neuts Not Reportable 05/13/18 04:39 Hyposegmented Neuts Not Reportable 05/13/18 04:39 Hypogranular Neuts Not Reportable 05/13/18 04:39 Smudge Cells Not Reportable 05/13/18 04:39 Toxic Granulation Not Reportable 05/13/18 04:39 Toxic Vacuolation Not Reportable 05/13/18 04:39 Dohle Bodies Not Reportable 05/13/18 04:39 Pelger-Huet Anomaly Not Reportable 05/13/18 04:39 Shazia Rods Not Reportable 05/13/18 04:39 Platelet Estimate Consistent w auto 05/13/18 04:39 Clumped Platelets Not Reportable 05/13/18 04:39 Plt Clumps, EDTA Not Reportable 05/13/18 04:39 Large Platelets Not Reportable 05/13/18 04:39 Giant Platelets Not Reportable 05/13/18 04:39 Platelet Satelliting Not Reportable 05/13/18 04:39 Plt Morphology Comment Not Reportable 05/13/18 04:39 RBC Morphology Not Reportable 05/13/18 04:39 Dimorphic RBCs Not Reportable 05/13/18 04:39 Polychromasia Not Reportable 05/13/18 04:39 Hypochromasia 1+ 05/13/18 04:39 Poikilocytosis Not Reportable 05/13/18 04:39 Anisocytosis 2+ 05/13/18 04:39 Microcytosis Not Reportable 05/13/18 04:39 Macrocytosis Not Reportable 05/13/18 04:39 Spherocytes Not Reportable 05/13/18 04:39 Pappenheimer Bodies Not Reportable 05/13/18 04:39 Sickle Cells Not Reportable 05/13/18 04:39 Target Cells Not Reportable 05/13/18 04:39 Tear Drop Cells 1+ 05/13/18 04:39 Ovalocytes 2+ 05/13/18 04:39 Helmet Cells Not Reportable 05/13/18 04:39 [place] Bodies Not Reportable 05/13/18 04:39 [place] Rings Not Reportable 05/13/18 04:39 [place] Cells Not Reportable 05/13/18 04:39 Bite Cells Not Reportable 05/13/18 04:39 Crenated Cell Not Reportable 05/13/18 04:39 Elliptocytes 1+ 05/13/18 04:39 Acanthocytes (Spur) Not Reportable 05/13/18 04:39 Rouleaux Not Reportable 05/13/18 04:39 Hemoglobin C Crystals Not Reportable 05/13/18 04:39 Schistocytes Not Reportable 05/13/18 04:39 Malaria parasites Not Reportable 05/13/18 04:39 [place] Bodies Not Reportable 05/13/18 04:39 Hem Pathologist Commnt No 05/13/18 04:39 PT 16.8 Sec. (12.2-14.9) H 05/11/18 10:38 INR 1.32 (0.87-1.13) H 05/11/18 10:38 APTT 25.6 Sec. (24.2-36.6) 05/11/18 10:38 Sodium 140 mmol/L (137-145) 05/13/18 04:39 Potassium 5.5 mmol/L (3.6-5.0) H 05/13/18 04:39 Chloride 96.7 mmol/L (98-107) L 05/13/18 04:39 Carbon Dioxide 23 mmol/L (22-30) 05/13/18 04:39 Anion Gap 26 mmol/L 05/13/18 04:39 BUN 32 mg/dL (7-17) H 05/13/18 04:39 Creatinine 4.8 mg/dL (0.7-1.2) H 05/13/18 04:39 Estimated GFR 11 ml/min 05/13/18 04:39 BUN/Creatinine Ratio 7 % 05/13/18 04:39 Glucose 105 mg/dL (65-100) H 05/13/18 04:39 POC Glucose 68 (70-105) L 05/12/18 22:27 Lactic Acid 1.80 mmol/L (0.7-2.0) 05/11/18 21:25 Calcium 9.2 mg/dL (8.4-10.2) 05/13/18 04:39 Total Bilirubin 0.40 mg/dL (0.1-1.2) 05/11/18 10:38 AST 16 units/L (5-40) 05/11/18 10:38 ALT 6 units/L (7-56) L 05/11/18 10:38 Alkaline Phosphatase 74 units/L (35-129) 05/11/18 10:38 Total Creatine Kinase 269 units/L (30-135) H 05/11/18 16:46 CK-MB (CK-2) 12.3 ng/mL (0.0-4.0) H 05/11/18 16:46 CK-MB (CK-2) Rel Index 4.5 (0-4) H 05/11/18 16:46 Troponin T 1.540 ng/mL (0.00-0.029) H* 05/11/18 16:46 NT-Pro-B Natriuret Pep > 51675 pg/mL (0-900) H 05/11/18 10:38 Total Protein 6.6 g/dL (6.3-8.2) 05/11/18 10:38 Albumin 3.0 g/dL (3.9-5) L 05/11/18 10:38 Albumin/Globulin Ratio 0.8 % 05/11/18 10:38 Triglycerides 182 mg/dL (2-149) H 05/11/18 10:38 Cholesterol 102 mg/dL (50-199) 05/11/18 10:38 LDL Cholesterol Direct 44 mg/dL (50-130) L 05/11/18 10:38 HDL Cholesterol 26 mg/dL (40-59) L 05/11/18 10:38 Cholesterol/HDL Ratio 3.92 % 05/11/18 10:38 Urine Color Yellow (Yellow) 05/11/18 12:03 Urine Turbidity Turbid (Clear) 05/11/18 12:03 Urine pH 7.0 (5.0-7.0) 05/11/18 12:03 Ur Specific [place] 1.012 (1.003-1.030) 05/11/18 12:03 Urine Protein 100 mg/dl mg/dL (Negative) 05/11/18 12:03 Urine Glucose (UA) Neg mg/dL (Negative) 05/11/18 12:03 Urine Ketones Neg mg/dL (Negative) 05/11/18 12:03 Urine Blood Mod (Negative) 05/11/18 12:03 Urine Nitrite Neg (Negative) 05/11/18 12:03 Urine Bilirubin Neg (Negative) 05/11/18 12:03 Urine Urobilinogen < 2.0 mg/dL (<2.0) 05/11/18 12:03 Ur Leukocyte Esterase Mod (Negative) 05/11/18 12:03 Urine WBC (Auto) > 182.0 /HPF (0.0-6.0) H 05/11/18 12:03 Urine RBC (Auto) 170.0 /HPF (0.0-6.0) 05/11/18 12:03 Urine Bacteria (Auto) 4+ /HPF (Negative) 05/11/18 12:03 Urine WBC Clumps 3+ /HPF 05/11/18 12:03
--- NOTE | 2018-05-13 13:09 | Progress Note ---
Assessment and Plan Head CT shows acute to subacute ischemic insult suspected in right parietal lobe. Cardiology has been consulted for elevated troponin level. Pt denies any chest pain. ECG with SR, RBBB, no acute ischemic changes. Troponin elevation likely c/w NSTEMI type II. Do not recommend heparinization at this time in setting of CVA and recommend neurology consultation per primary. Wean vasopressors as tolerated. Patient is in S.R. - Patient Problems (1) Anemia Current Visit: Yes Status: Acute (2) CVA (cerebral vascular accident) Current Visit: Yes Status: Acute Qualifiers: Precerebral and cerebral artery: posterior cerebral artery (3) NSTEMI (non-ST elevated myocardial infarction) Current Visit: Yes Status: Acute (4) UTI (urinary tract infection) Current Visit: Yes Status: Acute Qualifiers: (5) ASD (atrial septal defect) Current Visit: Yes Status: Chronic Subjective Date of service: 05/13/18 Principal diagnosis: CVA Interval history: Patient is comfortable,getting dialysis. Objective Vital Signs Temp Pulse Resp BP Pulse Ox 05/13/18 12:50 88 98/34 05/13/18 12:45 96 H 87/34 05/13/18 12:30 93 H 97/47 05/13/18 12:15 97 H 96/53 05/13/18 12:00 97.4 F L 92 H 11 L 96/49 05/13/18 09:00 104 H 13 97/51 05/13/18 08:50 105 H 15 96/54 92 05/13/18 08:40 104 H 16 63/33 92 05/13/18 08:30 105 H 14 98/49 90 05/13/18 08:20 104 H 13 94/49 91 05/13/18 08:10 98 H 16 63/33 91 05/13/18 08:00 96 H 15 91/46 90 05/13/18 07:50 98 H 14 91/46 92 05/13/18 07:40 98 H 14 94/45 93 05/13/18 07:30 99 H 15 94/45 05/13/18 07:20 99 H 14 88/46 93 05/13/18 07:10 98 H 14 93/44 92 05/13/18 07:00 98 H 15 95/47 90 05/13/18 06:50 98 H 15 93/44 92 05/13/18 06:40 98 H 15 97/45 92 05/13/18 06:30 98 H 12 97/45 91 05/13/18 06:20 97 H 13 92/43 92 05/13/18 06:10 94 H 13 89/47 92 05/13/18 06:00 94 H 13 89/47 90 05/13/18 05:50 97 H 20 89/47 96 05/13/18 05:40 95 H 13 94/52 98 05/13/18 05:30 95 H 13 94/52 05/13/18 05:20 95 H 13 91/52 97 05/13/18 05:10 94 H 13 86/49 98 05/13/18 05:00 92 H 12 63/38 96 05/13/18 04:50 91 H 13 63/38 94 05/13/18 04:40 94 H 11 L 63/38 95 05/13/18 04:30 93 H 18 94/48 93 05/13/18 04:20 90 12 94/48 93 05/13/18 04:10 91 H 11 L 97/55 94 05/13/18 04:00 94.6 F L 92 H 11 L 95/53 93 05/13/18 03:50 89 14 102/56 94 05/13/18 03:40 85 11 L 91/50 96 05/13/18 03:30 88 11 L 97/55 05/13/18 03:20 87 10 L 97/55 96 05/13/18 03:10 86 11 L 91/50 97 05/13/18 03:00 85 11 L 91/50 05/13/18 02:50 85 11 L 95/56 98 05/13/18 02:40 84 12 103/61 98 05/13/18 02:30 84 11 L 103/61 97 05/13/18 02:20 84 11 L 91/56 98 05/13/18 02:10 83 12 98/56 98 05/13/18 02:00 83 12 98/56 97 05/13/18 01:50 86 13 114/68 05/13/18 01:40 86 11 L 106/59 99 05/13/18 01:30 85 12 106/59 100 05/13/18 01:20 84 11 L 86/49 99 05/13/18 01:10 83 11 L 89/50 99 05/13/18 01:00 83 12 89/50 98 05/13/18 00:50 83 11 L 93/51 100 05/13/18 00:40 83 12 94/56 99 05/13/18 00:30 84 12 94/56 100 05/13/18 00:20 83 12 88/51 90 05/13/18 00:10 85 14 90/50 05/13/18 00:08 84 13 90/50 61 L 05/13/18 00:00 94.3 F L 85 13 90/50 63 L 05/12/18 23:50 86 13 73/34 100 05/12/18 23:43 90 05/12/18 23:40 86 13 75/40 100 05/12/18 23:30 87 17 75/40 99 05/12/18 23:20 88 14 74/36 98 05/12/18 23:10 88 20 68/34 96 05/12/18 23:00 88 15 68/34 97 05/12/18 22:50 90 13 69/34 96 05/12/18 22:40 91 H 16 67/35 96 05/12/18 22:30 89 15 67/35 91 05/12/18 22:20 92 H 17 70/39 82 L 05/12/18 22:10 93 H 15 74/42 87 05/12/18 22:00 98 F 87 14 94/40 05/12/18 21:50 88 14 94/40 05/12/18 21:40 88 13 85/46 05/12/18 21:35 92 H 15 05/12/18 21:28 97.8 F 84 18 89/50 05/12/18 21:20 84 11 L 99/57 05/12/18 21:15 84 11 L 99/57 05/12/18 21:00 83 13 96/57 94 05/12/18 20:45 83 11 L 88/53 05/12/18 20:30 84 10 L 89/49 55 L 05/12/18 20:15 84 10 L 86/50 05/12/18 20:00 86 11 L 98/54 05/12/18 19:45 85 14 92/52 05/12/18 19:30 85 11 L 104/62 05/12/18 19:15 82 11 L 99/57 05/12/18 19:00 84 10 L 91/65 05/12/18 18:45 84 12 83/58 36 L 05/12/18 18:30 84 11 L 95/56 05/12/18 18:15 81 10 L 95/55 05/12/18 18:14 99.2 F 81 16 99/59 05/12/18 18:00 80 11 L 97/59 05/12/18 17:45 85 16 99/59 94 05/12/18 17:30 84 14 102/58 05/12/18 17:15 84 17 106/62 98 05/12/18 17:00 84 11 L 117/68 99 05/12/18 16:45 85 12 92/56 78 L 05/12/18 16:30 84 11 L 101/57 85 05/12/18 16:15 84 14 117/68 05/12/18 16:00 83 19 106/65 05/12/18 15:45 84 14 95/68 05/12/18 15:30 84 17 101/63 77 L 05/12/18 15:15 85 12 99/59 05/12/18 15:00 85 14 112/64 05/12/18 14:45 85 21 107/59 95 05/12/18 14:30 84 13 110/62 96 05/12/18 14:15 85 15 111/65 97 05/12/18 14:00 98.8 F 85 11 L 94/61 96 05/12/18 13:45 86 15 96/60 95 05/12/18 13:30 87 11 L 107/63 97 05/12/18 13:16 89 20 93/58 95 - Physical Examination General: Other (lethargic ) Neck: Positive: neck supple, trachea midline Cardiac: Positive: Irregularly Regular, irregularly irregular Lungs: Positive: Decreased Breath Sounds Neuro: Positive: Other (lethargic) Abdomen: Positive: Unremarkable Musculoskeletal: No Pain Extremities: Absent: edema - Labs and Meds CBC 05/13/18 Range/Units 04:39 WBC 9.2 (4.5-11.0) K/mm3 RBC 3.87 (3.65-5.03) M/mm3 Hgb 9.4 L (10.1-14.3) gm/dl Hct 29.8 L (30.3-42.9) % Plt Count 114 L (140-440) K/mm3 Comprehensive Metabolic Panel 05/13/18 Range/Units 04:39 Sodium 140 (137-145) mmol/L Potassium 5.5 H (3.6-5.0) mmol/L Chloride 96.7 L (98-107) mmol/L Carbon Dioxide 23 (22-30) mmol/L BUN 32 H (7-17) mg/dL Creatinine 4.8 H (0.7-1.2) mg/dL Glucose 105 H (65-100) mg/dL Calcium 9.2 (8.4-10.2) mg/dL - Imaging and Cardiology EKG: report reviewed, image reviewed Echo: report reviewed (TTE done 04/17/2018 showed EF 55-60%, RA severely dilated, mild to mod TR, trace MR, RV severely dilated, RV systolic function mod to severely reduced, severe pulm HTN with RVSP 67mmHg. SASHA 04/20/2018: endocarditis involving the posterior mitral valve leaflet, atrial septal defect with severe right heart enlargement and severe right ventricular dysfunction, severe pulmonary hypertension) - EKG Sinus rhythms and dysrhythmias: sinus rhythm AV and intraventricular conduction: right bundle branch block
--- NOTE | 2018-05-13 14:28 | Progress Note ---
Assessment and Plan 1. ESRD: Continue hemodialysis three times a week, TTS schedule. HD today. 2. Hyperkalemia: HD today. 3. Hypotension: On Levophed. 4. NSTEMI: Followed by Cards. 5. CVA. 6. H/o MRSA bacteremia: Vancomycin. Pharmacy consulted. 7. Encephalopathy. Subjective Date of service: 05/13/18 Principal diagnosis: CVA Interval history: Patient was seen and examined at the bedside. Objective - Vital Signs Vital signs: Vital Signs - 12hr 05/13/18 05/13/18 05/13/18 02:30 02:40 02:50 Temperature Pulse Rate 84 84 85 Respiratory 11 L 12 11 L Rate Blood Pressure 103/61 103/61 95/56 O2 Sat by Pulse 97 98 98 Oximetry 05/13/18 05/13/18 05/13/18 03:00 03:10 03:20 Temperature Pulse Rate 85 86 87 Respiratory 11 L 11 L 10 L Rate Blood Pressure 91/50 91/50 97/55 O2 Sat by Pulse 97 96 Oximetry 05/13/18 05/13/18 05/13/18 03:30 03:40 03:50 Temperature Pulse Rate 88 85 89 Respiratory 11 L 11 L 14 Rate Blood Pressure 97/55 91/50 102/56 O2 Sat by Pulse 96 94 Oximetry 05/13/18 05/13/18 05/13/18 04:00 04:10 04:20 Temperature 94.6 F L Pulse Rate 92 H 91 H 90 Respiratory 11 L 11 L 12 Rate Blood Pressure 95/53 97/55 94/48 O2 Sat by Pulse 93 94 93 Oximetry 05/13/18 05/13/18 05/13/18 04:30 04:40 04:50 Temperature Pulse Rate 93 H 94 H 91 H Respiratory 18 11 L 13 Rate Blood Pressure 94/48 63/38 63/38 O2 Sat by Pulse 93 95 94 Oximetry 05/13/18 05/13/18 05/13/18 05:00 05:10 05:20 Temperature Pulse Rate 92 H 94 H 95 H Respiratory 12 13 13 Rate Blood Pressure 63/38 86/49 91/52 O2 Sat by Pulse 96 98 97 Oximetry 05/13/18 05/13/18 05/13/18 05:30 05:40 05:50 Temperature Pulse Rate 95 H 95 H 97 H Respiratory 13 13 20 Rate Blood Pressure 94/52 94/52 89/47 O2 Sat by Pulse 98 96 Oximetry 05/13/18 05/13/18 05/13/18 06:00 06:10 06:20 Temperature Pulse Rate 94 H 94 H 97 H Respiratory 13 13 13 Rate Blood Pressure 89/47 89/47 92/43 O2 Sat by Pulse 90 92 92 Oximetry 05/13/18 05/13/18 05/13/18 06:30 06:40 06:50 Temperature Pulse Rate 98 H 98 H 98 H Respiratory 12 15 15 Rate Blood Pressure 97/45 97/45 93/44 O2 Sat by Pulse 91 92 92 Oximetry 05/13/18 05/13/18 05/13/18 07:00 07:10 07:20 Temperature Pulse Rate 98 H 98 H 99 H Respiratory 15 14 14 Rate Blood Pressure 95/47 93/44 88/46 O2 Sat by Pulse 90 92 93 Oximetry 05/13/18 05/13/18 05/13/18 07:30 07:40 07:50 Temperature Pulse Rate 99 H 98 H 98 H Respiratory 15 14 14 Rate Blood Pressure 94/45 94/45 91/46 O2 Sat by Pulse 93 92 Oximetry 05/13/18 05/13/18 05/13/18 08:00 08:10 08:20 Temperature Pulse Rate 96 H 98 H 104 H Respiratory 15 16 13 Rate Blood Pressure 91/46 63/33 94/49 O2 Sat by Pulse 90 91 91 Oximetry 05/13/18 05/13/18 05/13/18 08:30 08:40 08:50 Temperature Pulse Rate 105 H 104 H 105 H Respiratory 14 16 15 Rate Blood Pressure 98/49 63/33 96/54 O2 Sat by Pulse 90 92 92 Oximetry 05/13/18 05/13/18 05/13/18 09:00 12:00 12:15 Temperature 97.4 F L Pulse Rate 104 H 92 H 97 H Respiratory 13 11 L Rate Blood Pressure 97/51 96/49 96/53 O2 Sat by Pulse Oximetry 05/13/18 05/13/18 05/13/18 12:30 12:45 12:50 Temperature Pulse Rate 93 H 96 H 88 Respiratory Rate Blood Pressure 97/47 87/34 98/34 O2 Sat by Pulse Oximetry 05/13/18 05/13/18 05/13/18 13:00 13:15 13:20 Temperature Pulse Rate 89 87 92 H Respiratory Rate Blood Pressure 89/44 75/34 96/47 O2 Sat by Pulse Oximetry - General Appearance General appearance: well-developed, appears stated age, other (not in distress) EENT: ATNC, PERRL Neck: supple Respiratory: Present: Clear to Ascultation Cardiology: regular, S1S2, no murmurs Gastrointestinal: normoactive bowel sounds, no tenderness, no distended Integumentary: ulcer (right leg) Neurologic: other (stuporous, opens eyes, non-verbal, not following any command) Musculoskeletal: other (trace extremity edema, left arm AVG) - Lab 05/13/18 04:39 05/13/18 04:39 Most recent lab results Calcium 9.2 mg/dL (8.4-10.2) 05/13/18 04:39 Medications & Allergies - Medications Allergies/Adverse Reactions: Allergies codeine Allergy (Verified 03/04/16 15:27) Rash Sulfa (Sulfonamide Antibiotics) Allergy (Verified 03/04/16 15:27) Rash Home Medications: Home Medications Medication Instructions Recorded Confirmed Last Taken Type Albuterol Sulfate [Ventolin HFA] 2 puff IH Q4H PRN 03/31/16 05/11/18 04/14/18 10:00 History Esomeprazole Magnesium [NexIUM] 40 mg PO QDAY #30 capsule. 03/30/18 05/11/18 04/14/18 10:00 Rx Gabapentin [Neurontin] 100 mg PO Q12HR capsule 05/01/18 05/11/18 Unknown Rx Sevelamer Carbonate [Renvela] 2,400 mg PO AC tablet 05/01/18 05/11/18 Unknown Rx levETIRAcetam [Keppra TAB] 500 mg PO BID tablet 05/01/18 05/11/18 Unknown Rx oxyCODONE /ACETAMINOPHEN [Percocet 1 tab PO Q6H PRN #30 tablet 05/01/18 05/11/18 Unknown Rx 5/325 mg] ALBUTEROL NEB's [Proventil] 2.5 mg IH Q6H PRN 05/11/18 05/11/18 Unknown History Acetaminophen [Tylenol] 650 mg PO Q4H PRN 05/11/18 05/11/18 Unknown History Acetaminophen [Tylenol] 650 mg PO Q4H PRN 05/11/18 05/11/18 Unknown History FLUoxetine [PROzac] 20 mg PO QDAY 05/11/18 05/11/18 Unknown History Ferrous Sulfate [Iron] 325 mg PO BID 05/11/18 05/11/18 Unknown History Hydroxyzine HCl [hydrOXYzine] 50 mg PO Q12H PRN 05/11/18 05/11/18 Unknown History Quetiapine Fumarate [SEROquel] 50 mg PO Q12H 05/11/18 05/11/18 Unknown History clonazePAM [Clonazepam] 1 mg PO Q12H PRN 05/11/18 05/11/18 Unknown History Active Medications: Generic Name Dose Route Start Last Admin Trade Name Freq PRN Reason Stop Dose Admin Acetaminophen 650 mg 05/11/18 14:34 Tylenol PO Q4H PRN Pain, Mild (1-3) Acetaminophen 650 mg 05/11/18 18:28 Tylenol PO Q4H PRN Fever >101 Albuterol 2.5 mg 05/11/18 14:34 Proventil IH Q3HRT PRN Shortness Of Breath Albuterol 2.5 mg 05/11/18 18:28 Proventil IH Q6H PRN Wheezing Aspirin 325 mg 05/12/18 10:00 05/13/18 10:06 Aspirin PO 325 mg QDAY DAVIN Administration Atorvastatin Calcium 40 mg 05/11/18 22:00 05/12/18 23:50 Lipitor PO 40 mg QHS DAVIN Administration Bisacodyl 10 mg 05/11/18 14:34 Dulcolax IA QDAY PRN Constipation Clonazepam 1 mg 05/11/18 19:00 05/13/18 10:03 Klonopin PO 1 mg Q12H DAVIN Administration Epoetin Jt 20,000 unit 05/12/18 08:46 05/12/18 19:51 Procrit SUB-Q 20,000 unit MYAH PRN Administration hemodialysis Ferrous Sulfate 325 mg 05/11/18 22:00 05/13/18 10:06 Feosol PO 325 mg BID DAVIN Administration Fluoxetine HCl 20 mg 05/12/18 10:00 05/13/18 10:06 Prozac PO 20 mg QDAY DAVIN Administration Gabapentin 100 mg 05/11/18 22:00 05/13/18 10:06 Neurontin PO 100 mg Q12HR DAVIN Administration Hydroxyzine HCl 50 mg 05/11/18 22:00 Atarax PO Q12H PRN Itching Norepinephrine 4 mg in 250 mls @ 7.5 mls/hr 05/11/18 13:00 05/13/18 10:02 Levophed Drip 4 Mg/Ns 250 Ml IV 10 mcg/min TITR DAVIN 37.5 mls/hr Administration Protocol 2 MCG/MIN Sodium Chloride 100 mls @ 999 mls/hr 05/13/18 09:07 Nacl 0.9% IV MYAH PRN Hypotension Levetiracetam 500 mg 05/11/18 22:00 05/13/18 10:06 Keppra PO 500 mg BID DAVIN Administration Magnesium Hydroxide 30 ml 05/11/18 14:34 Milk Of Magnesia PO Q4H PRN Constipation Metoclopramide HCl 10 mg 05/11/18 14:34 Reglan PO Q6H PRN Nausea And Vomiting Ondansetron HCl 4 mg 05/11/18 14:34 Zofran IV Q8H PRN Nausea And Vomiting Oxycodone/Acetaminophen 1 tab 05/11/18 18:28 05/13/18 10:04 Percocet 5/325 PO 1 tab Q6H PRN Administration Pain, Moderate (4-6) Pantoprazole Sodium 40 mg 05/12/18 10:00 05/13/18 10:06 Protonix IV 40 mg QDAY DAVIN Administration Promethazine HCl 25 mg 05/11/18 14:34 Phenergan IA Q6H PRN Nausea And Vomiting Quetiapine Fumarate 50 mg 05/11/18 19:00 05/13/18 10:04 Seroquel PO 50 mg Q12H DAVIN Administration Sevelamer Carbonate 2,400 mg 05/12/18 07:30 05/13/18 10:05 Renvela PO 2,400 mg AC DAVIN Administration Sodium Chloride 10 ml 05/11/18 14:34 05/12/18 13:00 Sodium Chloride Flush Syringe 10 Ml IV 10 ml PRN PRN Administration LINE FLUSH
[2018-05-13] MEDS: PROCRIT SUB-Q PRN (14:56)
[2018-05-13] MEDS ORDERED: VANCOMYCIN PHARMACY TO DOSE IV SCH (15:00)
[2018-05-13] MEDS ORDERED: VANCOMYCIN 1,500 MG in NACL 0.9% 500 ML 500 ML IV ONE (16:00)
--- NOTE | 2018-05-13 18:17 | Consultation ---
History of Present Illness - Reason for Consult Consult date: 05/13/18 sepsis Requesting physician: DANY FLEMING - History of Present Illness 62 y/o female with hypertension, congestive heart failure, ESRD on hemodialysis, asthma, chronic right lower extremity DVT, seizure disorder, diabetes mellitus type 2, recently seen by ID due to right calf infected hematoma secondary to MRSA treated with wound VAC and IV antibiotics, admitted on 04/15/2018 found to have acute mitral valve endocarditis secondary to MRSA bacteremia. Repeat blood cultures were negative. SASHA positive for mitral valve vegetation. Noted to have bilateral pulmonary nodules deemed to be bilateral septic emboli. WBC tagged scan showed 2 subtle but suspicious areas of radiotracer accumulation are identified on the delayed images in the medial left arm and in the region of the right knee. Plan was to continue IV Vancomycin post HD x 6 weeks, target pre- dialysis levels between 10-20 mcg/ml (end date: 05/29/2018). Unfortunately, patient was re-admitted on 05/11/2018 due to acute AMS. Patient is unable to provide any history. She is at [facility], as per staff, the patient was found to be confused. Upon arrival the patient was encephalopathic. In the ED, temp 98, HR 86, R 19, O2 sat 100, BP 81/54, WBC 7.1, Hg 8.2, plat 246, creat 6.3, lactate 2.3, BNP 35K, troponins 1.3. CT head showed acute or subacute right parietal infarct. MRI brain showed small multifocal areas of acute or subacute infarct as described. No evidence of intracranial hemorrhage. White matter disease. Mild mastoiditis. MRA head no significant stenosis. Review of Systems: unable to obtain Past History Past Medical History: arthritis, ESRD, GERD, heart failure, hypertension Past Surgical History: cholecystectomy, hysterectomy, Other (AV fistula) Social history: Family history: CAD, hypertension Medications and Allergies Allergies Allergy/AdvReac Type Severity Reaction Status Date / Time codeine Allergy Rash Verified 03/04/16 15:27 Sulfa (Sulfonamide Allergy Rash Verified 03/04/16 15:27 Antibiotics) Home Medications Medication Instructions Recorded Confirmed Last Taken Type Albuterol Sulfate [Ventolin HFA] 2 puff IH Q4H PRN 03/31/16 05/11/18 04/14/18 10:00 History Esomeprazole Magnesium [NexIUM] 40 mg PO QDAY #30 capsule. 03/30/18 05/11/18 04/14/18 10:00 Rx Gabapentin [Neurontin] 100 mg PO Q12HR capsule 05/01/18 05/11/18 Unknown Rx Sevelamer Carbonate [Renvela] 2,400 mg PO AC tablet 05/01/18 05/11/18 Unknown Rx levETIRAcetam [Keppra TAB] 500 mg PO BID tablet 05/01/18 05/11/18 Unknown Rx oxyCODONE /ACETAMINOPHEN [Percocet 1 tab PO Q6H PRN #30 tablet 05/01/18 05/11/18 Unknown Rx 5/325 mg] ALBUTEROL NEB's [Proventil] 2.5 mg IH Q6H PRN 05/11/18 05/11/18 Unknown History Acetaminophen [Tylenol] 650 mg PO Q4H PRN 05/11/18 05/11/18 Unknown History Acetaminophen [Tylenol] 650 mg PO Q4H PRN 05/11/18 05/11/18 Unknown History FLUoxetine [PROzac] 20 mg PO QDAY 05/11/18 05/11/18 Unknown History Ferrous Sulfate [Iron] 325 mg PO BID 05/11/18 05/11/18 Unknown History Hydroxyzine HCl [hydrOXYzine] 50 mg PO Q12H PRN 05/11/18 05/11/18 Unknown History Quetiapine Fumarate [SEROquel] 50 mg PO Q12H 05/11/18 05/11/18 Unknown History clonazePAM [Clonazepam] 1 mg PO Q12H PRN 05/11/18 05/11/18 Unknown History Active Meds: Active Medications Acetaminophen (Tylenol) 650 mg PO Q4H PRN PRN Reason: Fever >101 Albuterol (Proventil) 2.5 mg IH Q3HRT PRN PRN Reason: Shortness Of Breath Albuterol (Proventil) 2.5 mg IH Q6H PRN PRN Reason: Wheezing Aspirin (Aspirin) 325 mg PO QDAY [facility] Last Admin: 05/13/18 10:06 Dose: 325 mg Documented by: Atorvastatin Calcium (Lipitor) 40 mg PO QHS [facility] Last Admin: 05/12/18 23:50 Dose: 40 mg Documented by: Bisacodyl (Dulcolax) 10 mg PA QDAY PRN PRN Reason: Constipation Clonazepam (Klonopin) 1 mg PO Q12H [facility] Last Admin: 05/13/18 10:03 Dose: 1 mg Documented by: Epoetin Jt (Procrit) 20,000 unit SUB-Q MYAH PRN PRN Reason: hemodialysis Last Admin: 05/13/18 14:56 Dose: 20,000 unit Documented by: Ferrous Sulfate (Feosol) 325 mg PO BID [facility] Last Admin: 05/13/18 10:06 Dose: 325 mg Documented by: Fluoxetine HCl (Prozac) 20 mg PO QDAY [facility] Last Admin: 05/13/18 10:06 Dose: 20 mg Documented by: Gabapentin (Neurontin) 100 mg PO Q12HR [facility] Last Admin: 05/13/18 10:06 Dose: 100 mg Documented by: Hydroxyzine HCl (Atarax) 50 mg PO Q12H PRN PRN Reason: Itching Norepinephrine (Levophed Drip 4 Mg/Ns 250 Ml) 4 mg in 250 mls @ 7.5 mls/hr IV TITR [facility]; Protocol Last Admin: 05/13/18 10:02 Dose: 10 mcg/min, 37.5 mls/hr Documented by: Sodium Chloride (Nacl 0.9%) 100 mls @ 999 mls/hr IV MYAH PRN PRN Reason: Hypotension Levetiracetam (Keppra) 500 mg PO BID [facility] Last Admin: 05/13/18 10:06 Dose: 500 mg Documented by: Magnesium Hydroxide (Milk Of Magnesia) 30 ml PO Q4H PRN PRN Reason: Constipation Metoclopramide HCl (Reglan) 10 mg PO Q6H PRN PRN Reason: Nausea And Vomiting Ondansetron HCl (Zofran) 4 mg IV Q8H PRN PRN Reason: Nausea And Vomiting Oxycodone/Acetaminophen (Percocet 5/325) 1 tab PO Q6H PRN PRN Reason: Pain, Moderate (4-6) Last Admin: 05/13/18 10:04 Dose: 1 tab Documented by: Pantoprazole Sodium (Protonix) 40 mg IV QDAY [facility] Last Admin: 05/13/18 10:06 Dose: 40 mg Documented by: Promethazine HCl (Phenergan) 25 mg PA Q6H PRN PRN Reason: Nausea And Vomiting Quetiapine Fumarate (Seroquel) 50 mg PO Q12H [facility] Last Admin: 05/13/18 10:04 Dose: 50 mg Documented by: Sevelamer Carbonate (Renvela) 2,400 mg PO AC [facility] Last Admin: 05/13/18 10:05 Dose: 2,400 mg Documented by: Sodium Chloride (Sodium Chloride Flush Syringe 10 Ml) 10 ml IV PRN PRN PRN Reason: LINE FLUSH Last Admin: 05/12/18 13:00 Dose: 10 ml Documented by: Physical Examination - Physical Exam Narrative exam: General appearance: somnolent in NAD, non conversant on NC O2 Eyes: anicteric sclerae, moist conjunctivae; no lid-lag; PERRLA HENT: Atraumatic; oropharynx limited Neck: Trachea midline; supple, no thyromegaly or lymphadenopathy Lungs: CTA distant BS CV: tachycardic Abdomen: Soft, non-tender; no masses or hepatosplenomegaly Extremities: +shanon edema Skin: Normal temperature, turgor and texture; no rash, ulcers or subcutaneous nodules Psych: somnolent Neuro: somnolent non verbal Lines: right femoral TLC - Constitutional Vitals: Vital Signs Temp Pulse Resp BP Pulse Ox 96.3 F L 105 H 11 L 102/39 92 05/13/18 15:01 05/13/18 15:01 05/13/18 15:01 05/13/18 15:01 05/13/18 08:50 Temperature -Last 24 Hours Temperature 96.3 F Temperature 97.4 F Temperature 94.6 F Temperature 94.3 F Temperature 98 F Temperature 97.8 F Results - Labs CBC & Chem 7: 05/13/18 04:39 05/13/18 04:39 Labs: Abnormal lab results 05/12/18 05/13/18 05/13/18 Range/Units 22:27 04:39 04:39 Hgb 9.4 L (10.1-14.3) gm/dl Hct 29.8 L (30.3-42.9) % MCV 77 L (79-97) fl MCH 24 L (28-32) pg RDW 23.4 H (13.2-15.2) % Plt Count 114 L (140-440) K/mm3 Seg Neuts % (Manual) 82.0 H (40.0-70.0) % Lymphocytes % (Manual) 11.0 L (13.4-35.0) % Lymphocytes # (Manual) 1.0 L (1.2-5.4) K/mm3 Potassium 5.5 H (3.6-5.0) mmol/L Chloride 96.7 L (98-107) mmol/L BUN 32 H (7-17) mg/dL Creatinine 4.8 H (0.7-1.2) mg/dL Glucose 105 H (65-100) mg/dL POC Glucose 68 L (70-105) Assessment and Plan Cultures: Blood culture 04/15/2018 MRSA Blood culture 04/17/2018 negative Blood culture 05/11/2018 [employer] 1 of 4 bottles Urine culture 05/11/2018 neg Assessment: 62 y/o female with hypertension, congestive heart failure, ESRD on hemodialysis, asthma, chronic right lower extremity DVT, seizure disorder, diabetes mellitus type 2, admitted on 04/15/2018 found to have acute mitral valve endocarditis s econdary to MRSA bacteremia, was on IV Vancomycin post HD x 6 weeks end date: 05/29/2018, admitted due to AMS. 1) Shock: multifactorial ?septic +/- cardiogenic; patient with acute mitral valve endocarditis secondary to MRSA bacteremia, was on IV Vancomycin on HD. Possible brain emboli +/- acute heart failure/NSEMI +/- UTI. UA c/w UTI. 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 CXR shows heart failure. Currently on levophed at 16 mcg/min 2) Acute UTI: urine cx no growth 3) Acute multifocal CVA: likely from MV endocarditis - CT head showed acute or subacute right parietal infarct. - MRI brain showed small multifocal areas of acute or subacute infarct as described. No evidence of intracranial hemorrhage. White matter disease. Mild mastoiditis. - MRA head no significant stenosis 4) Recent acute mitral valve endocarditis secondary to MRSA: patient receving IV Vancomycin on HD, no evidence of recurrent MRSA bacteremia so far. - SASHA 04/20/2018 positive for mitral valve vegetation. Noted to have bilateral pulmonary nodules deemed to be bilateral septic emboli. - WBC tagged scan 04/27/2018 showed 2 subtle but suspicious areas of radiotracer accumulation are identified on the delayed images in the medial left arm and in the region of the right knee. - Plan was to continue IV Vancomycin post HD x 6 weeks, target pre-dialysis levels between 10-20 mcg/ml (end date: 05/29/2018). 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 Marilin Smith MD Infectious Diseases Departmental [employer] [facility] M [phone] O [phone]
[2018-05-13] MEDS ORDERED: .VANCOMYCIN VIAL 1,000 MG in NACL 0.9% 100 ML IV SCH (19:00)
[2018-05-13] MEDS ORDERED: NACL 0.9 (PRIMING MACHINE ONLY DIALYSIS) MC ONE (22:32)
[2018-05-13] MEDS: ROCEPHIN/NS 1 GM/50 ML 1 GM/50 ML BAG IV SCH (23:42)
[2018-05-14] MEDS: LEVOPHED DRIP 4 MG/NS 250 ML 4 MG/250 ML BAG IV SCH ×5 (02:02→21:59)
[2018-05-14 04:05] LABS: Basophils # (Auto) 0.1 K/mm3 (0.0-0.1); Basophils % (Auto) 0.7 % (0.0-1.8); Eosinophils # (Auto) 0.1 K/mm3 (0.0-0.4); Eosinophils % (Auto) 1.1 % (0.0-4.3); Lymphocytes # (Auto) 1.1 K/mm3 (1.2-5.4); Lymphocytes % (Auto) 11.8 % (13.4-35.0); Mean Corpuscular HGB Conc 30 % (30-34); Mean Corpuscular Volume 79 fl (79-97); Monocytes # (Auto) 0.9 K/mm3 (0.0-0.8); Monocytes % (Auto) 10.5 % (0.0-7.3); Platelet Count 313 K/mm3 (140-440)
[2018-05-14 04:09] LABS: Hemoglobin 9.8 gm/dl (10.1-14.3)
[2018-05-14 04:10] LABS: Hematocrit 32.5 % (30.3-42.9); Red Cell Distribution Width 23.8 % (13.2-15.2)
[2018-05-14 04:15] LABS: Calcium 8.9 mg/dL (8.4-10.2)
[2018-05-14] MEDS: NEURONTIN PO SCH ×3 (08:58→20:59)
[2018-05-14] MEDS: PROzac PO SCH ×2 (08:58→09:20)
[2018-05-14] MEDS: PROTONIX IV SCH ×2 (08:59→09:20)
[2018-05-14] MEDS: FEOSOL PO SCH ×2 (08:59→22:01)
[2018-05-14] MEDS: RENVELA PO SCH ×4 (09:00→19:48)
[2018-05-14] MEDS: KEPPRA PO SCH ×2 (09:00→21:00)
[2018-05-14] MEDS: PERCOCET 5/325 PO PRN (09:01)
[2018-05-14] MEDS: ASPIRIN PO SCH (09:20)
--- NOTE | 2018-05-14 09:27 | Progress Note ---
Assessment and Plan Assessment and plan: CVA. Head CT shows acute to subacute ischemic insult suspected in right parietal lobe. MRI brain showed small multifocal areas of acute and subacute infarct. No evidence of intracranial hemorrhage. MRA head with no significant stenosis. Etiology likely secondary to mitral valve endocarditis. Continue antiplatelet therapy and follow-up lipid panel. PT/OT/ST NSTEMI type II. Patient with troponin elevation consistent with type II DC. Cardiology following. ECG with SR, RBBB, no acute ischemic changes. Septic shock. Etiology secondary to acute mitral valve endocarditis secondary to MRSA bacteremia. Blood cultures from 05/11/17 revealed [employer] which is most likely a contaminant. Continue pressors to maintain MAP greater than 65. Recent acute mitral valve endocarditis secondary to MRSA. Patient receiving IV vancomycin on hemodialysis. Blood cultures did not show any evidence of recurre nt MRSA bacteremia. - SASHA 04/20/2018 positive for mitral valve vegetation. Noted to have bilateral pulmonary nodules deemed to be bilateral septic emboli. - WBC tagged scan 04/27/2018 showed 2 subtle but suspicious areas of radiotracer accumulation are identified on the delayed images in the medial left arm and in the region Repeat TTE pending. - Acute encephalopathy. Etiology secondary to above--CVA/toxic metabolic causes. ESRD. Continue hemodialysis per nephrology. UTI. Urinalysis consistent with UTI. Follow-up urine cultures. Continue Rocephin. History of chronic right lower extremity DVT. PTSD. Hyperkalemia. Patient had hemodialysis today. Volume overload. UF with Hemodialysis today. History Interval history: 62 y/o female with hypertension, congestive heart failure, ESRD on hemodialysis, asthma, chronic right lower extremity DVT, seizure disorder, diabetes mellitus type 2, admitted on 04/15/2018 found to have acute mitral valve endocarditis secondary to MRSA bacteremia, was on IV Vancomycin post HD x 6 weeks end date: 05/29/2018, admitted due to AMS. Patient is somnolent this morning but arousable. No new complaints. Hospitalist Physical - Constitutional Vitals: Temp Pulse Resp BP Pulse Ox 98.7 F 100 H 25 H 130/71 95 05/14/18 04:00 05/14/18 07:00 05/14/18 07:00 05/14/18 07:00 05/14/18 07:00 General appearance: Present: no acute distress, obese, disheveled - EENT Eyes: Present: PERRL, EOM intact ENT: hearing intact, clear oral mucosa, dentition normal - Neck Neck: Present: supple, normal ROM - Respiratory Respiratory effort: normal Respiratory: bilateral: CTA - Cardiovascular Rhythm: regular Heart Sounds: Present: S1 & S2. Absent: gallop, rub - Extremities Extremities: no ischemia, No edema, Full ROM - Abdominal General gastrointestinal: soft, non-tender, non-distended, normal bowel sounds - Integumentary Integumentary: Present: clear, warm, dry - Neurologic Neurologic: CNII-XII intact, moves all extremities Results - Labs CBC & Chem 7: 05/14/18 03:20 05/14/18 03:20 Labs: Laboratory Last Values WBC 9.1 K/mm3 (4.5-11.0) 05/14/18 03:20 RBC 4.10 M/mm3 (3.65-5.03) 05/14/18 03:20 Hgb 9.8 gm/dl (10.1-14.3) L 05/14/18 03:20 Hct 32.5 % (30.3-42.9) 05/14/18 03:20 MCV 79 fl (79-97) 05/14/18 03:20 MCH 24 pg (28-32) L 05/14/18 03:20 MCHC 30 % (30-34) 05/14/18 03:20 RDW 23.8 % (13.2-15.2) H 05/14/18 03:20 Plt Count 313 K/mm3 (140-440) D 05/14/18 03:20 Lymph % (Auto) 11.8 % (13.4-35.0) L 05/14/18 03:20 [place] % (Auto) 10.5 % (0.0-7.3) H 05/14/18 03:20 Eos % (Auto) 1.1 % (0.0-4.3) 05/14/18 03:20 Baso % (Auto) 0.7 % (0.0-1.8) 05/14/18 03:20 Lymph # 1.1 K/mm3 (1.2-5.4) L 05/14/18 03:20 [place] # 0.9 K/mm3 (0.0-0.8) H 05/14/18 03:20 Eos # 0.1 K/mm3 (0.0-0.4) 05/14/18 03:20 Baso # 0.1 K/mm3 (0.0-0.1) 05/14/18 03:20 Add Manual Diff Complete 05/13/18 04:39 Total Counted 100 05/13/18 04:39 Seg Neutrophils % 75.9 % (40.0-70.0) H 05/14/18 03:20 Seg Neuts % (Manual) 82.0 % (40.0-70.0) H 05/13/18 04:39 Band Neutrophils % 5.0 % 05/13/18 04:39 Lymphocytes % (Manual) 11.0 % (13.4-35.0) L 05/13/18 04:39 Reactive Lymphs % (Man) 0 % 05/13/18 04:39 Monocytes % (Manual) 2.0 % (0.0-7.3) 05/13/18 04:39 Eosinophils % (Manual) 0 % (0.0-4.3) 05/13/18 04:39 Basophils % (Manual) 0 % (0.0-1.8) 05/13/18 04:39 Metamyelocytes % 0 % 05/13/18 04:39 Myelocytes % 0 % 05/13/18 04:39 Promyelocytes % 0 % 05/13/18 04:39 Blast Cells % 0 % 05/13/18 04:39 Nucleated RBC % Not Reportable 05/13/18 04:39 Seg Neutrophils # 6.9 K/mm3 (1.8-7.7) 05/14/18 03:20 Seg Neutrophils # Man 7.5 K/mm3 (1.8-7.7) 05/13/18 04:39 Band Neutrophils # 0.5 K/mm3 05/13/18 04:39 Lymphocytes # (Manual) 1.0 K/mm3 (1.2-5.4) L 05/13/18 04:39 Abs React Lymphs (Man) 0.0 K/mm3 05/13/18 04:39 Monocytes # (Manual) 0.2 K/mm3 (0.0-0.8) 05/13/18 04:39 Eosinophils # (Manual) 0.0 K/mm3 (0.0-0.4) 05/13/18 04:39 Basophils # (Manual) 0.0 K/mm3 (0.0-0.1) 05/13/18 04:39 Metamyelocytes # 0.0 K/mm3 05/13/18 04:39 Myelocytes # 0.0 K/mm3 05/13/18 04:39 Promyelocytes # 0.0 K/mm3 05/13/18 04:39 Blast Cells # 0.0 K/mm3 05/13/18 04:39 WBC Morphology Not Reportable 05/13/18 04:39 Hypersegmented Neuts Not Reportable 05/13/18 04:39 Hyposegmented Neuts Not Reportable 05/13/18 04:39 Hypogranular Neuts Not Reportable 05/13/18 04:39 Smudge Cells Not Reportable 05/13/18 04:39 Toxic Granulation Not Reportable 05/13/18 04:39 Toxic Vacuolation Not Reportable 05/13/18 04:39 Dohle Bodies Not Reportable 05/13/18 04:39 Pelger-Huet Anomaly Not Reportable 05/13/18 04:39 Shazia Rods Not Reportable 05/13/18 04:39 Platelet Estimate Consistent w auto 05/13/18 04:39 Clumped Platelets Not Reportable 05/13/18 04:39 Plt Clumps, EDTA Not Reportable 05/13/18 04:39 Large Platelets Not Reportable 05/13/18 04:39 Giant Platelets Not Reportable 05/13/18 04:39 Platelet Satelliting Not Reportable 05/13/18 04:39 Plt Morphology Comment Not Reportable 05/13/18 04:39 RBC Morphology Not Reportable 05/13/18 04:39 Dimorphic RBCs Not Reportable 05/13/18 04:39 Polychromasia Not Reportable 05/13/18 04:39 Hypochromasia 1+ 05/13/18 04:39 Poikilocytosis Not Reportable 05/13/18 04:39 Anisocytosis 2+ 05/13/18 04:39 Microcytosis Not Reportable 05/13/18 04:39 Macrocytosis Not Reportable 05/13/18 04:39 Spherocytes Not Reportable 05/13/18 04:39 Pappenheimer Bodies Not Reportable 05/13/18 04:39 Sickle Cells Not Reportable 05/13/18 04:39 Target Cells Not Reportable 05/13/18 04:39 Tear Drop Cells 1+ 05/13/18 04:39 Ovalocytes 2+ 05/13/18 04:39 Helmet Cells Not Reportable 05/13/18 04:39 Sant[place] Bodies Not Reportable 05/13/18 04:39 [place] Rings Not Reportable 05/13/18 04:39 Crystal Cells Not Reportable 05/13/18 04:39 Bite Cells Not Reportable 05/13/18 04:39 Crenated Cell Not Reportable 05/13/18 04:39 Elliptocytes 1+ 05/13/18 04:39 Acanthocytes (Spur) Not Reportable 05/13/18 04:39 Rouleaux Not Reportable 05/13/18 04:39 Hemoglobin C Crystals Not Reportable 05/13/18 04:39 Schistocytes Not Reportable 05/13/18 04:39 Malaria parasites Not Reportable 05/13/18 04:39 [place] Bodies Not Reportable 05/13/18 04:39 Hem Pathologist Commnt No 05/13/18 04:39 PT 16.8 Sec. (12.2-14.9) H 05/11/18 10:38 INR 1.32 (0.87-1.13) H 05/11/18 10:38 APTT 25.6 Sec. (24.2-36.6) 05/11/18 10:38 Sodium 138 mmol/L (137-145) 05/14/18 03:20 Potassium 4.1 mmol/L (3.6-5.0) D 05/14/18 03:20 Chloride 96.8 mmol/L (98-107) L 05/14/18 03:20 Carbon Dioxide 26 mmol/L (22-30) 05/14/18 03:20 Anion Gap 19 mmol/L 05/14/18 03:20 BUN 18 mg/dL (7-17) H 05/14/18 03:20 Creatinine 3.2 mg/dL (0.7-1.2) H 05/14/18 03:20 Estimated GFR 18 ml/min 05/14/18 03:20 BUN/Creatinine Ratio 6 % 05/14/18 03:20 Glucose 115 mg/dL (65-100) H 05/14/18 03:20 POC Glucose 68 (70-105) L 05/12/18 22:27 Lactic Acid 1.80 mmol/L (0.7-2.0) 05/11/18 21:25 Calcium 8.9 mg/dL (8.4-10.2) 05/14/18 03:20 Total Bilirubin 0.40 mg/dL (0.1-1.2) 05/11/18 10:38 AST 16 units/L (5-40) 05/11/18 10:38 ALT 6 units/L (7-56) L 05/11/18 10:38 Alkaline Phosphatase 74 units/L (35-129) 05/11/18 10:38 Total Creatine Kinase 269 units/L (30-135) H 05/11/18 16:46 CK-MB (CK-2) 12.3 ng/mL (0.0-4.0) H 05/11/18 16:46 CK-MB (CK-2) Rel Index 4.5 (0-4) H 05/11/18 16:46 Troponin T 1.540 ng/mL (0.00-0.029) H* 05/11/18 16:46 NT-Pro-B Natriuret Pep > 97599 pg/mL (0-900) H 05/11/18 10:38 Total Protein 6.6 g/dL (6.3-8.2) 05/11/18 10:38 Albumin 3.0 g/dL (3.9-5) L 05/11/18 10:38 Albumin/Globulin Ratio 0.8 % 05/11/18 10:38 Triglycerides 182 mg/dL (2-149) H 05/11/18 10:38 Cholesterol 102 mg/dL (50-199) 05/11/18 10:38 LDL Cholesterol Direct 44 mg/dL (50-130) L 05/11/18 10:38 HDL Cholesterol 26 mg/dL (40-59) L 05/11/18 10:38 Cholesterol/HDL Ratio 3.92 % 05/11/18 10:38 Urine Color Yellow (Yellow) 05/11/18 12:03 Urine Turbidity Turbid (Clear) 05/11/18 12:03 Urine pH 7.0 (5.0-7.0) 05/11/18 12:03 Ur Specific [place] 1.012 (1.003-1.030) 05/11/18 12:03 Urine Protein 100 mg/dl mg/dL (Negative) 05/11/18 12:03 Urine Glucose (UA) Neg mg/dL (Negative) 05/11/18 12:03 Urine Ketones Neg mg/dL (Negative) 05/11/18 12:03 Urine Blood Mod (Negative) 05/11/18 12:03 Urine Nitrite Neg (Negative) 05/11/18 12:03 Urine Bilirubin Neg (Negative) 05/11/18 12:03 Urine Urobilinogen < 2.0 mg/dL (<2.0) 05/11/18 12:03 Ur Leukocyte Esterase Mod (Negative) 05/11/18 12:03 Urine WBC (Auto) > 182.0 /HPF (0.0-6.0) H 05/11/18 12:03 Urine RBC (Auto) 170.0 /HPF (0.0-6.0) 05/11/18 12:03 Urine Bacteria (Auto) 4+ /HPF (Negative) 05/11/18 12:03 Urine WBC Clumps 3+ /HPF 05/11/18 12:03
[2018-05-14] MEDS: ROCEPHIN/NS 1 GM/50 ML 1 GM/50 ML BAG IV SCH (12:04)
--- NOTE | 2018-05-14 12:05 | Progress Note ---
Assessment and Plan 1. ESRD: Continue hemodialysis three times a week, TTS schedule. 2. Hyperkalemia: Improved after HD. 3. Hypotension: On Levophed. 4. NSTEMI: Followed by Cards. 5. CVA. 6. H/o MRSA bacteremia: On Vancomycin. 7. Encephalopathy. Subjective Date of service: 05/14/18 Principal diagnosis: CVA Interval history: Patient was seen and examined at the bedside. Objective - Vital Signs Vital signs: Vital Signs - 12hr 05/14/18 05/14/18 05/14/18 00:10 00:20 00:30 Temperature Pulse Rate 97 H 117 H 117 H Respiratory 16 24 21 Rate Blood Pressure 102/59 106/59 112/64 O2 Sat by Pulse 93 94 93 Oximetry 05/14/18 05/14/18 05/14/18 00:40 00:50 01:00 Temperature Pulse Rate 115 H 116 H 103 H Respiratory 14 14 21 Rate Blood Pressure 112/64 112/65 112/63 O2 Sat by Pulse 94 95 Oximetry 05/14/18 05/14/18 05/14/18 01:10 01:20 01:30 Temperature Pulse Rate 97 H 93 H 99 H Respiratory 19 12 28 H Rate Blood Pressure 112/63 114/68 119/70 O2 Sat by Pulse 95 94 94 Oximetry 05/14/18 05/14/18 05/14/18 01:40 01:50 02:00 Temperature Pulse Rate 115 H 113 H 113 H Respiratory 15 24 13 Rate Blood Pressure 119/70 112/63 112/63 O2 Sat by Pulse 95 94 95 Oximetry 05/14/18 05/14/18 05/14/18 02:10 02:20 02:30 Temperature Pulse Rate 115 H 116 H 116 H Respiratory 26 H 26 H 18 Rate Blood Pressure 96/56 96/56 126/71 O2 Sat by Pulse 95 95 Oximetry 05/14/18 05/14/18 05/14/18 02:40 02:50 03:00 Temperature Pulse Rate 115 H 116 H 115 H Respiratory 15 22 18 Rate Blood Pressure 126/71 124/73 122/73 O2 Sat by Pulse 95 95 Oximetry 05/14/18 05/14/18 05/14/18 03:10 03:20 03:30 Temperature Pulse Rate 96 H 92 H 92 H Respiratory 24 20 21 Rate Blood Pressure 122/73 124/73 122/63 O2 Sat by Pulse 95 95 95 Oximetry 05/14/18 05/14/18 05/14/18 03:40 03:50 04:00 Temperature 98.7 F Pulse Rate 115 H 116 H 116 H Respiratory 21 24 13 Rate Blood Pressure 122/63 124/71 117/68 O2 Sat by Pulse 96 96 95 Oximetry 05/14/18 05/14/18 05/14/18 04:10 04:20 04:30 Temperature Pulse Rate 116 H 116 H 116 H Respiratory 18 14 13 Rate Blood Pressure 117/68 117/68 115/72 O2 Sat by Pulse 96 96 96 Oximetry 05/14/18 05/14/18 05/14/18 04:40 04:50 05:00 Temperature Pulse Rate 99 H 96 H 100 H Respiratory 18 17 18 Rate Blood Pressure 115/72 123/69 125/73 O2 Sat by Pulse 96 96 96 Oximetry 05/14/18 05/14/18 05/14/18 05:10 05:20 05:30 Temperature Pulse Rate 100 H 100 H 92 H Respiratory 22 18 18 Rate Blood Pressure 125/73 126/76 126/76 O2 Sat by Pulse 96 96 97 Oximetry 05/14/18 05/14/18 05/14/18 05:40 05:50 06:00 Temperature Pulse Rate 116 H 114 H 111 H Respiratory 21 21 16 Rate Blood Pressure 108/70 127/69 122/74 O2 Sat by Pulse 96 95 96 Oximetry 05/14/18 05/14/18 05/14/18 06:10 06:20 06:30 Temperature Pulse Rate 114 H 111 H 114 H Respiratory 24 23 27 H Rate Blood Pressure 122/74 128/77 131/77 O2 Sat by Pulse 95 97 95 Oximetry 05/14/18 05/14/18 05/14/18 06:40 06:50 07:00 Temperature Pulse Rate 101 H 104 H 100 H Respiratory 22 19 25 H Rate Blood Pressure 131/77 130/69 130/71 O2 Sat by Pulse 97 96 95 Oximetry - General Appearance General appearance: well-developed, appears stated age, other (not in distress) EENT: ATNC, PERRL Neck: supple Respiratory: Present: Clear to Ascultation Cardiology: regular, S1S2, no murmurs Gastrointestinal: normoactive bowel sounds, no tenderness, no distended Integumentary: no rash Neurologic: other (opens eyes. not following any command, non-verbal) Musculoskeletal: other (bilateral UE edematous, left arm AVG) - Lab 05/14/18 03:20 05/14/18 03:20 Most recent lab results Calcium 8.9 mg/dL (8.4-10.2) 05/14/18 03:20 Medications & Allergies - Medications Allergies/Adverse Reactions: Allergies codeine Allergy (Verified 03/04/16 15:27) Rash Sulfa (Sulfonamide Antibiotics) Allergy (Verified 03/04/16 15:27) Rash Home Medications: Home Medications Medication Instructions Recorded Confirmed Last Taken Type Albuterol Sulfate [Ventolin HFA] 2 puff IH Q4H PRN 03/31/16 05/11/18 04/14/18 10:00 History Esomeprazole Magnesium [NexIUM] 40 mg PO QDAY #30 capsule. 03/30/18 05/11/18 04/14/18 10:00 Rx Gabapentin [Neurontin] 100 mg PO Q12HR capsule 05/01/18 05/11/18 Unknown Rx Sevelamer Carbonate [Renvela] 2,400 mg PO AC tablet 05/01/18 05/11/18 Unknown Rx levETIRAcetam [Keppra TAB] 500 mg PO BID tablet 05/01/18 05/11/18 Unknown Rx oxyCODONE /ACETAMINOPHEN [Percocet 1 tab PO Q6H PRN #30 tablet 05/01/18 05/11/18 Unknown Rx 5/325 mg] ALBUTEROL NEB's [Proventil] 2.5 mg IH Q6H PRN 05/11/18 05/11/18 Unknown History Acetaminophen [Tylenol] 650 mg PO Q4H PRN 05/11/18 05/11/18 Unknown History Acetaminophen [Tylenol] 650 mg PO Q4H PRN 05/11/18 05/11/18 Unknown History FLUoxetine [PROzac] 20 mg PO QDAY 05/11/18 05/11/18 Unknown History Ferrous Sulfate [Iron] 325 mg PO BID 05/11/18 05/11/18 Unknown History Hydroxyzine HCl [hydrOXYzine] 50 mg PO Q12H PRN 05/11/18 05/11/18 Unknown History Quetiapine Fumarate [SEROquel] 50 mg PO Q12H 05/11/18 05/11/18 Unknown History clonazePAM [Clonazepam] 1 mg PO Q12H PRN 05/11/18 05/11/18 Unknown History Active Medications: Generic Name Dose Route Start Last Admin Trade Name Freq PRN Reason Stop Dose Admin Acetaminophen 650 mg 05/11/18 18:28 Tylenol PO Q4H PRN Fever >101 Albuterol 2.5 mg 05/11/18 14:34 Proventil IH Q3HRT PRN Shortness Of Breath Aspirin 325 mg 05/12/18 10:00 05/13/18 10:06 Aspirin PO 325 mg QDAY DAVIN Administration Atorvastatin Calcium 40 mg 05/11/18 22:00 05/13/18 21:33 Lipitor PO 40 mg QHS DAVIN Administration Bisacodyl 10 mg 05/11/18 14:34 Dulcolax ND QDAY PRN Constipation Clonazepam 1 mg 05/11/18 19:00 05/14/18 08:59 Klonopin PO 1 mg Q12H DAVIN Administration Epoetin Jt 20,000 unit 05/12/18 08:46 05/13/18 14:56 Procrit SUB-Q 20,000 unit MYAH PRN Administration hemodialysis Ferrous Sulfate 325 mg 05/11/18 22:00 05/14/18 08:59 Feosol PO 325 mg BID DAVIN Administration Fluoxetine HCl 20 mg 05/12/18 10:00 05/14/18 08:58 Prozac PO 20 mg QDAY DAVIN Administration Gabapentin 100 mg 05/11/18 22:00 05/14/18 08:58 Neurontin PO 100 mg Q12HR DAVIN Administration Hydroxyzine HCl 50 mg 05/11/18 22:00 Atarax PO Q12H PRN Itching Norepinephrine 4 mg in 250 mls @ 7.5 mls/hr 05/11/18 13:00 05/14/18 12:04 Levophed Drip 4 Mg/Ns 250 Ml IV 16 mcg/min TITR DAVIN 60 mls/hr Administration Protocol 2 MCG/MIN Sodium Chloride 100 mls @ 999 mls/hr 05/13/18 09:07 Nacl 0.9% IV MYAH PRN Hypotension Ceftriaxone Sodium 1 gm in 50 mls @ 100 mls/hr 05/13/18 21:00 05/14/18 12:04 Rocephin/Ns 1 Gm/50 Ml IV 100 mls/hr Q24HR DAVIN Administration Protocol Levetiracetam 500 mg 05/11/18 22:00 05/14/18 09:00 Keppra PO 500 mg BID DAVIN Administration Magnesium Hydroxide 30 ml 05/11/18 14:34 Milk Of Magnesia PO Q4H PRN Constipation Metoclopramide HCl 10 mg 05/11/18 14:34 Reglan PO Q6H PRN Nausea And Vomiting Ondansetron HCl 4 mg 05/11/18 14:34 Zofran IV Q8H PRN Nausea And Vomiting Oxycodone/Acetaminophen 1 tab 05/11/18 18:28 05/14/18 09:01 Percocet 5/325 PO 1 tab Q6H PRN Administration Pain, Moderate (4-6) Pantoprazole Sodium 40 mg 05/12/18 10:00 05/14/18 08:59 Protonix IV 40 mg QDAY DAVIN Administration Promethazine HCl 25 mg 05/11/18 14:34 Phenergan ND Q6H PRN Nausea And Vomiting Quetiapine Fumarate 50 mg 05/11/18 19:00 05/13/18 21:33 Seroquel PO 50 mg Q12H DAVIN Administration Sevelamer Carbonate 2,400 mg 05/12/18 07:30 05/14/18 09:00 Renvela PO 2,400 mg AC DAVIN Administration Sodium Chloride 10 ml 05/11/18 14:34 05/12/18 13:00 Sodium Chloride Flush Syringe 10 Ml IV 10 ml PRN PRN Administration LINE FLUSH
--- NOTE | 2018-05-14 12:19 | Progress Note ---
Assessment and Plan Cultures: Blood culture 04/15/2018 MRSA Blood culture 04/17/2018 negative Blood culture 05/11/2018 [employer] 1 of 4 bottles and Strep salivarious 2 of 4 Urine culture 05/11/2018 neg Assessment: 62 y/o female with hypertension, congestive heart failure, ESRD on hemodialysis via left arm AVG, asthma, chronic right lower extremity DVT, seizure disorder, diabetes mellitus type 2, admitted on 04/15/2018 found to have acute mitral valve endocarditis secondary to MRSA bacteremia, was on IV Vancomycin post HD x 6 weeks end date: 05/29/2018, admitted due to AMS. 1) Shock: multifactorial ?septic +/- cardiogenic; patient with acute mitral valve endocarditis secondary to MRSA bacteremia, was on IV Vancomycin on HD. Possible brain emboli +/- acute heart failure/NSEMI +/- UTI. UA c/w UTI. Blood cultures 05/11/2018 [employer] 1 of 4 bottles likely a contaminant and S. salivarious ? real vs. contaminant, patient with a left AVG. CXR shows heart failure. Not better. Currently on levophed at 18 mcg/min with MAP=90 2) Acute UTI: urine cx no growth 3) Acute multifocal CVA: likely from MV endocarditis - CT head showed acute or subacute right parietal infarct. - MRI brain showed small multifocal areas of acute or subacute infarct as described. No evidence of intracranial hemorrhage. White matter disease. Mild mastoiditis. - MRA head no significant stenosis 4) Recent acute mitral valve endocarditis secondary to MRSA: patient receving IV Vancomycin on HD, no evidence of recurrent MRSA bacteremia so far, presumed left AVG infection as seen on WBC tagged scan - SASHA 04/20/2018 positive for mitral valve vegetation. Noted to have bilateral pulmonary nodules deemed to be bilateral septic emboli. - WBC tagged scan 04/27/2018 showed 2 subtle but suspicious areas of radiotracer accumulation are identified on the delayed images in the medial left arm and in the region of the right knee. - Plan was to continue IV Vancomycin post HD x 6 weeks, target pre-dialysis levels between 10-20 mcg/ml (end date: 05/29/2018). - Blood cx 05/11/2017 [employer] 1 of 4 bottles likely contaminant, S. salivarious 2 of 4 bottles 5) NSEMI 6) Acute encephalopathy: due to CVA - clinically improving Recommendations: - needs CT surgery eval due to acute multifocal CVA in the setting of MV endocarditis due to MRSA - continue ceftriaxone IV for UTI and Strep salivarious bacteremia - Vascular consult Dr Stephen schwarz AVG presumably infected per WBC tagged scan - continue vancomycin IV renally adjusted as blood culture remains negative for MRSA - follow-up blood cultures Strep MICs - repeat blood cultures today - repeat TTE - pending - adjust pressors requirement to optimal MAP on this setting per buckle coverer Dr Crespo will be rounding tomorrow Guarded prognosis Will follow up with you. Marilin Smith MD Infectious Diseases Courier [facility] ([facility]) M [phone] O [phone] Subjective Date of service: 05/14/18 Principal diagnosis: CVA Interval history: More alert, talking, unintelligible speech, still on levophed at 18 with MAP of 90, no fever. Objective - Exam Narrative Exam: General appearance: alert in NAD, unintelligible speech, on NC O2 Eyes: anicteric sclerae, moist conjunctivae; no lid-lag; PERRLA HENT: Atraumatic; oropharynx limited Neck: Trachea midline; supple, no thyromegaly or lymphadenopathy Lungs: CTA distant BS CV: tachycardic Abdomen: Soft, non-tender; no masses or hepatosplenomegaly Extremities: +shanon edema Skin: Normal temperature, turgor and texture; no rash, ulcers or subcutaneous nodules Psych: somnolent Neuro: somnolent non verbal Lines: right femoral TLC, left AVG - Constitutional Vitals: Vital Signs Temp Pulse Resp BP Pulse Ox 98.7 F 100 H 25 H 130/71 95 05/14/18 04:00 05/14/18 07:00 05/14/18 07:00 05/14/18 07:00 05/14/18 07:00 Temperature -Last 24 Hours Temperature 98.7 F Temperature 97.9 F Temperature 97.2 F Temperature 96.3 F - Labs CBC & Chem 7: 05/14/18 03:20 05/14/18 03:20 Labs: Abnormal lab results 05/14/18 05/14/18 Range/Units 03:20 03:20 Hgb 9.8 L (10.1-14.3) gm/dl MCH 24 L (28-32) pg RDW 23.8 H (13.2-15.2) % Lymph % (Auto) 11.8 L (13.4-35.0) % [place] % (Auto) 10.5 H (0.0-7.3) % Lymph # 1.1 L (1.2-5.4) K/mm3 [place] # 0.9 H (0.0-0.8) K/mm3 Seg Neutrophils % 75.9 H (40.0-70.0) % Chloride 96.8 L (98-107) mmol/L BUN 18 H (7-17) mg/dL Creatinine 3.2 H (0.7-1.2) mg/dL Glucose 115 H (65-100) mg/dL
--- NOTE | 2018-05-14 15:43 | Progress Note ---
Assessment and Plan Head CT shows acute to subacute ischemic insult suspected in right parietal lobe. Cardiology has been consulted for elevated troponin level. Pt denies any chest pain. ECG with SR, RBBB, no acute ischemic changes. Troponin elevation likely c/w NSTEMI type II. Do not recommend heparinization at this time in setting of CVA and recommend neurology consultation per primary. Wean vasopressors as tolerated. Patient is in S.R. 05/14/2018>VS are stable,cardiac status in stable. - Patient Problems (1) Anemia Current Visit: Yes Status: Acute (2) CVA (cerebral vascular accident) Current Visit: Yes Status: Acute Qualifiers: Precerebral and cerebral artery: posterior cerebral artery (3) NSTEMI (non-ST elevated myocardial infarction) Current Visit: Yes Status: Acute (4) UTI (urinary tract infection) Current Visit: Yes Status: Acute Qualifiers: (5) ASD (atrial septal defect) Current Visit: Yes Status: Chronic Subjective Date of service: 05/14/18 Principal diagnosis: CVA Interval history: Patient is comfortable,in no distress. Objective Vital Signs Temp Pulse Resp BP Pulse Ox 05/14/18 07:00 100 H 25 H 130/71 95 05/14/18 06:50 104 H 19 130/69 96 05/14/18 06:40 101 H 22 131/77 97 05/14/18 06:30 114 H 27 H 131/77 95 05/14/18 06:20 111 H 23 128/77 97 05/14/18 06:10 114 H 24 122/74 95 05/14/18 06:00 111 H 16 122/74 96 05/14/18 05:50 114 H 21 127/69 95 05/14/18 05:40 116 H 21 108/70 96 05/14/18 05:30 92 H 18 126/76 97 05/14/18 05:20 100 H 18 126/76 96 05/14/18 05:10 100 H 22 125/73 96 05/14/18 05:00 100 H 18 125/73 96 05/14/18 04:50 96 H 17 123/69 96 05/14/18 04:40 99 H 18 115/72 96 05/14/18 04:30 116 H 13 115/72 96 05/14/18 04:20 116 H 14 117/68 96 05/14/18 04:10 116 H 18 117/68 96 05/14/18 04:00 98.7 F 116 H 13 117/68 95 05/14/18 03:50 116 H 24 124/71 96 05/14/18 03:40 115 H 21 122/63 96 05/14/18 03:30 92 H 21 122/63 95 05/14/18 03:20 92 H 20 124/73 95 05/14/18 03:10 96 H 24 122/73 95 05/14/18 03:00 115 H 18 122/73 05/14/18 02:50 116 H 22 124/73 95 05/14/18 02:40 115 H 15 126/71 95 05/14/18 02:30 116 H 18 126/71 05/14/18 02:20 116 H 26 H 96/56 95 05/14/18 02:10 115 H 26 H 96/56 95 05/14/18 02:00 113 H 13 112/63 95 05/14/18 01:50 113 H 24 112/63 94 05/14/18 01:40 115 H 15 119/70 95 05/14/18 01:30 99 H 28 H 119/70 94 05/14/18 01:20 93 H 12 114/68 94 05/14/18 01:10 97 H 19 112/63 95 05/14/18 01:00 103 H 21 112/63 05/14/18 00:50 116 H 14 112/65 95 05/14/18 00:40 115 H 14 112/64 94 05/14/18 00:30 117 H 21 112/64 93 05/14/18 00:20 117 H 24 106/59 94 05/14/18 00:10 97 H 16 102/59 93 05/14/18 00:00 97.9 F 102 H 25 H 102/59 92 05/13/18 23:50 104 H 20 101/55 94 05/13/18 23:40 95 H 23 98/48 93 05/13/18 23:30 110 H 13 98/48 90 05/13/18 23:20 106 H 24 100/50 94 05/13/18 23:10 116 H 15 93/48 93 05/13/18 23:00 116 H 22 97/50 93 05/13/18 22:50 116 H 22 97/50 93 05/13/18 22:40 102 H 19 96/51 93 05/13/18 22:30 98 H 18 96/51 94 05/13/18 22:22 98 H 19 95/49 95 05/13/18 22:20 101 H 17 95/49 94 05/13/18 22:12 100 H 17 99/54 97 05/13/18 22:10 114 H 25 H 99/54 97 05/13/18 22:00 113 H 15 109/66 96 05/13/18 21:50 96 H 13 109/66 97 05/13/18 21:40 98 H 16 127/67 92 05/13/18 21:30 96 H 17 129/69 98 05/13/18 21:20 114 H 16 129/76 98 05/13/18 21:10 96 H 13 127/67 97 05/13/18 21:00 93 H 11 L 127/67 97 05/13/18 20:50 94 H 11 L 124/62 97 05/13/18 20:40 94 H 11 L 118/64 97 05/13/18 20:30 95 H 11 L 129/66 96 05/13/18 20:20 94 H 15 120/64 96 05/13/18 20:10 94 H 14 118/64 97 05/13/18 20:00 97.2 F L 95 H 13 118/64 96 05/13/18 19:50 96 H 11 L 107/62 96 05/13/18 19:40 100 H 18 117/63 98 05/13/18 19:30 96 H 18 117/63 97 05/13/18 19:20 110 H 22 120/65 96 05/13/18 19:10 109 H 19 116/61 96 05/13/18 19:00 92 H 12 116/61 95 05/13/18 18:50 92 H 13 120/60 97 05/13/18 18:40 91 H 13 113/53 97 05/13/18 18:30 96 H 15 126/67 97 05/13/18 18:20 91 H 19 130/74 05/13/18 18:10 114 H 11 L 113/53 05/13/18 18:00 95 H 9 L 113/53 05/13/18 17:50 92 H 9 L 126/48 97 05/13/18 17:40 92 H 10 L 127/58 95 01/12/19 17:30 103 H 12 105/51 98 05/13/18 17:20 111 H 10 L 105/51 96 05/13/18 17:10 93 H 10 L 107/52 96 05/13/18 17:00 110 H 10 L 107/52 96 05/13/18 16:50 111 H 10 L 107/55 97 05/13/18 16:40 111 H 11 L 106/54 97 05/13/18 16:30 112 H 10 L 103/55 97 05/13/18 16:20 94 H 11 L 100/46 97 05/13/18 16:10 110 H 10 L 106/54 97 05/13/18 16:00 96 H 11 L 106/54 96 05/13/18 15:50 92 H 11 L 101/51 97 - Physical Examination General: Other (lethargic ) Neck: Positive: neck supple, trachea midline Cardiac: Positive: Reg Rate and Rhythm Lungs: Positive: Normal Breath Sounds Neuro: Positive: Other (lethargic) Abdomen: Positive: Unremarkable Musculoskeletal: No Pain Extremities: Absent: edema - Labs and Meds CBC 05/14/18 Range/Units 03:20 WBC 9.1 (4.5-11.0) K/mm3 RBC 4.10 (3.65-5.03) M/mm3 Hgb 9.8 L (10.1-14.3) gm/dl Hct 32.5 (30.3-42.9) % Plt Count 313 D (140-440) K/mm3 Lymph # 1.1 L (1.2-5.4) K/mm3 Howard # 0.9 H (0.0-0.8) K/mm3 Eos # 0.1 (0.0-0.4) K/mm3 Baso # 0.1 (0.0-0.1) K/mm3 Comprehensive Metabolic Panel 05/14/18 Range/Units 03:20 Sodium 138 (137-145) mmol/L Potassium 4.1 D (3.6-5.0) mmol/L Chloride 96.8 L (98-107) mmol/L Carbon Dioxide 26 (22-30) mmol/L BUN 18 H (7-17) mg/dL Creatinine 3.2 H (0.7-1.2) mg/dL Glucose 115 H (65-100) mg/dL Calcium 8.9 (8.4-10.2) mg/dL - Imaging and Cardiology EKG: report reviewed, image reviewed Echo: report reviewed (TTE done 04/17/2018 showed EF 55-60%, RA severely dilated, mild to mod TR, trace MR, RV severely dilated, RV systolic function mod to severely reduced, severe pulm HTN with RVSP 67mmHg. SASHA 04/20/2018: endocarditis involving the posterior mitral valve leaflet, atrial septal defect with severe right heart enlargement and severe right ventricular dysfunction, severe pulmonary hypertension) - EKG Sinus rhythms and dysrhythmias: sinus rhythm AV and intraventricular conduction: right bundle branch block
[2018-05-14] MEDS: SODIUM CHLORIDE FLUSH SYRINGE 10 ML IV PRN (21:01)
[2018-05-14] MEDS ORDERED: NACL 0.9% 1000 ML 1,000 ML ONE ×2 (22:59→23:00)
[2018-05-15 00:13] LABS: Albumin 2.6 g/dL (3.9-5); Calcium 8.9 mg/dL (8.4-10.2)
[2018-05-15] MEDS: LEVOPHED DRIP 4 MG/NS 250 ML 4 MG/250 ML BAG IV SCH ×6 (00:25→19:32)
[2018-05-15] MEDS ORDERED: NACL 0.9% 1000 ML 1,000 ML IV ONE (02:44)
[2018-05-15 05:40] LABS: Basophils # (Auto) 0.1 K/mm3 (0.0-0.1); Basophils % (Auto) 0.8 % (0.0-1.8); Eosinophils # (Auto) 0.1 K/mm3 (0.0-0.4); Eosinophils % (Auto) 0.8 % (0.0-4.3); Hematocrit 34.9 % (30.3-42.9); Hemoglobin 10.6 gm/dl (10.1-14.3); Lymphocytes # (Auto) 1.4 K/mm3 (1.2-5.4); Lymphocytes % (Auto) 14.2 % (13.4-35.0); Mean Corpuscular HGB Conc 30 % (30-34); Mean Corpuscular Volume 80 fl (79-97); Platelet Count 333 K/mm3 (140-440); Red Blood Count 4.36 M/mm3 (3.65-5.03); Red Cell Distribution Width 23.5 % (13.2-15.2)
[2018-05-15 05:59] LABS: Calcium 9.3 mg/dL (8.4-10.2)
[2018-05-15] MEDS: RENVELA PO SCH ×3 (09:19→19:30)
[2018-05-15] MEDS: ASPIRIN PO SCH (09:19)
[2018-05-15] MEDS: FEOSOL PO SCH ×2 (09:20→21:50)
[2018-05-15] MEDS: KEPPRA PO SCH ×2 (09:20→21:50)
[2018-05-15] MEDS: PROzac PO SCH (09:20)
[2018-05-15] MEDS: NEURONTIN PO SCH ×2 (09:20→21:50)
--- NOTE | 2018-05-15 09:21 | Progress Note ---
Assessment and Plan 1. ESRD: Continue hemodialysis three times a week, TTS schedule. 2. Hyperkalemia: Improved after HD. 3. Hypotension: On Levophed. 4. NSTEMI: Followed by Cards. 5. CVA. 6. H/o MRSA bacteremia: On Vancomycin. 7. Encephalopathy. Subjective Date of service: 05/15/18 Principal diagnosis: CVA Interval history: Patient was seen and examined at the bedside. Objective - Vital Signs Vital signs: Vital Signs - 12hr 05/14/18 05/14/18 05/14/18 21:30 21:40 21:50 Temperature Pulse Rate 133 H 110 H 115 H Pulse Rate [ Right Dorsalis Pedis] Respiratory 14 13 14 Rate Blood Pressure 85/40 86/47 96/50 O2 Sat by Pulse 89 91 91 Oximetry 05/14/18 05/14/18 05/14/18 22:00 22:10 22:20 Temperature Pulse Rate 130 H 114 H 111 H Pulse Rate [ Right Dorsalis Pedis] Respiratory 14 14 15 Rate Blood Pressure 92/45 92/45 82/37 O2 Sat by Pulse 90 91 90 Oximetry 05/14/18 05/14/18 05/14/18 22:30 22:40 22:50 Temperature Pulse Rate 123 H 115 H 113 H Pulse Rate [ Right Dorsalis Pedis] Respiratory 15 16 13 Rate Blood Pressure 84/42 84/42 92/45 O2 Sat by Pulse 90 91 92 Oximetry 05/14/18 05/14/18 05/14/18 23:00 23:10 23:20 Temperature Pulse Rate 112 H 113 H 113 H Pulse Rate [ Right Dorsalis Pedis] Respiratory 17 16 15 Rate Blood Pressure 71/37 106/59 67/34 O2 Sat by Pulse 94 93 96 Oximetry 05/14/18 05/14/18 05/14/18 23:30 23:40 23:45 Temperature Pulse Rate 112 H 113 H 115 H Pulse Rate [ Right Dorsalis Pedis] Respiratory 13 12 13 Rate Blood Pressure 135/79 135/79 140/76 O2 Sat by Pulse 98 98 Oximetry 05/14/18 05/14/18 05/15/18 23:50 23:56 00:00 Temperature 99.0 F Pulse Rate 112 H 114 H 115 H Pulse Rate [ 136 H Right Dorsalis Pedis] Respiratory 11 L 12 13 Rate Blood Pressure 139/83 139/83 133/71 O2 Sat by Pulse 97 97 Oximetry 05/15/18 05/15/18 05/15/18 00:10 00:20 00:30 Temperature Pulse Rate 112 H 112 H 113 H Pulse Rate [ Right Dorsalis Pedis] Respiratory 13 13 13 Rate Blood Pressure 133/71 133/71 150/89 O2 Sat by Pulse 97 97 98 Oximetry 05/15/18 05/15/18 05/15/18 00:40 00:50 01:00 Temperature Pulse Rate 114 H 112 H 109 H Pulse Rate [ Right Dorsalis Pedis] Respiratory 19 13 10 L Rate Blood Pressure 150/89 123/70 120/66 O2 Sat by Pulse 96 96 Oximetry 05/15/18 05/15/18 05/15/18 01:10 01:20 01:23 Temperature 97.4 F L Pulse Rate 109 H 108 H Pulse Rate [ Right Dorsalis Pedis] Respiratory 12 11 L Rate Blood Pressure 120/66 117/67 O2 Sat by Pulse 96 84 Oximetry 05/15/18 05/15/18 05/15/18 01:30 01:40 01:50 Temperature Pulse Rate 109 H 108 H 107 H Pulse Rate [ Right Dorsalis Pedis] Respiratory 11 L 10 L 10 L Rate Blood Pressure 136/74 129/77 142/85 O2 Sat by Pulse 96 96 96 Oximetry 05/15/18 05/15/18 05/15/18 02:00 02:17 02:20 Temperature Pulse Rate 107 H 107 H 106 H Pulse Rate [ Right Dorsalis Pedis] Respiratory 11 L 12 13 Rate Blood Pressure 147/81 O2 Sat by Pulse 97 96 97 Oximetry 05/15/18 05/15/18 05/15/18 02:30 02:40 02:50 Temperature Pulse Rate 107 H 107 H 104 H Pulse Rate [ Right Dorsalis Pedis] Respiratory 11 L 12 12 Rate Blood Pressure 125/78 125/78 132/77 O2 Sat by Pulse 99 96 80 L Oximetry 05/15/18 05/15/18 05/15/18 03:00 03:10 03:20 Temperature Pulse Rate 107 H 105 H 105 H Pulse Rate [ Right Dorsalis Pedis] Respiratory 10 L 10 L 11 L Rate Blood Pressure 124/80 124/80 132/78 O2 Sat by Pulse 99 98 97 Oximetry 05/15/18 05/15/18 05/15/18 03:30 03:40 03:50 Temperature Pulse Rate 106 H 104 H 106 H Pulse Rate [ Right Dorsalis Pedis] Respiratory 11 L 12 10 L Rate Blood Pressure 124/82 124/82 125/79 O2 Sat by Pulse 97 96 95 Oximetry 05/15/18 05/15/18 05/15/18 03:55 04:00 04:10 Temperature 98.1 F Pulse Rate 106 H 108 H Pulse Rate [ 112 H Right Dorsalis Pedis] Respiratory 15 13 Rate Blood Pressure 137/93 125/79 O2 Sat by Pulse 86 88 Oximetry 05/15/18 05/15/18 05/15/18 04:20 04:30 04:40 Temperature Pulse Rate 108 H 110 H 108 H Pulse Rate [ Right Dorsalis Pedis] Respiratory 14 12 12 Rate Blood Pressure 139/84 142/84 139/84 O2 Sat by Pulse 85 93 94 Oximetry 05/15/18 05/15/18 05/15/18 04:50 05:00 05:10 Temperature Pulse Rate 106 H 108 H 108 H Pulse Rate [ Right Dorsalis Pedis] Respiratory 12 16 12 Rate Blood Pressure 138/86 136/92 136/92 O2 Sat by Pulse 94 96 98 Oximetry 05/15/18 05/15/18 05/15/18 05:20 05:30 05:40 Temperature Pulse Rate 108 H 111 H 126 H Pulse Rate [ Right Dorsalis Pedis] Respiratory 14 13 13 Rate Blood Pressure 127/91 135/87 135/87 O2 Sat by Pulse 97 97 97 Oximetry 05/15/18 05/15/18 05/15/18 05:50 06:00 06:10 Temperature Pulse Rate 127 H 126 H 125 H Pulse Rate [ Right Dorsalis Pedis] Respiratory 11 L 12 12 Rate Blood Pressure 147/90 154/90 154/90 O2 Sat by Pulse 98 99 100 Oximetry 05/15/18 05/15/18 05/15/18 06:20 06:30 06:40 Temperature Pulse Rate 125 H 126 H 124 H Pulse Rate [ Right Dorsalis Pedis] Respiratory 13 13 12 Rate Blood Pressure 160/88 160/88 129/84 O2 Sat by Pulse 96 97 98 Oximetry 05/15/18 05/15/18 05/15/18 06:50 07:00 07:10 Temperature Pulse Rate 125 H 125 H 125 H Pulse Rate [ Right Dorsalis Pedis] Respiratory 13 12 14 Rate Blood Pressure 142/85 140/86 140/86 O2 Sat by Pulse 99 78 L Oximetry 05/15/18 05/15/18 05/15/18 07:20 07:30 07:40 Temperature Pulse Rate 128 H 128 H 130 H Pulse Rate [ Right Dorsalis Pedis] Respiratory 16 14 13 Rate Blood Pressure 138/81 138/81 128/72 O2 Sat by Pulse 95 94 Oximetry 05/15/18 05/15/18 05/15/18 07:50 08:00 08:10 Temperature Pulse Rate 127 H 127 H 131 H Pulse Rate [ 112 H Right Dorsalis Pedis] Respiratory 13 14 17 Rate Blood Pressure 131/89 135/90 135/90 O2 Sat by Pulse 98 Oximetry 05/15/18 05/15/18 05/15/18 08:20 08:30 08:40 Temperature Pulse Rate 126 H 127 H 127 H Pulse Rate [ Right Dorsalis Pedis] Respiratory 12 16 16 Rate Blood Pressure 144/87 144/87 144/87 O2 Sat by Pulse 100 99 100 Oximetry - General Appearance General appearance: well-developed, appears stated age, other (not in distress) EENT: ATNC, PERRL Neck: supple Respiratory: Present: Clear to Ascultation Cardiology: regular, tachycardia, S1S2, no murmurs Gastrointestinal: normoactive bowel sounds, no tenderness, no distended Integumentary: no rash Neurologic: other (not following any command, not answering questions) Musculoskeletal: other (extremity edema noted, left arm AVG) - Lab 05/15/18 04:40 05/15/18 04:40 Most recent lab results Calcium 9.3 mg/dL (8.4-10.2) 05/15/18 04:40 Magnesium 2.00 mg/dL (1.7-2.3) 05/14/18 23:30 Medications & Allergies - Medications Allergies/Adverse Reactions: Allergies codeine Allergy (Verified 03/04/16 15:27) Rash Sulfa (Sulfonamide Antibiotics) Allergy (Verified 03/04/16 15:27) Rash Home Medications: Home Medications Medication Instructions Recorded Confirmed Last Taken Type Albuterol Sulfate [Ventolin HFA] 2 puff IH Q4H PRN 03/31/16 05/11/18 04/14/18 10:00 History Esomeprazole Magnesium [NexIUM] 40 mg PO QDAY #30 capsule. 03/30/18 05/11/18 04/14/18 10:00 Rx Gabapentin [Neurontin] 100 mg PO Q12HR capsule 05/01/18 05/11/18 Unknown Rx Sevelamer Carbonate [Renvela] 2,400 mg PO AC tablet 05/01/18 05/11/18 Unknown Rx levETIRAcetam [Keppra TAB] 500 mg PO BID tablet 05/01/18 05/11/18 Unknown Rx oxyCODONE /ACETAMINOPHEN [Percocet 1 tab PO Q6H PRN #30 tablet 05/01/18 05/11/18 Unknown Rx 5/325 mg] ALBUTEROL NEB's [Proventil] 2.5 mg IH Q6H PRN 05/11/18 05/11/18 Unknown History Acetaminophen [Tylenol] 650 mg PO Q4H PRN 05/11/18 05/11/18 Unknown History Acetaminophen [Tylenol] 650 mg PO Q4H PRN 05/11/18 05/11/18 Unknown History FLUoxetine [PROzac] 20 mg PO QDAY 05/11/18 05/11/18 Unknown History Ferrous Sulfate [Iron] 325 mg PO BID 05/11/18 05/11/18 Unknown History Hydroxyzine HCl [hydrOXYzine] 50 mg PO Q12H PRN 05/11/18 05/11/18 Unknown History Quetiapine Fumarate [SEROquel] 50 mg PO Q12H 05/11/18 05/11/18 Unknown History clonazePAM [Clonazepam] 1 mg PO Q12H PRN 05/11/18 05/11/18 Unknown History Active Medications: Generic Name Dose Route Start Last Admin Trade Name Freq PRN Reason Stop Dose Admin Acetaminophen 650 mg 05/11/18 18:28 Tylenol PO Q4H PRN Fever >101 Albuterol 2.5 mg 05/11/18 14:34 Proventil IH Q3HRT PRN Shortness Of Breath Aspirin 325 mg 05/12/18 10:00 05/14/18 09:20 Aspirin PO 325 mg QDAY DAVIN Administration Atorvastatin Calcium 40 mg 05/11/18 22:00 05/14/18 21:00 Lipitor PO 40 mg QHS DAVIN Administration Bisacodyl 10 mg 05/11/18 14:34 Dulcolax HI QDAY PRN Constipation Clonazepam 1 mg 05/11/18 19:00 05/14/18 20:00 Klonopin PO 1 mg Q12H DAVIN Administration Epoetin Jt 20,000 unit 05/12/18 08:46 05/13/18 14:56 Procrit SUB-Q 20,000 unit MYAH PRN Administration hemodialysis Ferrous Sulfate 325 mg 05/11/18 22:00 05/14/18 22:01 Feosol PO 325 mg BID DAVIN Administration Fluoxetine HCl 20 mg 05/12/18 10:00 05/14/18 09:20 Prozac PO 20 mg QDAY [facility] Administration Gabapentin 100 mg 05/11/18 22:00 05/14/18 20:59 Neurontin PO 100 mg Q12HR DAVIN Administration Hydroxyzine HCl 50 mg 05/11/18 22:00 Atarax PO Q12H PRN Itching Norepinephrine 4 mg in 250 mls @ 7.5 mls/hr 05/11/18 13:00 05/15/18 06:10 Levophed Drip 4 Mg/Ns 250 Ml IV 18 mcg/min TITR DAVIN 67.5 mls/hr Titration Protocol 2 MCG/MIN Sodium Chloride 100 mls @ 999 mls/hr 05/13/18 09:07 Nacl 0.9% IV MYAH PRN Hypotension Ceftriaxone Sodium 1 gm in 50 mls @ 100 mls/hr 05/13/18 21:00 05/14/18 12:04 Rocephin/Ns 1 Gm/50 Ml IV 100 mls/hr Q24HR DAVIN Administration Protocol Levetiracetam 500 mg 05/11/18 22:00 05/14/18 21:00 Keppra PO 500 mg BID [facility] Administration Magnesium Hydroxide 30 ml 05/11/18 14:34 Milk Of Magnesia PO Q4H PRN Constipation Metoclopramide HCl 10 mg 05/11/18 14:34 Reglan PO Q6H PRN Nausea And Vomiting Ondansetron HCl 4 mg 05/11/18 14:34 Zofran IV Q8H PRN Nausea And Vomiting Oxycodone/Acetaminophen 1 tab 05/11/18 18:28 05/14/18 09:01 Percocet 5/325 PO 1 tab Q6H PRN Administration Pain, Moderate (4-6) Pantoprazole Sodium 40 mg 05/15/18 10:00 Protonix PO DAILY DAVIN Promethazine HCl 25 mg 05/11/18 14:34 Phenergan HI Q6H PRN Nausea And Vomiting Quetiapine Fumarate 50 mg 05/11/18 19:00 05/14/18 20:00 Seroquel PO 50 mg Q12H DAVIN Administration Sevelamer Carbonate 2,400 mg 05/12/18 07:30 05/14/18 19:48 Renvela PO Not Given AC DAVIN Sodium Chloride 10 ml 05/11/18 14:34 05/14/18 21:01 Sodium Chloride Flush Syringe 10 Ml IV 10 ml PRN PRN Administration LINE FLUSH
[2018-05-15] MEDS: ROCEPHIN/NS 1 GM/50 ML 1 GM/50 ML BAG IV SCH (09:35)
[2018-05-15] MEDS ORDERED: PROTONIX PO SCH (10:00)
--- NOTE | 2018-05-15 10:06 | Progress Note ---
Addendum entered and electronically signed by YUE CAMPOS MD 05/15/18 11:22: Acute CVA Likley sequele of Endocarditis Hypotension on levophed gtt History of MRSA bacteremia/mitral valve endocarditis continue on vancomycin after dialysis with targets levels between 10-20 until 05/29/2018. RLE DVT ESRD COPD/chronic hypoxic respiratory failure Seizure disorder Bipolar disorder TTE done 04/17/2018 showed EF 55-60%, RA severely dilated, mild to mod TR, trace MR, RV severely dilated, RV systolic function mod to severely reduced, severe pulm HTN with RVSP 67mmHg. Original Note: Assessment and Plan Head CT shows acute to subacute ischemic insult suspected in right parietal lobe. Brain MRI shows small multifocal areas of acute or subacute infarcts. Cardiology has been consulted for elevated troponin level. Pt denies any chest pain. ECG with SR, RBBB, no acute ischemic changes. Troponin elevation likely c/w NSTEMI type II. Do not recommend heparinization at this time in setting of CVA and recommend neurology consultation per primary. Currently stable cardiac status, weaned off vasopressors. The patient has been seen in conjunction with Dr. Campos who agrees with the assessment and plan of care. 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 (8) ASD (atrial septal defect) Current Visit: Yes Status: Chronic (9) End stage renal disease on dialysis Current Visit: Yes Status: Chronic (10) COPD (chronic obstructive pulmonary disease) Current Visit: Yes Status: Chronic (11) Moderate to severe pulmonary hypertension Current Visit: Yes Status: Chronic (12) History of DVT (deep vein thrombosis) Current Visit: Yes Status: Chronic (13) Anemia Current Visit: Yes Status: Acute (14) Psychiatric disorder Current Visit: Yes Status: Chronic Subjective Date of service: 05/15/18 Principal diagnosis: CVA Interval history: pt resting in bed, intermittently confused. off levophed gtt. in ST on telemetry. Objective Last Vital Signs Temp 98.1 F 05/15/18 03:55 Pulse 127 H 05/15/18 08:40 Resp 16 05/15/18 08:40 BP 144/87 05/15/18 08:40 Pulse Ox 100 05/15/18 08:40 - Physical Examination General: Other (intermittently confused) Neck: Positive: neck supple, trachea midline Cardiac: Positive: Regular Rhythm, S1/S2 Lungs: Positive: Decreased Breath Sounds Neuro: Positive: Other (lethargic) Abdomen: Positive: Unremarkable Musculoskeletal: No Pain Extremities: Absent: edema - Labs and Meds Cardiac Enzymes 05/14/18 Range/Units 23:30 AST 46 H (5-40) units/L CBC 05/15/18 Range/Units 04:40 WBC 9.9 (4.5-11.0) K/mm3 RBC 4.36 (3.65-5.03) M/mm3 Hgb 10.6 (10.1-14.3) gm/dl Hct 34.9 (30.3-42.9) % Plt Count 333 (140-440) K/mm3 Lymph # 1.4 (1.2-5.4) K/mm3 Pickett # 1.0 H (0.0-0.8) K/mm3 Eos # 0.1 (0.0-0.4) K/mm3 Baso # 0.1 (0.0-0.1) K/mm3 Comprehensive Metabolic Panel 05/14/18 05/15/18 Range/Units 23:30 04:40 Sodium 135 L 140 (137-145) mmol/L Potassium 5.4 H D 3.7 D (3.6-5.0) mmol/L Chloride 97.9 L 98.0 (98-107) mmol/L Carbon Dioxide 22 25 (22-30) mmol/L BUN 20 H 21 H (7-17) mg/dL Creatinine 3.6 H 3.8 H (0.7-1.2) mg/dL Glucose 94 102 H (65-100) mg/dL Calcium 8.9 9.3 (8.4-10.2) mg/dL AST 46 H (5-40) units/L ALT 11 (7-56) units/L Alkaline Phosphatase 65 (35-129) units/L Total Protein 6.2 L (6.3-8.2) g/dL Albumin 2.6 L (3.9-5) g/dL - Imaging and Cardiology EKG: report reviewed, image reviewed Echo: report reviewed (TTE done 04/17/2018 showed EF 55-60%, RA severely dilated, mild to mod TR, trace MR, RV severely dilated, RV systolic function mod to severely reduced, severe pulm HTN with RVSP 67mmHg. SASHA 04/20/2018: endocarditis involving the posterior mitral valve leaflet, atrial septal defect with severe right heart enlargement and severe right ventricular dysfunction, severe pulmonary hypertension) - EKG Sinus rhythms and dysrhythmias: sinus rhythm AV and intraventricular conduction: right bundle branch block
--- NOTE | 2018-05-15 11:36 | Progress Note ---
Assessment and Plan Assessment and plan: CVA. Head CT shows acute to subacute ischemic insult suspected in right parietal lobe. MRI brain showed small multifocal areas of acute and subacute infarct. No evidence of intracranial hemorrhage. MRA head with no significant stenosis. Etiology likely secondary to mitral valve endocarditis. Continue antiplatelet therapy and follow-up lipid panel. PT/OT/ST NSTEMI type II. Patient with troponin elevation consistent with type II PR. Cardiology following. ECG with SR, RBBB, no acute ischemic changes. Septic shock. Etiology secondary to acute mitral valve endocarditis secondary to MRSA bacteremia. Blood cultures from 05/11/17 revealed INVENTORY SPECIALIST which is most likely a contaminant. Continue pressors to maintain MAP greater than 65. Wean as tolerated. Recent acute mitral valve endocarditis secondary to MRSA. Patient receiving IV vancomycin on hemodialysis. Blood cultures did not show any evidence of recurrent MRSA bacteremia. - SASHA 04/20/2018 positive for mitral valve vegeta tion. Noted to have bilateral pulmonary nodules deemed to be bilateral septic emboli. - WBC tagged scan 04/27/2018 showed 2 subtle but suspicious areas of radiotracer accumulation are identified on the delayed images in the medial left arm and in the region Repeat TTE pending. Acute encephalopathy. Etiology secondary to above--CVA/toxic metabolic causes. ESRD. Continue hemodialysis per nephrology. UTI. Urinalysis consistent with UTI. Follow-up urine cultures. Continue R ocephin. History of chronic right lower extremity DVT. PTSD. Hyperkalemia. Patient had hemodialysis today. Volume overload. UF with Hemodialysis today. History Interval history: 62 y/o female with hypertension, congestive heart failure, ESRD on hemodialysis, asthma, chronic right lower extremity DVT, seizure disorder, diabetes mellitus type 2, admitted on 04/15/2018 found to have acute mitral valve endocarditis secondary to MRSA bacteremia, was on IV Vancomycin post HD x 6 weeks end date: 05/29/2018, admitted due to AMS. Patient is confused and somnolent this a.m. Hospitalist Physical - Constitutional Vitals: Temp Pulse Resp BP Pulse Ox 98.1 F 127 H 16 144/87 100 05/15/18 03:55 05/15/18 08:40 05/15/18 08:40 05/15/18 08:40 05/15/18 08:40 General appearance: Present: no acute distress, obese, disheveled - EENT Eyes: Present: PERRL, EOM intact ENT: hearing intact, clear oral mucosa, dentition normal - Neck Neck: Present: supple, normal ROM - Respiratory Respiratory effort: normal Respiratory: bilateral: CTA - Cardiovascular Rhythm: regular Heart Sounds: Present: S1 & S2. Absent: gallop, rub - Extremities Extremities: no ischemia, No edema, Full ROM - Abdominal General gastrointestinal: soft, non-tender, non-distended, normal bowel sounds - Integumentary Integumentary: Present: clear, warm, dry - Neurologic Neurologic: CNII-XII intact, moves all extremities Results - Labs CBC & Chem 7: 05/15/18 04:40 05/15/18 04:40 Labs: Laboratory Last Values WBC 9.9 K/mm3 (4.5-11.0) 05/15/18 04:40 RBC 4.36 M/mm3 (3.65-5.03) 05/15/18 04:40 Hgb 10.6 gm/dl (10.1-14.3) 05/15/18 04:40 Hct 34.9 % (30.3-42.9) 05/15/18 04:40 MCV 80 fl (79-97) 05/15/18 04:40 MCH 24 pg (28-32) L 05/15/18 04:40 MCHC 30 % (30-34) 05/15/18 04:40 RDW 23.5 % (13.2-15.2) H 05/15/18 04:40 Plt Count 333 K/mm3 (140-440) 05/15/18 04:40 Lymph % (Auto) 14.2 % (13.4-35.0) 05/15/18 04:40 [place] % (Auto) 10.0 % (0.0-7.3) H 05/15/18 04:40 Eos % (Auto) 0.8 % (0.0-4.3) 05/15/18 04:40 Baso % (Auto) 0.8 % (0.0-1.8) 05/15/18 04:40 Lymph # 1.4 K/mm3 (1.2-5.4) 05/15/18 04:40 [place] # 1.0 K/mm3 (0.0-0.8) H 05/15/18 04:40 Eos # 0.1 K/mm3 (0.0-0.4) 05/15/18 04:40 Baso # 0.1 K/mm3 (0.0-0.1) 05/15/18 04:40 Add Manual Diff Complete 05/13/18 04:39 Total Counted 100 05/13/18 04:39 Seg Neutrophils % 74.2 % (40.0-70.0) H 05/15/18 04:40 Seg Neuts % (Manual) 82.0 % (40.0-70.0) H 05/13/18 04:39 Band Neutrophils % 5.0 % 05/13/18 04:39 Lymphocytes % (Manual) 11.0 % (13.4-35.0) L 05/13/18 04:39 Reactive Lymphs % (Man) 0 % 05/13/18 04:39 Monocytes % (Manual) 2.0 % (0.0-7.3) 05/13/18 04:39 Eosinophils % (Manual) 0 % (0.0-4.3) 05/13/18 04:39 Basophils % (Manual) 0 % (0.0-1.8) 05/13/18 04:39 Metamyelocytes % 0 % 05/13/18 04:39 Myelocytes % 0 % 05/13/18 04:39 Promyelocytes % 0 % 05/13/18 04:39 Blast Cells % 0 % 05/13/18 04:39 Nucleated RBC % Not Reportable 05/13/18 04:39 Seg Neutrophils # 7.4 K/mm3 (1.8-7.7) 05/15/18 04:40 Seg Neutrophils # Man 7.5 K/mm3 (1.8-7.7) 05/13/18 04:39 Band Neutrophils # 0.5 K/mm3 05/13/18 04:39 Lymphocytes # (Manual) 1.0 K/mm3 (1.2-5.4) L 05/13/18 04:39 Abs React Lymphs (Man) 0.0 K/mm3 05/13/18 04:39 Monocytes # (Manual) 0.2 K/mm3 (0.0-0.8) 05/13/18 04:39 Eosinophils # (Manual) 0.0 K/mm3 (0.0-0.4) 05/13/18 04:39 Basophils # (Manual) 0.0 K/mm3 (0.0-0.1) 05/13/18 04:39 Metamyelocytes # 0.0 K/mm3 05/13/18 04:39 Myelocytes # 0.0 K/mm3 05/13/18 04:39 Promyelocytes # 0.0 K/mm3 05/13/18 04:39 Blast Cells # 0.0 K/mm3 05/13/18 04:39 WBC Morphology Not Reportable 05/13/18 04:39 Hypersegmented Neuts Not Reportable 05/13/18 04:39 Hyposegmented Neuts Not Reportable 05/13/18 04:39 Hypogranular Neuts Not Reportable 05/13/18 04:39 Smudge Cells Not Reportable 05/13/18 04:39 Toxic Granulation Not Reportable 05/13/18 04:39 Toxic Vacuolation Not Reportable 05/13/18 04:39 Dohle Bodies Not Reportable 05/13/18 04:39 Pelger-Huet Anomaly Not Reportable 05/13/18 04:39 Shazia Rods Not Reportable 05/13/18 04:39 Platelet Estimate Consistent w auto 05/13/18 04:39 Clumped Platelets Not Reportable 05/13/18 04:39 Plt Clumps, EDTA Not Reportable 05/13/18 04:39 Large Platelets Not Reportable 05/13/18 04:39 Giant Platelets Not Reportable 05/13/18 04:39 Platelet Satelliting Not Reportable 05/13/18 04:39 Plt Morphology Comment Not Reportable 05/13/18 04:39 RBC Morphology Not Reportable 05/13/18 04:39 Dimorphic RBCs Not Reportable 05/13/18 04:39 Polychromasia Not Reportable 05/13/18 04:39 Hypochromasia 1+ 05/13/18 04:39 Poikilocytosis Not Reportable 05/13/18 04:39 Anisocytosis 2+ 05/13/18 04:39 Microcytosis Not Reportable 05/13/18 04:39 Macrocytosis Not Reportable 05/13/18 04:39 Spherocytes Not Reportable 05/13/18 04:39 Pappenheimer Bodies Not Reportable 05/13/18 04:39 Sickle Cells Not Reportable 05/13/18 04:39 Target Cells Not Reportable 05/13/18 04:39 Tear Drop Cells 1+ 05/13/18 04:39 Ovalocytes 2+ 05/13/18 04:39 Helmet Cells Not Reportable 05/13/18 04:39 [place] Bodies Not Reportable 05/13/18 04:39 [place] Rings Not Reportable 05/13/18 04:39 [place] Cells Not Reportable 05/13/18 04:39 Bite Cells Not Reportable 05/13/18 04:39 Crenated Cell Not Reportable 05/13/18 04:39 Elliptocytes 1+ 05/13/18 04:39 Acanthocytes (Spur) Not Reportable 05/13/18 04:39 Rouleaux Not Reportable 05/13/18 04:39 Hemoglobin C Crystals Not Reportable 05/13/18 04:39 Schistocytes Not Reportable 05/13/18 04:39 Malaria parasites Not Reportable 05/13/18 04:39 [place] Bodies Not Reportable 05/13/18 04:39 Hem Pathologist Commnt No 05/13/18 04:39 PT 16.8 Sec. (12.2-14.9) H 05/11/18 10:38 INR 1.32 (0.87-1.13) H 05/11/18 10:38 APTT 25.6 Sec. (24.2-36.6) 05/11/18 10:38 Sodium 140 mmol/L (137-145) 05/15/18 04:40 Potassium 3.7 mmol/L (3.6-5.0) D 05/15/18 04:40 Chloride 98.0 mmol/L (98-107) 05/15/18 04:40 Carbon Dioxide 25 mmol/L (22-30) 05/15/18 04:40 Anion Gap 21 mmol/L 05/15/18 04:40 BUN 21 mg/dL (7-17) H 05/15/18 04:40 Creatinine 3.8 mg/dL (0.7-1.2) H 05/15/18 04:40 Estimated GFR 15 ml/min 05/15/18 04:40 BUN/Creatinine Ratio 6 % 05/15/18 04:40 Glucose 102 mg/dL (65-100) H 05/15/18 04:40 POC Glucose 95 (70-105) 05/15/18 07:52 Lactic Acid 1.80 mmol/L (0.7-2.0) 05/11/18 21:25 Calcium 9.3 mg/dL (8.4-10.2) 05/15/18 04:40 Magnesium 2.00 mg/dL (1.7-2.3) 05/14/18 23:30 Total Bilirubin 0.30 mg/dL (0.1-1.2) 05/14/18 23:30 AST 46 units/L (5-40) H 05/14/18 23:30 ALT 11 units/L (7-56) 05/14/18 23:30 Alkaline Phosphatase 65 units/L (35-129) 05/14/18 23:30 Total Creatine Kinase 269 units/L (30-135) H 05/11/18 16:46 CK-MB (CK-2) 12.3 ng/mL (0.0-4.0) H 05/11/18 16:46 CK-MB (CK-2) Rel Index 4.5 (0-4) H 05/11/18 16:46 Troponin T 1.540 ng/mL (0.00-0.029) H* 05/11/18 16:46 NT-Pro-B Natriuret Pep > 44884 pg/mL (0-900) H 05/11/18 10:38 Total Protein 6.2 g/dL (6.3-8.2) L 05/14/18 23:30 Albumin 2.6 g/dL (3.9-5) L 05/14/18 23:30 Albumin/Globulin Ratio 0.7 % 05/14/18 23:30 Triglycerides 182 mg/dL (2-149) H 05/11/18 10:38 Cholesterol 102 mg/dL (50-199) 05/11/18 10:38 LDL Cholesterol Direct 44 mg/dL (50-130) L 05/11/18 10:38 HDL Cholesterol 26 mg/dL (40-59) L 05/11/18 10:38 Cholesterol/HDL Ratio 3.92 % 05/11/18 10:38 Urine Color Yellow (Yellow) 05/11/18 12:03 Urine Turbidity Turbid (Clear) 05/11/18 12:03 Urine pH 7.0 (5.0-7.0) 05/11/18 12:03 Ur Specific [place] 1.012 (1.003-1.030) 05/11/18 12:03 Urine Protein 100 mg/dl mg/dL (Negative) 05/11/18 12:03 Urine Glucose (UA) Neg mg/dL (Negative) 05/11/18 12:03 Urine Ketones Neg mg/dL (Negative) 05/11/18 12:03 Urine Blood Mod (Negative) 05/11/18 12:03 Urine Nitrite Neg (Negative) 05/11/18 12:03 Urine Bilirubin Neg (Negative) 05/11/18 12:03 Urine Urobilinogen < 2.0 mg/dL (<2.0) 05/11/18 12:03 Ur Leukocyte Esterase Mod (Negative) 05/11/18 12:03 Urine WBC (Auto) > 182.0 /HPF (0.0-6.0) H 05/11/18 12:03 Urine RBC (Auto) 170.0 /HPF (0.0-6.0) 05/11/18 12:03 Urine Bacteria (Auto) 4+ /HPF (Negative) 05/11/18 12:03 Urine WBC Clumps 3+ /HPF 05/11/18 12:03
--- NOTE | 2018-05-15 11:37 | Consultation ---
History of Present Illness Consult date: 05/15/18 Requesting physician: DANY FLEMING Reason for consult: other (severe sepsis with septic shock) History of present illness: 62 YO Female [facility] Facility Resident with HTN, CHF, Right Calf DVT, GERD, ESRD on HD (T,R,Sa), COPD, Asthma, Chronic RLE DVT not on anticoagulation, OA, Seizure disorder, DM presented to ED for evaluation. Patietn was confused and unable to provide history. History per review of the medical records. As per records the patient was found to be confused by her . EMS notif ied, and upon arrival the patient was encephalopathic. Patient was transported to [facility] for further care and evaluation. She seen and evaluated in ED and found to be hypotensive with systolic BP in the 80's secondary to sepsis, she was also noted to have elevated troponins. CT head showed an acute to subacute right parietal infarct A right femoral CVC was placed, volume resuscitated and vasopressor support initiated with antibiotic therapy. Of note patient was recently discharge from [facility] on 05/01/2018 after a prolonged hospital stay. During that hospitalization, she was found to have , MR sepsis mitral valve endocarditis , pneumonia. She was discharged on vancomycin after dialysis with targets levels between 10- 20 until 05/29/2018. I have been consulted, today 05/15/18 for critical care management. - Past Medical History Hx Hypertension: Yes Hx Congestive Heart Failure: Yes Hx Diabetes: Yes Hx Deep Vein Thrombosis: Yes (Right calf) Hx GERD: Yes Hx Renal Disease: Yes (ESRD; HD TTS) Hx Arthritis: Yes Hx Seizures: Yes Hx Psychiatric Treatment: Yes (Anxiety, Bipolar) Hx Asthma: Lisa Hx COPD: Yes Hx HIV: No Additional medical history: TIA - Surgical History Hx Cholecystectomy: Yes Additional Surgical History: Hysterectomy, Right shoulder x3, Bilateral ankle fx repair, fistula left upper arm Past History Past Medical History: arthritis, ESRD, GERD, heart failure, hypertension Past Surgical History: cholecystectomy, hysterectomy, Other (AV fistula) Social history: Family history: CAD, hypertension Medications and Allergies Allergies Allergy/AdvReac Type Severity Reaction Status Date / Time codeine Allergy Rash Verified 03/04/16 15:27 Sulfa (Sulfonamide Allergy Rash Verified 03/04/16 15:27 Antibiotics) Home Medications Medication Instructions Recorded Confirmed Last Taken Type Albuterol Sulfate [Ventolin HFA] 2 puff IH Q4H PRN 03/31/16 05/11/18 04/14/18 10:00 History Esomeprazole Magnesium [NexIUM] 40 mg PO QDAY #30 capsule. 03/30/18 05/11/18 04/14/18 10:00 Rx Gabapentin [Neurontin] 100 mg PO Q12HR capsule 05/01/18 05/11/18 Unknown Rx Sevelamer Carbonate [Renvela] 2,400 mg PO AC tablet 05/01/18 05/11/18 Unknown Rx levETIRAcetam [Keppra TAB] 500 mg PO BID tablet 05/01/18 05/11/18 Unknown Rx oxyCODONE /ACETAMINOPHEN [Percocet 1 tab PO Q6H PRN #30 tablet 05/01/18 05/11/18 Unknown Rx 5/325 mg] ALBUTEROL NEB's [Proventil] 2.5 mg IH Q6H PRN 05/11/18 05/11/18 Unknown History Acetaminophen [Tylenol] 650 mg PO Q4H PRN 05/11/18 05/11/18 Unknown History Acetaminophen [Tylenol] 650 mg PO Q4H PRN 05/11/18 05/11/18 Unknown History FLUoxetine [PROzac] 20 mg PO QDAY 05/11/18 05/11/18 Unknown History Ferrous Sulfate [Iron] 325 mg PO BID 05/11/18 05/11/18 Unknown History Hydroxyzine HCl [hydrOXYzine] 50 mg PO Q12H PRN 05/11/18 05/11/18 Unknown History Quetiapine Fumarate [SEROquel] 50 mg PO Q12H 05/11/18 05/11/18 Unknown History clonazePAM [Clonazepam] 1 mg PO Q12H PRN 05/11/18 05/11/18 Unknown History Active Meds: Active Medications Acetaminophen (Tylenol) 650 mg PO Q4H PRN PRN Reason: Fever >101 Albuterol (Proventil) 2.5 mg IH Q3HRT PRN PRN Reason: Shortness Of Breath Aspirin (Aspirin) 325 mg PO QDAY [facility] Last Admin: 05/15/18 09:19 Dose: 325 mg Documented by: Atorvastatin Calcium (Lipitor) 40 mg PO QHS [facility] Last Admin: 05/14/18 21:00 Dose: 40 mg Documented by: Bisacodyl (Dulcolax) 10 mg MA QDAY PRN PRN Reason: Constipation Clonazepam (Klonopin) 1 mg PO Q12H [facility] Last Admin: 05/15/18 09:34 Dose: 1 mg Documented by: Epoetin Jt (Procrit) 20,000 unit SUB-Q MYAH PRN PRN Reason: hemodialysis Last Admin: 05/13/18 14:56 Dose: 20,000 unit Documented by: Ferrous Sulfate (Feosol) 325 mg PO BID [facility] Last Admin: 05/15/18 09:20 Dose: 325 mg Documented by: Fluoxetine HCl (Prozac) 20 mg PO QDAY [facility] Last Admin: 05/15/18 09:20 Dose: 20 mg Documented by: Gabapentin (Neurontin) 100 mg PO Q12HR [facility] Last Admin: 05/15/18 09:20 Dose: 100 mg Documented by: Hydroxyzine HCl (Atarax) 50 mg PO Q12H PRN PRN Reason: Itching Norepinephrine (Levophed Drip 4 Mg/Ns 250 Ml) 4 mg in 250 mls @ 7.5 mls/hr IV TITR [facility]; Protocol Last Admin: 05/15/18 09:21 Dose: 18 mcg/min, 67.5 mls/hr Documented by: Sodium Chloride (Nacl 0.9%) 100 mls @ 999 mls/hr IV MYAH PRN PRN Reason: Hypotension Ceftriaxone Sodium (Rocephin/Ns 1 Gm/50 Ml) 1 gm in 50 mls @ 100 mls/hr IV Q24HR [facility]; Protocol Last Admin: 05/15/18 09:35 Dose: 100 mls/hr Documented by: Lansoprazole (Prevacid Solutab) 30 mg FEEDTUBE QDAY [facility] Levetiracetam (Keppra) 500 mg PO BID [facility] Last Admin: 05/15/18 09:20 Dose: 500 mg Documented by: Magnesium Hydroxide (Milk Of Magnesia) 30 ml PO Q4H PRN PRN Reason: Constipation Metoclopramide HCl (Reglan) 10 mg PO Q6H PRN PRN Reason: Nausea And Vomiting Ondansetron HCl (Zofran) 4 mg IV Q8H PRN PRN Reason: Nausea And Vomiting Oxycodone/Acetaminophen (Percocet 5/325) 1 tab PO Q6H PRN PRN Reason: Pain, Moderate (4-6) Last Admin: 05/14/18 09:01 Dose: 1 tab Documented by: Promethazine HCl (Phenergan) 25 mg MA Q6H PRN PRN Reason: Nausea And Vomiting Quetiapine Fumarate (Seroquel) 50 mg PO Q12H [facility] Last Admin: 05/15/18 09:19 Dose: 50 mg Documented by: Sevelamer Carbonate (Renvela) 2,400 mg PO AC [facility] Last Admin: 05/15/18 09:19 Dose: 2,400 mg Documented by: Sodium Chloride (Sodium Chloride Flush Syringe 10 Ml) 10 ml IV PRN PRN PRN Reason: LINE FLUSH Last Admin: 05/14/18 21:01 Dose: 10 ml Documented by: Review of Systems ROS unobtainable: due to mental status Physical Examination Vital signs: Vital Signs Temp Pulse Resp BP Pulse Ox 98.0 F 86 19 81/54 100 05/11/18 09:34 05/11/18 09:34 05/11/18 09:34 05/11/18 09:34 05/11/18 09:34 General appearance: somnolent in NAD, non conversant on NC O2 at 3L/min Eyes: anicteric sclerae, moist conjunctivae; PERRLA HENT: Atraumatic;normocephalic Neck: Trachea midline; supple, no thyromegaly or lymphadenopathy Lungs: Decreased AE bilaterally, no wheezing CV:RRR, S1, S2, systolic murmurm Abdomen: Soft, non-tender; no masses or hepatosplenomegaly Extremities: +bilaterl LExt edema, right femoral CVC Skin: Normal temperature, turgor and texture; no rash, ulcers or subcutaneous nodules Psych: somnolent Neuro: somnolent , not obeying commands, moves extremities Results - Laboratory Findings CBC and BMP: 05/15/18 04:40 05/15/18 04:40 PT/INR, D-dimer PT 16.8 Sec. (12.2-14.9) H 05/11/18 10:38 INR 1.32 (0.87-1.13) H 05/11/18 10:38 Abnormal lab findings: Abnormal Labs 05/11/18 05/11/18 05/11/18 10:38 10:38 10:38 RBC 3.36 L Hgb 8.2 L Hct 26.0 L MCV 78 L MCH 24 L RDW 23.0 H Plt Count Lymph % (Auto) [place] % (Auto) Lymph # [place] # Seg Neutrophils % Seg Neuts % (Manual) 95.0 H Lymphocytes % (Manual) 3.0 L Lymphocytes # (Manual) 0.2 L PT 16.8 H INR 1.32 H Sodium 136 L Potassium 5.3 H Chloride 93.0 L BUN 41 H Creatinine 6.3 H Glucose 101 H POC Glucose Lactic Acid AST ALT 6 L Total Creatine Kinase CK-MB (CK-2) CK-MB (CK-2) Rel Index Troponin T 1.360 H* NT-Pro-B Natriuret Pep > 30451 H Total Protein Albumin 3.0 L Triglycerides 182 H LDL Cholesterol Direct 44 L HDL Cholesterol 26 L Urine WBC (Auto) 05/11/18 05/11/18 05/11/18 11:47 12:03 16:46 RBC Hgb Hct MCV MCH RDW Plt Count Lymph % (Auto) [place] % (Auto) Lymph # [place] # Seg Neutrophils % Seg Neuts % (Manual) Lymphocytes % (Manual) Lymphocytes # (Manual) PT INR Sodium Potassium Chloride BUN Creatinine Glucose POC Glucose Lactic Acid 2.30 H* 2.40 H* AST ALT Total Creatine Kinase CK-MB (CK-2) CK-MB (CK-2) Rel Index Troponin T NT-Pro-B Natriuret Pep Total Protein Albumin Triglycerides LDL Cholesterol Direct HDL Cholesterol Urine WBC (Auto) > 182.0 H 05/11/18 05/11/18 05/11/18 16:46 17:39 20:54 RBC Hgb Hct MCV MCH RDW Plt Count Lymph % (Auto) [place] % (Auto) Lymph # [place] # Seg Neutrophils % Seg Neuts % (Manual) Lymphocytes % (Manual) Lymphocytes # (Manual) PT INR Sodium Potassium Chloride BUN Creatinine Glucose POC Glucose 119 H Lactic Acid 2.40 H* AST ALT Total Creatine Kinase 269 H CK-MB (CK-2) 12.3 H CK-MB (CK-2) Rel Index 4.5 H Troponin T 1.540 H* NT-Pro-B Natriuret Pep Total Protein Albumin Triglycerides LDL Cholesterol Direct HDL Cholesterol Urine WBC (Auto) 05/12/18 05/12/18 05/13/18 05:40 22:27 04:39 RBC Hgb 9.4 L Hct 29.8 L MCV 77 L MCH 24 L RDW 23.4 H Plt Count 114 L Lymph % (Auto) [place] % (Auto) Lymph # [place] # Seg Neutrophils % Seg Neuts % (Manual) 82.0 H Lymphocytes % (Manual) 11.0 L Lymphocytes # (Manual) 1.0 L PT INR Sodium Potassium 5.4 H Chloride 95.9 L BUN 43 H Creatinine 6.3 H Glucose POC Glucose 68 L Lactic Acid AST ALT Total Creatine Kinase CK-MB (CK-2) CK-MB (CK-2) Rel Index Troponin T NT-Pro-B Natriuret Pep Total Protein Albumin Triglycerides LDL Cholesterol Direct HDL Cholesterol Urine WBC (Auto) 05/13/18 05/14/18 05/14/18 04:39 03:20 03:20 RBC Hgb 9.8 L Hct MCV MCH 24 L RDW 23.8 H Plt Count Lymph % (Auto) 11.8 L [place] % (Auto) 10.5 H Lymph # 1.1 L [place] # 0.9 H Seg Neutrophils % 75.9 H Seg Neuts % (Manual) Lymphocytes % (Manual) Lymphocytes # (Manual) PT INR Sodium Potassium 5.5 H Chloride 96.7 L 96.8 L BUN 32 H 18 H Creatinine 4.8 H 3.2 H Glucose 105 H 115 H POC Glucose Lactic Acid AST ALT Total Creatine Kinase CK-MB (CK-2) CK-MB (CK-2) Rel Index Troponin T NT-Pro-B Natriuret Pep Total Protein Albumin Triglycerides LDL Cholesterol Direct HDL Cholesterol Urine WBC (Auto) 05/14/18 05/14/18 05/15/18 21:35 23:30 04:40 RBC Hgb Hct MCV MCH 24 L RDW 23.5 H Plt Count Lymph % (Auto) [place] % (Auto) 10.0 H Lymph # [place] # 1.0 H Seg Neutrophils % 74.2 H Seg Neuts % (Manual) Lymphocytes % (Manual) Lymphocytes # (Manual) PT INR Sodium 135 L Potassium 5.4 H D Chloride 97.9 L BUN 20 H Creatinine 3.6 H Glucose POC Glucose 106 H Lactic Acid AST 46 H ALT Total Creatine Kinase CK-MB (CK-2) CK-MB (CK-2) Rel Index Troponin T NT-Pro-B Natriuret Pep Total Protein 6.2 L Albumin 2.6 L Triglycerides LDL Cholesterol Direct HDL Cholesterol Urine WBC (Auto) 05/15/18 04:40 RBC Hgb Hct MCV MCH RDW Plt Count Lymph % (Auto) [place] % (Auto) Lymph # [place] # Seg Neutrophils % Seg Neuts % (Manual) Lymphocytes % (Manual) Lymphocytes # (Manual) PT INR Sodium Potassium Chloride BUN 21 H Creatinine 3.8 H Glucose 102 H POC Glucose Lactic Acid AST ALT Total Creatine Kinase CK-MB (CK-2) CK-MB (CK-2) Rel Index Troponin T NT-Pro-B Natriuret Pep Total Protein Albumin Triglycerides LDL Cholesterol Direct HDL Cholesterol Urine WBC (Auto) - Diagnostic Findings Chest x-ray: image reviewed (Changes consistent with alveolar edema) Additional studies: TTE done 04/17/2018 showed EF 55-60%, RA severely dilated, mild to mod TR, trace MR, RV severely dilated, RV systolic function mod to severely reduced, severe pulm HTN with RVSP 67mmHg. CT head showed acute or subacute right parietal infarct. MRI brain showed small multifocal areas of acute or subacute infarct.No evidence of intracranial hemorrhage. White matter disease. Mild mastoiditis. MRA head no significant stenosis Assessment and Plan -Severe sepsis with septic shock -History of MRSA bacteremia/mitral valve endocarditis -Acute encephaloapthy( toxic, metabolic, CVA) -Acute CVA -Chronic respiratory failure on oxygen at 2L/min -ESRD on HD -Pulmonary HTN -RLE DVT -NSTEMI -Acute on chronic encephalopathy( toxic, metabolic) -h/o COPD -Seizure disorder -Bipolar disorder -Anemia -Continue ICU admission -Wean vasopressor support for MAP>65 -Continue on vancomycin after dialysis with targets levels between 10-20 until 05/29/2018. Follow cultures -Contact isolation -De-escalate antibiotic therapy based on CESAR and cultures reports -Continue femoral CVC -Place small bowel feeding tube for nutritional support. Anticipate she will ultimately need a PEG tube -Nutrition consult for tube feeding -NIPPV at night -PT/OT to evaluate -Aspiration precautions -Adjust all medications for CrCl/GFR -Supportive HD per renal as tolerated by hemodynamics -Secondary stroke prevention,get Neurology consult -Avoid delirium, no benzodiazepines, maintain sleep-wake cycle -Accuchecks with glycemic control. Target glucose 140-180 mg/dL -Mobility program for pressure ulcer prevention -No therapeutic anticoagulation per Cardiology -VTE prophylaxis - Supplemental oxygen to keep O2 sats>90% -Bronchodilators per protocol FULL CODE CONDITION: CRITICAL PROGNOSIS: GUARDED Will need to re-address code status and goals of care with her The high probability of a clinically significant, sudden or life-threatening deterioration of the [respiratory, cardiovascular, renal, neurology] system(s) required my full and direct attention, intervention and personal management. The aggregate critical care time was [75] minutes without overlap. Time includes spent on; [x] Data Review and interpretation [x] Patient assessment and monitoring of vital signs [x] Documentation [x] Medication orders and management
--- NOTE | 2018-05-15 11:45 | Progress Note ---
Assessment and Plan Cultures: Blood culture 04/15/2018 MRSA Blood culture 04/17/2018 negative Blood culture 05/11/2018 IRRIGATOR VALVE PIPE 1 of 4 bottles and Strep salivarius 2 of 4. Urine culture 05/11/2018 neg Assessment: 62 y/o female with hypertension, congestive heart failure, ESRD on hemodialysis via left arm AVG, asthma, chronic right lower extremity DVT, seizure disorder, diabetes mellitus type 2, admitted on 04/15/2018 found to have acute mitral valve endocarditis secondary to MRSA bacteremia, was on IV Vancomycin post HD x 6 weeks end date: 05/29/2018, admitted due to AMS. 1) Shock: multifactorial ?septic +/- cardiogenic; patient with acute mitral valve endocarditis secondary to MRSA bacteremia, was on IV Vancomycin on HD. Possible brain emboli +/- acute heart failure/NSEMI +/- UTI. UA c/w UTI. Blood cultures 05/11/2018 IRRIGATOR VALVE PIPE 1 of 4 bottles likely a contaminant and S. salivarius ? real vs. contaminant, patient with a left AVG. CXR shows heart failure. Remains on pressors. 2) Acute multifocal CVA: likely from MV endocarditis - CT head showed acute or subacute right parietal infarct. - MRI brain showed small multifocal areas of acute or subacute infarct as described. No evidence of intracranial hemorrhage. White matter disease. Mild mastoiditis. - MRA head no significant stenosis 3) Recent acute mitral valve endocarditis secondary to MRSA: patient receving IV Vancomycin on HD, no evidence of recurrent MRSA bacteremia so far, ? left AVG infection as seen on WBC tagged scan - SASHA 04/20/2018 positive for mitral valve vegetation. Noted to have bilateral pulmonary nodules deemed to be bilateral septic emboli. - WBC tagged scan 04/27/2018 showed 2 subtle but suspicious areas of radiotracer accumulation are identified on the delayed images in the medial left arm and in the region of the right knee. - Plan was to continue IV Vancomycin post HD x 6 weeks, target pre-dialysis levels between 10-20 mcg/ml (end date: 05/29/2018). - Blood cx 05/11/2017 IRRIGATOR VALVE PIPE 1 of 4 bottles likely contaminant in Set 1, S. salivarius 2 of 2 bottles in set 2. Both likely contaminants. 4) NSTEMI: likely type 2 per cardiology. 5) Acute encephalopathy: due to CVA. Recommendations: - CT surgery evaluation due to acute multifocal CVA in the setting of MV endocarditis due to MRSA - discontinued ceftriaxone - CoNS and Strep salivarius in blood cultures are likely contaminants, patient anyways on IV Vancomycin - consider Vascular consult Dr Stephen schwarz AVG presumably infected per WBC tagged scan - continue vancomycin IV renally adjusted as blood culture remains negative for MRSA - repeat blood cultures ordered - repeat TTE - pending D/W Dr. Campos from Cardiology. Overall prognosis is guarded. Black Crespo MD Infectious Diseases [place] [facility] ([facility]) M [phone] O [phone] Subjective Date of service: 05/15/18 Principal diagnosis: CVA Interval history: Patient afebrile. Remains drowsy, on pressors, levophed. Objective - Exam Narrative Exam: General: drowsy, no distress HEENT: Atraumatic, no icterus, conjunctivae and cornea clear Oral: oropharynx limited exam Neck: Trachea midline; supple, no thyromegaly or lymphadenopathy Lungs: CTA distant BS CV: tachycardic, S1 S2+ Abdomen: Soft, non-tender; no masses or hepatosplenomegaly Extremities: +shanon edema, cold peripherally Skin: cold, no rash. Psych: somnolent Neuro: somnolent non verbal Lines: right femoral TLC, left AVG - Constitutional Vitals: Vital Signs Temp Pulse Resp BP Pulse Ox 98.1 F 127 H 16 144/87 100 05/15/18 03:55 05/15/18 08:40 05/15/18 08:40 05/15/18 08:40 05/15/18 08:40 Temperature -Last 24 Hours Temperature 98.1 F Temperature 97.4 F Temperature 99.0 F Temperature 99.9 F - Labs CBC & Chem 7: 05/15/18 04:40 05/15/18 04:40 Labs: Abnormal lab results 05/14/18 05/14/18 05/15/18 Range/Units 21:35 23:30 04:40 MCH 24 L (28-32) pg RDW 23.5 H (13.2-15.2) % [place] % (Auto) 10.0 H (0.0-7.3) % [place] # 1.0 H (0.0-0.8) K/mm3 Seg Neutrophils % 74.2 H (40.0-70.0) % Sodium 135 L (137-145) mmol/L Potassium 5.4 H D (3.6-5.0) mmol/L Chloride 97.9 L (98-107) mmol/L BUN 20 H (7-17) mg/dL Creatinine 3.6 H (0.7-1.2) mg/dL Glucose (65-100) mg/dL POC Glucose 106 H (70-105) AST 46 H (5-40) units/L Total Protein 6.2 L (6.3-8.2) g/dL Albumin 2.6 L (3.9-5) g/dL 05/15/18 Range/Units 04:40 MCH (28-32) pg RDW (13.2-15.2) % [place] % (Auto) (0.0-7.3) % [place] # (0.0-0.8) K/mm3 Seg Neutrophils % (40.0-70.0) % Sodium (137-145) mmol/L Potassium (3.6-5.0) mmol/L Chloride (98-107) mmol/L BUN 21 H (7-17) mg/dL Creatinine 3.8 H (0.7-1.2) mg/dL Glucose 102 H (65-100) mg/dL POC Glucose (70-105) AST (5-40) units/L Total Protein (6.3-8.2) g/dL Albumin (3.9-5) g/dL
--- NOTE | 2018-05-15 12:33 | XRay Report ---
AP ABDOMEN: HISTORY: Feeding tube placement. The feeding tube terminates in the antrum of the stomach. The abdominal gas pattern is unremarkable. No masses or organomegaly is identified and there is no gross evidence of free air or fluid. IVC filter and cholecystectomy changes are noted. No significant soft tissue calcifications are noted. IMPRESSION: The feeding tube terminates in the antrum of the stomach.
--- NOTE | 2018-05-15 14:54 | Vascular Lab Report ---
FINAL REPORT EXAM: VL CAROTID DUPLEX LT HISTORY: stroke TECHNIQUE: Left carotid duplex Doppler ultrasound PRIORS: None. FINDINGS: There are some atherosclerotic calcifications involving left carotid bifurcation and carotid bulb reg ion. There is no abnormal flow velocity elevation on the left indicate stenosis of hemodynamic signif icance. Specifically, stenosis is less than 50 percent. Vertebral artery flow is antegrade IMPRESSION: Only left-sided evaluation could be performed due to venous catheter in the right neck. Left-sided evaluation demonstrates no stenosis of hemodynamic significance.
[2018-05-15] MEDS ORDERED: SIMPLE SYRUP FEEDTUBE PRN ×2 (15:46)
[2018-05-15] MEDS ORDERED: PANCREAZE DR 10,500 UNIT FEEDTUBE PRN (15:46)
[2018-05-15] MEDS ORDERED: SODIUM BICARBONATE FEEDTUBE PRN (15:46)
[2018-05-16] MEDS: LEVOPHED DRIP 4 MG/NS 250 ML 4 MG/250 ML BAG IV SCH ×2 (02:20→07:00)
[2018-05-16 06:51] LABS: Basophils # (Auto) 0.1 K/mm3 (0.0-0.1); Basophils % (Auto) 1.2 % (0.0-1.8); Eosinophils # (Auto) 0.2 K/mm3 (0.0-0.4); Eosinophils % (Auto) 2.5 % (0.0-4.3); Lymphocytes # (Auto) 1.2 K/mm3 (1.2-5.4); Lymphocytes % (Auto) 15.3 % (13.4-35.0); Mean Corpuscular HGB Conc 29 % (30-34); Mean Corpuscular Volume 82 fl (79-97); Monocytes # (Auto) 0.8 K/mm3 (0.0-0.8); Monocytes % (Auto) 10.7 % (0.0-7.3); Platelet Count 307 K/mm3 (140-440); Red Blood Count 4.11 M/mm3 (3.65-5.03)
[2018-05-16 06:54] LABS: Hematocrit 33.6 % (30.3-42.9); Hemoglobin 9.8 gm/dl (10.1-14.3); Red Cell Distribution Width 24.9 % (13.2-15.2)
[2018-05-16 07:12] LABS: Calcium 9.2 mg/dL (8.4-10.2)
[2018-05-16] MEDS: RENVELA PO SCH ×2 (08:07→12:35)
--- NOTE | 2018-05-16 09:18 | Progress Note ---
Addendum entered and electronically signed by YUE CAMPOS MD 05/16/18 10:48: Had a lengthy discussion with the patient's Mr. Ocasio's cell phone #[phone] about his 's overall prognosis. He realizes that his is likely a high risk surgical candidate and would like her to be evaluated by CT surgeon. He informed me that if she is not a surgical candidate his ultimate goal after that would be to keep his comfortable. Acute embolic CVA MRSA bacteremia/mitral valve endocarditis ESRD Original Note: Assessment and Plan Acute CVA Likley sequele of Endocarditis Hypotension on levophed gtt History of MRSA bacteremia/mitral valve endocarditis continue on vancomycin after dialysis with targets levels between 10-20 until 05/29/2018. COPD/Acute on chronic hypoxic respiratory failure on BiPAP RLE DVT ESRD Seizure disorder Bipolar disorder TTE done 04/17/2018 showed EF 55-60%, RA severely dilated, mild to mod TR, trace MR, RV severely dilated, RV systolic function mod to severely reduced, severe pulm HTN with RVSP 67mmHg. The patient has been seen in conjunction with Dr. Campos who agrees with the assessment and plan of care. 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 (8) ASD (atrial septal defect) Current Visit: Yes Status: Chronic (9) End stage renal disease on dialysis Current Visit: Yes Status: Chronic (10) COPD (chronic obstructive pulmonary disease) Current Visit: Yes Status: Chronic (11) Moderate to severe pulmonary hypertension Current Visit: Yes Status: Chronic (12) History of DVT (deep vein thrombosis) Current Visit: Yes Status: Chronic (13) Anemia Current Visit: Yes Status: Acute (14) Psychiatric disorder Current Visit: Yes Status: Chronic Subjective Date of service: 05/16/18 Principal diagnosis: CVA Interval history: pt on BiPAP, lethargic. levophed gtt infusing. Objective Last Vital Signs Temp 99.1 F 05/16/18 03:38 Pulse 102 H 05/16/18 08:00 Resp 14 05/16/18 08:00 BP 86/53 05/16/18 08:00 Pulse Ox 100 05/16/18 08:00 - Physical Examination General: Other (lethargic, on BiPAP) Neck: Positive: neck supple, trachea midline Cardiac: Positive: Reg Rate and Rhythm, S1/S2 Neuro: Positive: Other (lethargic, on BiPAP) Abdomen: Positive: Unremarkable Musculoskeletal: No Pain Extremities: Absent: edema - Labs and Meds CBC 05/16/18 Range/Units 06:00 WBC 7.8 (4.5-11.0) K/mm3 RBC 4.11 (3.65-5.03) M/mm3 Hgb 9.8 L (10.1-14.3) gm/dl Hct 33.6 (30.3-42.9) % Plt Count 307 (140-440) K/mm3 Lymph # 1.2 (1.2-5.4) K/mm3 [place] # 0.8 (0.0-0.8) K/mm3 Eos # 0.2 (0.0-0.4) K/mm3 Baso # 0.1 (0.0-0.1) K/mm3 Comprehensive Metabolic Panel 05/16/18 Range/Units 06:00 Sodium 139 (137-145) mmol/L Potassium 3.8 (3.6-5.0) mmol/L Chloride 98.8 (98-107) mmol/L Carbon Dioxide 24 (22-30) mmol/L BUN 24 H (7-17) mg/dL Creatinine 4.2 H (0.7-1.2) mg/dL Glucose 76 (65-100) mg/dL Calcium 9.2 (8.4-10.2) mg/dL - Imaging and Cardiology EKG: report reviewed, image reviewed Echo: report reviewed (TTE done 04/17/2018 showed EF 55-60%, RA severely dilated, mild to mod TR, trace MR, RV severely dilated, RV systolic function mod to severely reduced, severe pulm HTN with RVSP 67mmHg. SASHA 04/20/2018: endocarditis involving the posterior mitral valve leaflet, atrial septal defect with severe right heart enlargement and severe right ventricular dysfunction, severe pulmonary hypertension) - Telemetry EKG Rhythm: Sinus Rhythm - EKG Sinus rhythms and dysrhythmias: sinus rhythm AV and intraventricular conduction: right bundle branch block
--- NOTE | 2018-05-16 09:56 | Progress Note ---
Hospitalist Physical - Constitutional Vitals: Temp Pulse Resp BP Pulse Ox 99.1 F 102 H 14 86/53 100 05/16/18 03:38 05/16/18 08:00 05/16/18 08:00 05/16/18 08:00 05/16/18 08:00 General appearance: Present: no acute distress, obese, disheveled Results - Labs CBC & Chem 7: 05/16/18 06:00 05/16/18 06:00 Labs: Laboratory Last Values WBC 7.8 K/mm3 (4.5-11.0) 05/16/18 06:00 RBC 4.11 M/mm3 (3.65-5.03) 05/16/18 06:00 Hgb 9.8 gm/dl (10.1-14.3) L 05/16/18 06:00 Hct 33.6 % (30.3-42.9) 05/16/18 06:00 MCV 82 fl (79-97) 05/16/18 06:00 MCH 24 pg (28-32) L 05/16/18 06:00 MCHC 29 % (30-34) L 05/16/18 06:00 RDW 24.9 % (13.2-15.2) H 05/16/18 06:00 Plt Count 307 K/mm3 (140-440) 05/16/18 06:00 Lymph % (Auto) 15.3 % (13.4-35.0) 05/16/18 06:00 [place] % (Auto) 10.7 % (0.0-7.3) H 05/16/18 06:00 Eos % (Auto) 2.5 % (0.0-4.3) 05/16/18 06:00 Baso % (Auto) 1.2 % (0.0-1.8) 05/16/18 06:00 Lymph # 1.2 K/mm3 (1.2-5.4) 05/16/18 06:00 [place] # 0.8 K/mm3 (0.0-0.8) 05/16/18 06:00 Eos # 0.2 K/mm3 (0.0-0.4) 05/16/18 06:00 Baso # 0.1 K/mm3 (0.0-0.1) 05/16/18 06:00 Add Manual Diff Complete 05/13/18 04:39 Total Counted 100 05/13/18 04:39 Seg Neutrophils % 70.3 % (40.0-70.0) H 05/16/18 06:00 Seg Neuts % (Manual) 82.0 % (40.0-70.0) H 05/13/18 04:39 Band Neutrophils % 5.0 % 05/13/18 04:39 Lymphocytes % (Manual) 11.0 % (13.4-35.0) L 05/13/18 04:39 Reactive Lymphs % (Man) 0 % 05/13/18 04:39 Monocytes % (Manual) 2.0 % (0.0-7.3) 05/13/18 04:39 Eosinophils % (Manual) 0 % (0.0-4.3) 05/13/18 04:39 Basophils % (Manual) 0 % (0.0-1.8) 05/13/18 04:39 Metamyelocytes % 0 % 05/13/18 04:39 Myelocytes % 0 % 05/13/18 04:39 Promyelocytes % 0 % 05/13/18 04:39 Blast Cells % 0 % 05/13/18 04:39 Nucleated RBC % Not Reportable 05/13/18 04:39 Seg Neutrophils # 5.4 K/mm3 (1.8-7.7) 05/16/18 06:00 Seg Neutrophils # Man 7.5 K/mm3 (1.8-7.7) 05/13/18 04:39 Band Neutrophils # 0.5 K/mm3 05/13/18 04:39 Lymphocytes # (Manual) 1.0 K/mm3 (1.2-5.4) L 05/13/18 04:39 Abs React Lymphs (Man) 0.0 K/mm3 05/13/18 04:39 Monocytes # (Manual) 0.2 K/mm3 (0.0-0.8) 05/13/18 04:39 Eosinophils # (Manual) 0.0 K/mm3 (0.0-0.4) 05/13/18 04:39 Basophils # (Manual) 0.0 K/mm3 (0.0-0.1) 05/13/18 04:39 Metamyelocytes # 0.0 K/mm3 05/13/18 04:39 Myelocytes # 0.0 K/mm3 05/13/18 04:39 Promyelocytes # 0.0 K/mm3 05/13/18 04:39 Blast Cells # 0.0 K/mm3 05/13/18 04:39 WBC Morphology Not Reportable 05/13/18 04:39 Hypersegmented Neuts Not Reportable 05/13/18 04:39 Hyposegmented Neuts Not Reportable 05/13/18 04:39 Hypogranular Neuts Not Reportable 05/13/18 04:39 Smudge Cells Not Reportable 05/13/18 04:39 Toxic Granulation Not Reportable 05/13/18 04:39 Toxic Vacuolation Not Reportable 05/13/18 04:39 Dohle Bodies Not Reportable 05/13/18 04:39 Pelger-Huet Anomaly Not Reportable 05/13/18 04:39 Shazia Rods Not Reportable 05/13/18 04:39 Platelet Estimate Consistent w auto 05/13/18 04:39 Clumped Platelets Not Reportable 05/13/18 04:39 Plt Clumps, EDTA Not Reportable 05/13/18 04:39 Large Platelets Not Reportable 05/13/18 04:39 Giant Platelets Not Reportable 05/13/18 04:39 Platelet Satelliting Not Reportable 05/13/18 04:39 Plt Morphology Comment Not Reportable 05/13/18 04:39 RBC Morphology Not Reportable 05/13/18 04:39 Dimorphic RBCs Not Reportable 05/13/18 04:39 Polychromasia Not Reportable 05/13/18 04:39 Hypochromasia 1+ 05/13/18 04:39 Poikilocytosis Not Reportable 05/13/18 04:39 Anisocytosis 2+ 05/13/18 04:39 Microcytosis Not Reportable 05/13/18 04:39 Macrocytosis Not Reportable 05/13/18 04:39 Spherocytes Not Reportable 05/13/18 04:39 Pappenheimer Bodies Not Reportable 05/13/18 04:39 Sickle Cells Not Reportable 05/13/18 04:39 Target Cells Not Reportable 05/13/18 04:39 Tear Drop Cells 1+ 05/13/18 04:39 Ovalocytes 2+ 05/13/18 04:39 Helmet Cells Not Reportable 05/13/18 04:39 Santoro-Waldron Bodies Not Reportable 05/13/18 04:39 Currie Rings Not Reportable 05/13/18 04:39 Crystal Cells Not Reportable 05/13/18 04:39 Bite Cells Not Reportable 05/13/18 04:39 Crenated Cell Not Reportable 05/13/18 04:39 Elliptocytes 1+ 05/13/18 04:39 Acanthocytes (Spur) Not Reportable 05/13/18 04:39 Rouleaux Not Reportable 05/13/18 04:39 Hemoglobin C Crystals Not Reportable 05/13/18 04:39 Schistocytes Not Reportable 05/13/18 04:39 Malaria parasites Not Reportable 05/13/18 04:39 Alfredito Bodies Not Reportable 05/13/18 04:39 Hem Pathologist Commnt No 05/13/18 04:39 PT 16.8 Sec. (12.2-14.9) H 05/11/18 10:38 INR 1.32 (0.87-1.13) H 05/11/18 10:38 APTT 25.6 Sec. (24.2-36.6) 05/11/18 10:38 Sodium 139 mmol/L (137-145) 05/16/18 06:00 Potassium 3.8 mmol/L (3.6-5.0) 05/16/18 06:00 Chloride 98.8 mmol/L (98-107) 05/16/18 06:00 Carbon Dioxide 24 mmol/L (22-30) 05/16/18 06:00 Anion Gap 20 mmol/L 05/16/18 06:00 BUN 24 mg/dL (7-17) H 05/16/18 06:00 Creatinine 4.2 mg/dL (0.7-1.2) H 05/16/18 06:00 Estimated GFR 13 ml/min 05/16/18 06:00 BUN/Creatinine Ratio 6 % 05/16/18 06:00 Glucose 76 mg/dL (65-100) 05/16/18 06:00 POC Glucose 104 (70-105) 05/15/18 21:12 Lactic Acid 1.80 mmol/L (0.7-2.0) 05/11/18 21:25 Calcium 9.2 mg/dL (8.4-10.2) 05/16/18 06:00 Magnesium 2.00 mg/dL (1.7-2.3) 05/14/18 23:30 Total Bilirubin 0.30 mg/dL (0.1-1.2) 05/14/18 23:30 AST 46 units/L (5-40) H 05/14/18 23:30 ALT 11 units/L (7-56) 05/14/18 23:30 Alkaline Phosphatase 65 units/L (35-129) 05/14/18 23:30 Total Creatine Kinase 269 units/L (30-135) H 05/11/18 16:46 CK-MB (CK-2) 12.3 ng/mL (0.0-4.0) H 05/11/18 16:46 CK-MB (CK-2) Rel Index 4.5 (0-4) H 05/11/18 16:46 Troponin T 1.540 ng/mL (0.00-0.029) H* 05/11/18 16:46 NT-Pro-B Natriuret Pep > 27661 pg/mL (0-900) H 05/11/18 10:38 Total Protein 6.2 g/dL (6.3-8.2) L 05/14/18 23:30 Albumin 2.6 g/dL (3.9-5) L 05/14/18 23:30 Albumin/Globulin Ratio 0.7 % 05/14/18 23:30 Triglycerides 182 mg/dL (2-149) H 05/11/18 10:38 Cholesterol 102 mg/dL (50-199) 05/11/18 10:38 LDL Cholesterol Direct 44 mg/dL (50-130) L 05/11/18 10:38 HDL Cholesterol 26 mg/dL (40-59) L 05/11/18 10:38 Cholesterol/HDL Ratio 3.92 % 05/11/18 10:38 Urine Color Yellow (Yellow) 05/11/18 12:03 Urine Turbidity Turbid (Clear) 05/11/18 12:03 Urine pH 7.0 (5.0-7.0) 05/11/18 12:03 Ur Specific [place] 1.012 (1.003-1.030) 05/11/18 12:03 Urine Protein 100 mg/dl mg/dL (Negative) 05/11/18 12:03 Urine Glucose (UA) Neg mg/dL (Negative) 05/11/18 12:03 Urine Ketones Neg mg/dL (Negative) 05/11/18 12:03 Urine Blood Mod (Negative) 05/11/18 12:03 Urine Nitrite Neg (Negative) 05/11/18 12:03 Urine Bilirubin Neg (Negative) 05/11/18 12:03 Urine Urobilinogen < 2.0 mg/dL (<2.0) 05/11/18 12:03 Ur Leukocyte Esterase Mod (Negative) 05/11/18 12:03 Urine WBC (Auto) > 182.0 /HPF (0.0-6.0) H 05/11/18 12:03 Urine RBC (Auto) 170.0 /HPF (0.0-6.0) 05/11/18 12:03 Urine Bacteria (Auto) 4+ /HPF (Negative) 05/11/18 12:03 Urine WBC Clumps 3+ /HPF 05/11/18 12:03 Random Vancomycin 23.3 ug/mL (0-40.0) 05/16/18 06:00 Nutrition/Malnutrition Assess - Dietary Evaluation Nutrition/Malnutrition Findings: Nutrition Notes Start: 05/15/18 15:36 Freq: Status: Active Protocol: Document 05/15/18 15:36 JULIANE (Rec: 05/15/18 15:45 JULIANE [email or web address]) Nutrition Notes Need for Assessment generated from: MD Order Initial or Follow up Assessment Current Diagnosis CKD (stage V CKD) COPD Diabetes Hypertension Heart Failure Current Diet NPO Labs/Tests BUN 21 Cr 3.8 Pertinent Medications Feosol, Levophed gtt, Renvela Height 5 ft 3 in Weight 79.379 kg [place] Body Weight (lbs) 115.0 BMI 30.9 Weight Status Obese Subjective/Other Information RD consulted for TF. Pt is from a PR. Burn Absent Trauma Absent #1 Nutrition Diagnosis Inadequate oral intake Etiology CVA As Evidenced by Signs and Symptoms pt NPO Is patient on ventilator? No Is Patient Ambulatory and/or Out of Bed No REE-([facility]-confined to bed) 1604.304 Kcal/Kg value to use for calculation 14 Approximate Energy Requirements Using 1111 kcal/Kg Additional Notes Pro needs 2g/kg IBW: 105g/day Fluid needs 1-1.5L/day Nutrition Intervention Nutrition Support: Nepro at 35ml/hr. Provide 150ml water flush q4h. Kcal 1,512 Protein (gm) 68 Carbohydrates (gm) 135 Fat (gm) 81 Fluid (mL) 611 Fiber (gm) 11 Goal #1 TF tolerance Goal #2 TF to meet nutrient needs as best possible Anticipated Discharge Needs: Continue TF if necessary Follow-Up By: 05/17/18 Additional Comments F/U: new TF
[2018-05-16] MEDS ORDERED: PREVACID SOLUTAB FEEDTUBE SCH (10:00)
[2018-05-16] MEDS: FEOSOL PO SCH (10:17)
[2018-05-16] MEDS: NEURONTIN PO SCH (10:17)
[2018-05-16] MEDS: ASPIRIN PO SCH (10:17)
[2018-05-16] MEDS: KEPPRA PO SCH (10:17)
[2018-05-16] MEDS: PROzac PO SCH (10:20)
[2018-05-16] MEDS: LEVOPHED 8 MG in NACL 0.9% 250ML 242 ML IV SCH ×2 (10:26→16:29)
--- NOTE | 2018-05-16 11:38 | Progress Note ---
Assessment and Plan Severe sepsis with shock History of MRSA bacteremia/mitral valve endocarditis Acute encephaloapthy( toxic, metabolic, CVA) Acute CVA (recurrent) Pulmonary HTN RLE DVT NSTEMI Acute on chronic hypoxemic -respiratory failure h/o COPD Seizure disorder Bipolar disorder Anemia Lactic acidosis ESRD on HD Right glenohumeral fracture with impaction - continue Supplemental oxygen to keep O2 sats>90% - continue bronchodilators per protocol - Wean vasopressor support for MAP>65 - Continue on vancomycin after dialysis with targets levels between 10-20 until 05/29/2018. Follow cultures - continue Contact isolation - De-escalate antibiotic therapy based on CESAR and cultures reports - Continue femoral CVL for now (difficult vascular access patient) - Place small bowel feeding tube for nutritional support. Anticipate she will ultimately need a PEG tube - Nutrition consult for tube feeding - continue NIPPV qhs - PT/OT to evaluate - continue aspiration precautions - Adjust all medications for CrCl/GFR - Supportive HD per renal as tolerated by hemodynamics - Secondary stroke prevention - Neurology evaluation ongoing re: recurrent CVA's - Avoid delirium, no benzodiazepines, maintain sleep-wake cycle - Accuchecks with glycemic control. Target glucose 140-180 mg/dL - Mobility program for pressure ulcer prevention - No therapeutic anticoagulation per Cardiology - continue VTE prophylaxis - Continue ICU admission till transfer - care plan discussed with at bedside and during team rounds CODE STATUS: FULL CODE CONDITION: CRITICAL PROGNOSIS: GUARDED The high probability of a clinically significant, sudden or life-threatening deterioration of the [respiratory, cardiovascular, neurological and renal ] system(s) required my full and direct attention, intervention and personal management. The aggregate critical care time was [35] minutes without overlap. Time includes spent on; [x] Data Review and interpretation [x] Patient assessment and monitoring of vital signs [x] Documentation [x] Medication orders and management Subjective Date of service: 05/16/18 Principal diagnosis: CVA Interval history: Patient is seen today for: Severe sepsis with shock; Acute on chronic hypoxemic -respiratory failure; Lactic acidosis Seen and examined at bedside; 24hour events reviewed; nursing and respiratory care staff consulted; no adverse overnight events reported to me; resting peacefully in bed; visiting; remains on pressors; tentatively to transfer to [facility] for cardiovascular surgery evaluation Objective Vital Signs - 12hr 05/15/18 05/15/18 05/16/18 23:40 23:50 00:00 Temperature Pulse Rate 106 H 106 H 106 H Pulse Rate [ 110 H Right Dorsalis Pedis] Respiratory 18 15 15 Rate Blood Pressure 110/72 122/66 100/67 O2 Sat by Pulse 100 100 100 Oximetry 05/16/18 05/16/18 05/16/18 00:10 00:20 00:30 Temperature Pulse Rate 106 H 108 H 107 H Pulse Rate [ Right Dorsalis Pedis] Respiratory 11 L 12 13 Rate Blood Pressure 100/67 96/72 111/69 O2 Sat by Pulse Oximetry 05/16/18 05/16/18 05/16/18 00:40 00:50 01:00 Temperature Pulse Rate 107 H 106 H 107 H Pulse Rate [ Right Dorsalis Pedis] Respiratory 20 13 19 Rate Blood Pressure 96/72 118/72 116/76 O2 Sat by Pulse Oximetry 05/16/18 05/16/18 05/16/18 01:10 01:17 01:20 Temperature Pulse Rate 107 H 108 H 107 H Pulse Rate [ Right Dorsalis Pedis] Respiratory 14 12 13 Rate Blood Pressure 116/76 116/75 116/75 O2 Sat by Pulse 89 96 94 Oximetry 05/16/18 05/16/18 05/16/18 01:30 01:40 01:50 Temperature Pulse Rate 106 H 106 H 104 H Pulse Rate [ Right Dorsalis Pedis] Respiratory 12 13 12 Rate Blood Pressure 121/79 116/75 117/75 O2 Sat by Pulse 98 90 95 Oximetry 05/16/18 05/16/18 05/16/18 02:00 02:10 02:20 Temperature Pulse Rate 106 H 105 H 104 H Pulse Rate [ Right Dorsalis Pedis] Respiratory 12 12 12 Rate Blood Pressure 117/75 124/80 125/74 O2 Sat by Pulse 98 95 92 Oximetry 05/16/18 05/16/18 05/16/18 02:30 02:40 02:50 Temperature Pulse Rate 105 H 106 H 105 H Pulse Rate [ Right Dorsalis Pedis] Respiratory 13 12 12 Rate Blood Pressure 115/76 115/76 116/77 O2 Sat by Pulse 99 99 Oximetry 05/16/18 05/16/18 05/16/18 03:00 03:10 03:20 Temperature Pulse Rate 104 H 106 H 103 H Pulse Rate [ Right Dorsalis Pedis] Respiratory 11 L 12 12 Rate Blood Pressure 112/71 112/71 107/70 O2 Sat by Pulse 99 100 100 Oximetry 05/16/18 05/16/18 05/16/18 03:30 03:38 03:40 Temperature 99.1 F Pulse Rate 105 H 104 H Pulse Rate [ Right Dorsalis Pedis] Respiratory 12 12 Rate Blood Pressure 114/74 114/74 O2 Sat by Pulse 100 100 Oximetry 05/16/18 05/16/18 05/16/18 03:50 04:00 04:10 Temperature Pulse Rate 104 H 105 H 95 H Pulse Rate [ 102 H Right Dorsalis Pedis] Respiratory 13 12 11 L Rate Blood Pressure 110/69 120/77 120/77 O2 Sat by Pulse 100 100 100 Oximetry 05/16/18 05/16/18 05/16/18 04:20 04:30 04:40 Temperature Pulse Rate 95 H 104 H 103 H Pulse Rate [ Right Dorsalis Pedis] Respiratory 13 12 12 Rate Blood Pressure 120/70 119/70 119/70 O2 Sat by Pulse 100 100 100 Oximetry 05/16/18 05/16/18 05/16/18 04:50 05:00 05:10 Temperature Pulse Rate 103 H 103 H 104 H Pulse Rate [ Right Dorsalis Pedis] Respiratory 12 12 12 Rate Blood Pressure 119/74 124/77 124/77 O2 Sat by Pulse 100 100 100 Oximetry 05/16/18 05/16/18 05/16/18 05:20 05:30 05:40 Temperature Pulse Rate 104 H 95 H 95 H Pulse Rate [ Right Dorsalis Pedis] Respiratory 15 9 L 14 Rate Blood Pressure 107/63 115/72 115/72 O2 Sat by Pulse 99 94 95 Oximetry 05/16/18 05/16/18 05/16/18 05:50 06:00 06:10 Temperature Pulse Rate 95 H 102 H 102 H Pulse Rate [ Right Dorsalis Pedis] Respiratory 12 14 14 Rate Blood Pressure 117/75 118/73 118/73 O2 Sat by Pulse 97 97 100 Oximetry 05/16/18 05/16/18 05/16/18 06:20 06:30 06:40 Temperature Pulse Rate 101 H 102 H 100 H Pulse Rate [ Right Dorsalis Pedis] Respiratory 13 12 12 Rate Blood Pressure 119/75 110/74 110/74 O2 Sat by Pulse 100 100 99 Oximetry 05/16/18 05/16/18 05/16/18 06:50 07:00 07:10 Temperature Pulse Rate 102 H 102 H 102 H Pulse Rate [ Right Dorsalis Pedis] Respiratory 10 L 9 L 8 L Rate Blood Pressure 119/74 119/74 83/51 O2 Sat by Pulse 100 100 99 Oximetry 05/16/18 05/16/18 05/16/18 07:20 07:30 07:40 Temperature Pulse Rate 102 H 101 H 102 H Pulse Rate [ Right Dorsalis Pedis] Respiratory 13 12 12 Rate Blood Pressure 79/47 85/46 92/54 O2 Sat by Pulse 100 100 100 Oximetry 05/16/18 05/16/18 07:50 08:00 Temperature Pulse Rate 102 H 102 H Pulse Rate [ Right Dorsalis Pedis] Respiratory 14 14 Rate Blood Pressure 74/44 86/53 O2 Sat by Pulse 100 100 Oximetry Constitutional: appears uncomfortable, other (Elderly chronically ill looking AAF with mildly increased respiratory effort at rest) Eyes: non-icteric ENT: oropharynx moist Neck: supple, no lymphadenopathy, no JVD Effort: mildly labored Ascultation: Bilateral: diminished breath sounds, rhonchi Percussion: Bilateral: not dull Cardiovascular: regular rate and rhythm, murmur noted Gastrointestinal: normoactive bowel sounds, non-tender, non-distended, other (no palpable HSM) Integumentary: rash Extremities: no cyanosis, no ischemia or petechiae, edema Neurologic: non-focal exam (grossly), pupils equal and round Psychiatric: other (unable to assess re: AMS) CBC and BMP: 05/16/18 06:00 05/16/18 06:00 ABG, PT/INR, D-dimer: PT/INR, D-dimer PT 16.8 Sec. (12.2-14.9) H 05/11/18 10:38 INR 1.32 (0.87-1.13) H 05/11/18 10:38 Abnormal lab findings: Abnormal Labs 05/11/18 05/11/18 05/11/18 10:38 10:38 10:38 RBC 3.36 L Hgb 8.2 L Hct 26.0 L MCV 78 L MCH 24 L MCHC RDW 23.0 H Plt Count Lymph % (Auto) [place] % (Auto) Lymph # [place] # Seg Neutrophils % Seg Neuts % (Manual) 95.0 H Lymphocytes % (Manual) 3.0 L Lymphocytes # (Manual) 0.2 L PT 16.8 H INR 1.32 H Sodium 136 L Potassium 5.3 H Chloride 93.0 L BUN 41 H Creatinine 6.3 H Glucose 101 H POC Glucose Lactic Acid AST ALT 6 L Total Creatine Kinase CK-MB (CK-2) CK-MB (CK-2) Rel Index Troponin T 1.360 H* NT-Pro-B Natriuret Pep > 84360 H Total Protein Albumin 3.0 L Triglycerides 182 H LDL Cholesterol Direct 44 L HDL Cholesterol 26 L Urine WBC (Auto) 05/11/18 05/11/18 05/11/18 11:47 12:03 16:46 RBC Hgb Hct MCV MCH MCHC RDW Plt Count Lymph % (Auto) [place] % (Auto) Lymph # [place] # Seg Neutrophils % Seg Neuts % (Manual) Lymphocytes % (Manual) Lymphocytes # (Manual) PT INR Sodium Potassium Chloride BUN Creatinine Glucose POC Glucose Lactic Acid 2.30 H* 2.40 H* AST ALT Total Creatine Kinase CK-MB (CK-2) CK-MB (CK-2) Rel Index Troponin T NT-Pro-B Natriuret Pep Total Protein Albumin Triglycerides LDL Cholesterol Direct HDL Cholesterol Urine WBC (Auto) > 182.0 H 05/11/18 05/11/18 05/11/18 16:46 17:39 20:54 RBC Hgb Hct MCV MCH MCHC RDW Plt Count Lymph % (Auto) [place] % (Auto) Lymph # [place] # Seg Neutrophils % Seg Neuts % (Manual) Lymphocytes % (Manual) Lymphocytes # (Manual) PT INR Sodium Potassium Chloride BUN Creatinine Glucose POC Glucose 119 H Lactic Acid 2.40 H* AST ALT Total Creatine Kinase 269 H CK-MB (CK-2) 12.3 H CK-MB (CK-2) Rel Index 4.5 H Troponin T 1.540 H* NT-Pro-B Natriuret Pep Total Protein Albumin Triglycerides LDL Cholesterol Direct HDL Cholesterol Urine WBC (Auto) 05/12/18 05/12/18 05/13/18 05:40 22:27 04:39 RBC Hgb 9.4 L Hct 29.8 L MCV 77 L MCH 24 L MCHC RDW 23.4 H Plt Count 114 L Lymph % (Auto) [place] % (Auto) Lymph # [place] # Seg Neutrophils % Seg Neuts % (Manual) 82.0 H Lymphocytes % (Manual) 11.0 L Lymphocytes # (Manual) 1.0 L PT INR Sodium Potassium 5.4 H Chloride 95.9 L BUN 43 H Creatinine 6.3 H Glucose POC Glucose 68 L Lactic Acid AST ALT Total Creatine Kinase CK-MB (CK-2) CK-MB (CK-2) Rel Index Troponin T NT-Pro-B Natriuret Pep Total Protein Albumin Triglycerides LDL Cholesterol Direct HDL Cholesterol Urine WBC (Auto) 05/13/18 05/14/18 05/14/18 04:39 03:20 03:20 RBC Hgb 9.8 L Hct MCV MCH 24 L MCHC RDW 23.8 H Plt Count Lymph % (Auto) 11.8 L [place] % (Auto) 10.5 H Lymph # 1.1 L [place] # 0.9 H Seg Neutrophils % 75.9 H Seg Neuts % (Manual) Lymphocytes % (Manual) Lymphocytes # (Manual) PT INR Sodium Potassium 5.5 H Chloride 96.7 L 96.8 L BUN 32 H 18 H Creatinine 4.8 H 3.2 H Glucose 105 H 115 H POC Glucose Lactic Acid AST ALT Total Creatine Kinase CK-MB (CK-2) CK-MB (CK-2) Rel Index Troponin T NT-Pro-B Natriuret Pep Total Protein Albumin Triglycerides LDL Cholesterol Direct HDL Cholesterol Urine WBC (Auto) 05/14/18 05/14/18 05/15/18 21:35 23:30 04:40 RBC Hgb Hct MCV MCH 24 L MCHC RDW 23.5 H Plt Count Lymph % (Auto) [place] % (Auto) 10.0 H Lymph # [place] # 1.0 H Seg Neutrophils % 74.2 H Seg Neuts % (Manual) Lymphocytes % (Manual) Lymphocytes # (Manual) PT INR Sodium 135 L Potassium 5.4 H D Chloride 97.9 L BUN 20 H Creatinine 3.6 H Glucose POC Glucose 106 H Lactic Acid AST 46 H ALT Total Creatine Kinase CK-MB (CK-2) CK-MB (CK-2) Rel Index Troponin T NT-Pro-B Natriuret Pep Total Protein 6.2 L Albumin 2.6 L Triglycerides LDL Cholesterol Direct HDL Cholesterol Urine WBC (Auto) 05/15/18 05/16/18 05/16/18 04:40 06:00 06:00 RBC Hgb 9.8 L Hct MCV MCH 24 L MCHC 29 L RDW 24.9 H Plt Count Lymph % (Auto) [place] % (Auto) 10.7 H Lymph # [place] # Seg Neutrophils % 70.3 H Seg Neuts % (Manual) Lymphocytes % (Manual) Lymphocytes # (Manual) PT INR Sodium Potassium Chloride BUN 21 H 24 H Creatinine 3.8 H 4.2 H Glucose 102 H POC Glucose Lactic Acid AST ALT Total Creatine Kinase CK-MB (CK-2) CK-MB (CK-2) Rel Index Troponin T NT-Pro-B Natriuret Pep Total Protein Albumin Triglycerides LDL Cholesterol Direct HDL Cholesterol Urine WBC (Auto) Chest x-ray: image reviewed (RLL infiltrate and gross cardiomegaly) Allied health notes reviewed: nursing
--- NOTE | 2018-05-16 12:30 | Consultation ---
History of Present Illness Consult date: 05/16/18 Requesting physician: KENNETH HICKS Reason for Consult: Cardioembolic stroke History of present illness: 62 YO Female [facility] Facility Resident with HTN, CHF, Right Calf DVT, GERD, ESRD on HD (T,R,Sa), COPD, Asthma, Chronic RLE DVT not on anticoagulation, OA, Seizure disorder, DM presents to ED on 05/11/18 with altered mental status. Pt was encephalopathic and not able to give history. and ED staff provided history. As per staff, the patient was found to be confused by her . CT brain in ED revealed CVA. She was also found to have NSTEMI, Encephalopathy, UTI, ESRD, as well as hypotension with systolic BP in the 80's secondary to SIRS . Nephrology consulted in ED for dialysis. The pt. had apparently refused her dialysis prior to this spell of unresponsiveness. The pt. 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 She was completing 6 weekss of vancomycin when this recent event happened. Currently the pt. remains on pressor agents and Bi-Pap for oxygenation. She is responding verbally. Renal function has improved with dialysis. Past History Past Medical History: arthritis, ESRD, GERD, heart failure, hypertension Past Surgical History: cholecystectomy, hysterectomy, Other (AV fistula) Social history: Family history: CAD, hypertension Medications and Allergies Allergies Allergy/AdvReac Type Severity Reaction Status Date / Time codeine Allergy Rash Verified 03/04/16 15:27 Sulfa (Sulfonamide Allergy Rash Verified 03/04/16 15:27 Antibiotics) Home Medications Medication Instructions Recorded Confirmed Last Taken Type Gabapentin [Neurontin] 100 mg PO Q12HR capsule 05/01/18 05/11/18 Unknown Rx Sevelamer Carbonate [Renvela] 2,400 mg PO AC tablet 05/01/18 05/11/18 Unknown Rx levETIRAcetam [Keppra TAB] 500 mg PO BID tablet 05/01/18 05/11/18 Unknown Rx oxyCODONE /ACETAMINOPHEN [Percocet 1 tab PO Q6H PRN #30 tablet 05/01/18 05/11/18 Unknown Rx 5/325 mg] FLUoxetine [PROzac] 20 mg PO QDAY 05/11/18 05/11/18 Unknown History Ferrous Sulfate [Iron] 325 mg PO BID 05/11/18 05/11/18 Unknown History ALBUTEROL NEB's [Proventil 0.083% 2.5 mg IH Q3HRT PRN nebu 05/16/18 Unknown Rx NEBS] Acetaminophen [Acetaminophen TAB] 650 mg PO Q4H PRN tablet 05/16/18 Unknown Rx Aspirin [Aspirin TAB] 325 mg PO QDAY tablet 05/16/18 Unknown Rx AtorvaSTATin [Lipitor] 40 mg PO QHS tablet 05/16/18 Unknown Rx Bisacodyl [Dulcolax suppos] 10 mg MT QDAY PRN supp.rect 05/16/18 Unknown Rx Lansoprazole Solutab [Prevacid 30 mg FEEDTUBE QDAY tab.rapdis 05/16/18 Unknown Rx Solutab] Metoclopramide [Reglan TAB] 10 mg PO Q6H PRN tablet 05/16/18 Unknown Rx Ondansetron [Zofran INJ] 4 mg IV Q8H PRN vial 05/16/18 Unknown Rx QUEtiapine [SEROquel] 50 mg PO Q12H tablet 05/16/18 Unknown Rx hydrOXYzine HCL [Atarax] 50 mg PO Q12H PRN tablet 05/16/18 Unknown Rx Active Meds: Active Medications Acetaminophen (Tylenol) 650 mg PO Q4H PRN PRN Reason: Fever >101 Albuterol (Proventil) 2.5 mg IH Q3HRT PRN PRN Reason: Shortness Of Breath Lipase/Protease/Amylase (Pancreaze Dr 10,500 Unit) 1 each FEEDTUBE PRN PRN PRN Reason: For Clogged Feeding Tube Aspirin (Aspirin) 325 mg PO QDAY [facility] Last Admin: 05/16/18 10:17 Dose: 325 mg Documented by: Atorvastatin Calcium (Lipitor) 40 mg PO QHS [facility] Last Admin: 05/15/18 21:50 Dose: 40 mg Documented by: Bisacodyl (Dulcolax) 10 mg MT QDAY PRN PRN Reason: Constipation Epoetin Jt (Procrit) 20,000 unit SUB-Q MYAH PRN PRN Reason: hemodialysis Last Admin: 05/13/18 14:56 Dose: 20,000 unit Documented by: Ferrous Sulfate (Feosol) 325 mg PO BID [facility] Last Admin: 05/16/18 10:17 Dose: 325 mg Documented by: Fluoxetine HCl (Prozac) 20 mg PO QDAY [facility] Last Admin: 05/16/18 10:20 Dose: 20 mg Documented by: Gabapentin (Neurontin) 100 mg PO Q12HR [facility] Last Admin: 05/16/18 10:17 Dose: 100 mg Documented by: Hydroxyzine HCl (Atarax) 50 mg PO Q12H PRN PRN Reason: Itching Norepinephrine (Levophed Drip 4 Mg/Ns 250 Ml) 4 mg in 250 mls @ 7.5 mls/hr IV TITR [facility]; Protocol Stop: 05/16/18 12:59 Last Admin: 05/16/18 07:00 Dose: 16 mcg/min, 60 mls/hr Documented by: Sodium Chloride (Nacl 0.9%) 100 mls @ 999 mls/hr IV MYAH PRN PRN Reason: Hypotension Norepinephrine 8 mg/ Sodium (Chloride) 250 mls @ 3.75 mls/hr IV TITR [facility]; Protocol Last Admin: 05/16/18 10:26 Dose: 16 mcg/min, 30 mls/hr Documented by: Lansoprazole (Prevacid Solutab) 30 mg FEEDTUBE QDAY [facility] Last Admin: 05/16/18 10:32 Dose: 30 mg Documented by: Levetiracetam (Keppra) 500 mg PO BID [facility] Last Admin: 05/16/18 10:17 Dose: 500 mg Documented by: Magnesium Hydroxide (Milk Of Magnesia) 30 ml PO Q4H PRN PRN Reason: Constipation Metoclopramide HCl (Reglan) 10 mg PO Q6H PRN PRN Reason: Nausea And Vomiting Ondansetron HCl (Zofran) 4 mg IV Q8H PRN PRN Reason: Nausea And Vomiting Oxycodone/Acetaminophen (Percocet 5/325) 1 tab PO Q6H PRN PRN Reason: Pain, Moderate (4-6) Last Admin: 05/14/18 09:01 Dose: 1 tab Documented by: Promethazine HCl (Phenergan) 25 mg MT Q6H PRN PRN Reason: Nausea And Vomiting Quetiapine Fumarate (Seroquel) 50 mg PO Q12H [facility] Last Admin: 05/16/18 06:14 Dose: 50 mg Documented by: Sevelamer Carbonate (Renvela) 2,400 mg PO AC [facility] Last Admin: 05/16/18 08:07 Dose: Not Given Documented by: Simple Syrup (Simple Syrup) 15 ml FEEDTUBE PRN PRN PRN Reason: Hypoglycemia Simple Syrup (Simple Syrup) 30 ml FEEDTUBE PRN PRN PRN Reason: Hypoglycemia Sodium Bicarbonate (Sodium Bicarbonate) 325 mg FEEDTUBE PRN PRN PRN Reason: For Clogged Feeding Tube Sodium Chloride (Sodium Chloride Flush Syringe 10 Ml) 10 ml IV PRN PRN PRN Reason: LINE FLUSH Last Admin: 05/14/18 21:01 Dose: 10 ml Documented by: Review of Systems ROS unobtainable: due to mental status Physical Examination - Vital Signs Vital Signs: Vital Signs Temp Pulse Resp BP Pulse Ox 98.0 F 86 19 81/54 100 05/11/18 09:34 05/11/18 09:34 05/11/18 09:34 05/11/18 09:34 05/11/18 09:34 - Physical Exam Narrative exam: Neurological Exam - Awakens to loud vocal stimulus. Responds with a few words. Does not follow commands. 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 Face symmetric. Motor - cannot do formal testing. Not moving spontaneously. Reflexes - trace throughout. Sensory - withdraws to pain - Assessment Assessment Interval: Baseline - Level of Consciousness 1a. Level of Consciousness: arousable/minor stimuli - LOC Questions 1b. LOC Questions: answers 1 question correctly Results - Laboratory Findings CBC and BMP: 05/16/18 06:00 05/16/18 06:00 Abnormal Lab Findings: Abnormal Labs 05/11/18 05/11/18 05/11/18 10:38 10:38 10:38 RBC 3.36 L Hgb 8.2 L Hct 26.0 L MCV 78 L MCH 24 L MCHC RDW 23.0 H Plt Count Lymph % (Auto) [place] % (Auto) Lymph # [place] # Seg Neutrophils % Seg Neuts % (Manual) 95.0 H Lymphocytes % (Manual) 3.0 L Lymphocytes # (Manual) 0.2 L PT 16.8 H INR 1.32 H Sodium 136 L Potassium 5.3 H Chloride 93.0 L BUN 41 H Creatinine 6.3 H Glucose 101 H POC Glucose Lactic Acid AST ALT 6 L Total Creatine Kinase CK-MB (CK-2) CK-MB (CK-2) Rel Index Troponin T 1.360 H* NT-Pro-B Natriuret Pep > 34857 H Total Protein Albumin 3.0 L Triglycerides 182 H LDL Cholesterol Direct 44 L HDL Cholesterol 26 L Urine WBC (Auto) 05/11/18 05/11/18 05/11/18 11:47 12:03 16:46 RBC Hgb Hct MCV MCH MCHC RDW Plt Count Lymph % (Auto) [place] % (Auto) Lymph # [place] # Seg Neutrophils % Seg Neuts % (Manual) Lymphocytes % (Manual) Lymphocytes # (Manual) PT INR Sodium Potassium Chloride BUN Creatinine Glucose POC Glucose Lactic Acid 2.30 H* 2.40 H* AST ALT Total Creatine Kinase CK-MB (CK-2) CK-MB (CK-2) Rel Index Troponin T NT-Pro-B Natriuret Pep Total Protein Albumin Triglycerides LDL Cholesterol Direct HDL Cholesterol Urine WBC (Auto) > 182.0 H 05/11/18 05/11/18 05/11/18 16:46 17:39 20:54 RBC Hgb Hct MCV MCH MCHC RDW Plt Count Lymph % (Auto) [place] % (Auto) Lymph # [place] # Seg Neutrophils % Seg Neuts % (Manual) Lymphocytes % (Manual) Lymphocytes # (Manual) PT INR Sodium Potassium Chloride BUN Creatinine Glucose POC Glucose 119 H Lactic Acid 2.40 H* AST ALT Total Creatine Kinase 269 H CK-MB (CK-2) 12.3 H CK-MB (CK-2) Rel Index 4.5 H Troponin T 1.540 H* NT-Pro-B Natriuret Pep Total Protein Albumin Triglycerides LDL Cholesterol Direct HDL Cholesterol Urine WBC (Auto) 05/12/18 05/12/18 05/13/18 05:40 22:27 04:39 RBC Hgb 9.4 L Hct 29.8 L MCV 77 L MCH 24 L MCHC RDW 23.4 H Plt Count 114 L Lymph % (Auto) [place] % (Auto) Lymph # [place] # Seg Neutrophils % Seg Neuts % (Manual) 82.0 H Lymphocytes % (Manual) 11.0 L Lymphocytes # (Manual) 1.0 L PT INR Sodium Potassium 5.4 H Chloride 95.9 L BUN 43 H Creatinine 6.3 H Glucose POC Glucose 68 L Lactic Acid AST ALT Total Creatine Kinase CK-MB (CK-2) CK-MB (CK-2) Rel Index Troponin T NT-Pro-B Natriuret Pep Total Protein Albumin Triglycerides LDL Cholesterol Direct HDL Cholesterol Urine WBC (Auto) 05/13/18 05/14/18 05/14/18 04:39 03:20 03:20 RBC Hgb 9.8 L Hct MCV MCH 24 L MCHC RDW 23.8 H Plt Count Lymph % (Auto) 11.8 L [place] % (Auto) 10.5 H Lymph # 1.1 L [place] # 0.9 H Seg Neutrophils % 75.9 H Seg Neuts % (Manual) Lymphocytes % (Manual) Lymphocytes # (Manual) PT INR Sodium Potassium 5.5 H Chloride 96.7 L 96.8 L BUN 32 H 18 H Creatinine 4.8 H 3.2 H Glucose 105 H 115 H POC Glucose Lactic Acid AST ALT Total Creatine Kinase CK-MB (CK-2) CK-MB (CK-2) Rel Index Troponin T NT-Pro-B Natriuret Pep Total Protein Albumin Triglycerides LDL Cholesterol Direct HDL Cholesterol Urine WBC (Auto) 05/14/18 05/14/18 05/15/18 21:35 23:30 04:40 RBC Hgb Hct MCV MCH 24 L MCHC RDW 23.5 H Plt Count Lymph % (Auto) [place] % (Auto) 10.0 H Lymph # [place] # 1.0 H Seg Neutrophils % 74.2 H Seg Neuts % (Manual) Lymphocytes % (Manual) Lymphocytes # (Manual) PT INR Sodium 135 L Potassium 5.4 H D Chloride 97.9 L BUN 20 H Creatinine 3.6 H Glucose POC Glucose 106 H Lactic Acid AST 46 H ALT Total Creatine Kinase CK-MB (CK-2) CK-MB (CK-2) Rel Index Troponin T NT-Pro-B Natriuret Pep Total Protein 6.2 L Albumin 2.6 L Triglycerides LDL Cholesterol Direct HDL Cholesterol Urine WBC (Auto) 05/15/18 05/16/18 05/16/18 04:40 06:00 06:00 RBC Hgb 9.8 L Hct MCV MCH 24 L MCHC 29 L RDW 24.9 H Plt Count Lymph % (Auto) [place] % (Auto) 10.7 H Lymph # [place] # Seg Neutrophils % 70.3 H Seg Neuts % (Manual) Lymphocytes % (Manual) Lymphocytes # (Manual) PT INR Sodium Potassium Chloride BUN 21 H 24 H Creatinine 3.8 H 4.2 H Glucose 102 H POC Glucose Lactic Acid AST ALT Total Creatine Kinase CK-MB (CK-2) CK-MB (CK-2) Rel Index Troponin T NT-Pro-B Natriuret Pep Total Protein Albumin Triglycerides LDL Cholesterol Direct HDL Cholesterol Urine WBC (Auto) Assessment and Plan 62 yr old female with multiple medical problem, 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 On admission she was found to have new areas of ischemia bilaterally on CT brain, particularly rt. parietal. She has not been on anticoagulation, other than aspirin. The pt. will be seen in consultation at [facility] for cardiothoracic surgery to address the mitral valve. Plan - Will delay anticoagulation at this time in view of thoracic surgery consult.
--- NOTE | 2018-05-16 12:32 | Discharge Summary ---
Providers - Providers Date of Admission: 05/11/18 14:34 Date of discharge: 05/16/18 Attending physician: KENNETH HICKS 05/11/18 14:34 Occupational Therapy Evaluate and Treat [CONS] Routine Comment: Reason For Exam: Neuro deficits Physical Therapy Evaluation and Treat [CONS] Routine Comment: Reason For Exam: Neuro deficits 05/11/18 14:35 Speech Therapy Evaluation and Treat [CONS] Routine Reason For Exam: swallow eval 05/11/18 14:37 Consult to Cardiology [CONS] Routine Consulting Provider: BRITTANY NUGENT Reason For Exam: chf 05/11/18 14:38 Consult to Physician [CONS] Routine Comment: Consulting Provider: HARI RODRIGUEZ Physician Instructions: Reason For Exam: esrd 05/11/18 14:57 Consult to Physician [CONS] Stat Comment: Consulting Provider: LOUISA PETER Physician Instructions: Reason For Exam: elevated trop 05/12/18 13:44 Consult to Mental Health [CONS] Routine Reason For Exam: SI Place consult to:: pls 05/13/18 12:41 Consult to Physician [CONS] Routine Comment: Consulting Provider: ANGEL STERN Physician Instructions: Reason For Exam: sepsis 05/15/18 11:39 Consult to Dietitian/Nutrition [CONS] Routine Physician Instructions: Reason For Exam: Reason for Consult: Write/Manage Tube Feeding 05/16/18 04:59 Consult to Physician [CONS] Routine Comment: Consulting Provider: WINSTON MUNSON Physician Instructions: Reason For Exam: encephalopathy, CVA in setting of endocarditis Primary care physician: CARDIOGRAPHER Hospitalization Condition: Fair Hospital course: Patient is 62 yo from [facility] with hypertension, CHF, GERD, ESRD on hemodialysis, COPD, Asthma, Chronic RLE DVT not on anticoagulation, seizure disorder, diabetes. She presented to ED for evaluation on 05/11/18. Pt confused and unable to provide history. History taken from ED staff, and EMS. As per staff, the patient was found to be confused by her . EMS notified, and patient transported here to [facility] for further care and evaluation. She was seen and evaluated in ED. In ED, a CT Head revealed acute to subacute ischemic stroke right parietal region. She was also found to have NSTEMI Type 2, Encephalopathy, UTI, ESRD, as well as hypotensive with systolic BP in the 80's. . She was started on Levophed, admitted to ICU, evaluated by specialties. Dialysis managed by Nephrology. She was evaluated by [facility]. Cardiology also consulted for elevated Troponin. patient evaluated by ID Physician for endocarditis. MRI revealed bilateral ischemic strokes. Neurology evaluation also done for acute stroke in setting of mitral stenosis. Of note , the patient was an inpatient here from 04/15/18 thru 05/02/18 for mitral valve bacterial endocarditis, and was completing 6 weeks of Vancomycin when this recent event happened. She was continued on Vancomycin. Cardiology was following. After several discussions, cardiology recommended transfer to [place] for cardiothoracic evaluation. Arrangements were made and patient is being transferred to [place]. Patient is still critically ill, on BIPAP, still on Levophed. Benefits of transfer outweigh risks. Total time spent on discharge, 34 mins [facility] - Discharge Diagnoses (1) CVA (cerebral vascular accident) Status: Acute Qualifiers: Precerebral and cerebral artery: posterior cerebral artery (2) Hypotension Status: Acute (3) NSTEMI (non-ST elevated myocardial infarction) Status: Acute (4) Sepsis Status: Acute (5) UTI (urinary tract infection) Status: Acute Qualifiers: (6) End stage renal disease on dialysis Status: Chronic (7) Endocarditis of mitral valve Status: Chronic (8) History of DVT (deep vein thrombosis) Status: Chronic (9) Acute hypoxemic respiratory failure Status: Acute (10) Endocarditis Status: Acute (11) Full code status Status: Acute (12) Bipolar disorder Status: Acute (13) Seizure disorder Status: Acute (14) MRSA bacteremia Status: Acute (15) Toxic metabolic encephalopathy Status: Acute (16) UTI (urinary tract infection) Status: Acute (17) Acute ischemic stroke Status: Acute (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 Status: Acute (19) Septic shock Status: Acute (20) Mitral valve vegetation Status: Acute (21) Acute embolic stroke Status: Acute (22) Pulmonary hypertension Status: Acute (23) Chronic diastolic (congestive) heart failure Status: Acute Core Measure Documentation - Palliative Care Palliative Care/ Comfort Measures: Not Applicable - Core Measures Any of the following diagnoses?: heart failure, stroke - Heart Failure Discharge Requirements TARA/ARB for LVSD if EF <40%: Not Applicable Beta lawanda at discharge: No Reason for no beta lawanda on DC: Hypotension - Stroke Discharge Requirements Statin for LDL = or >70 mg/dl on DC: Yes Anticoag for atrial fib/atrial flutter: Not Applicable Antithrombotic for ischemic stroke: Yes Exam - Constitutional Vitals: Temp Pulse Resp BP Pulse Ox 99.1 F 103 H 12 90/61 100 05/16/18 11:00 05/16/18 12:00 05/16/18 11:00 05/16/18 12:00 05/16/18 08:00 General appearance: Present: no acute distress - Neck Neck: Present: supple - Respiratory Respiratory effort: normal Respiratory: bilateral: CTA - Cardiovascular Rhythm: regular Heart Sounds: Present: S1 & S2 (S1 and S2 reg, tachy) - Abdominal General gastrointestinal: Present: soft, non-tender, non-distended, normal bowel sounds - Neurologic Neurologic: other (Arouseable, does not follow commands) Plan Activity: advance as tolerated Diet: other (Tube feeding) Additional Instructions: 1.Continue to titrate Levophed drip to maintain MAP > 65mmHg. 2.Continue Vancomycin iv Follow up with: PRIMARY CARE, [Primary Care Provider] - 3-5 Days
--- NOTE | 2018-05-16 13:55 | Progress Note ---
Assessment and Plan 1. ESRD: Continue hemodialysis three times a week, TTS schedule. 2. Hyperkalemia: Improved after HD. 3. Hypotension: On Levophed. 4. NSTEMI: Followed by Cards. 5. H/o MRSA bacteremia: On Vancomycin. 6. B/l ischemic CVA: Transfer to [place]. Subjective Date of service: 05/16/18 Principal diagnosis: CVA Interval history: Patient was seen and examined at the bedside. Objective - Vital Signs Vital signs: Vital Signs - 12hr 05/16/18 05/16/18 05/16/18 02:00 02:10 02:20 Temperature Pulse Rate 106 H 105 H 104 H Pulse Rate [ Right Dorsalis Pedis] Respiratory 12 12 12 Rate Blood Pressure 117/75 124/80 125/74 O2 Sat by Pulse 98 95 92 Oximetry 05/16/18 05/16/18 05/16/18 02:30 02:40 02:50 Temperature Pulse Rate 105 H 106 H 105 H Pulse Rate [ Right Dorsalis Pedis] Respiratory 13 12 12 Rate Blood Pressure 115/76 115/76 116/77 O2 Sat by Pulse 99 99 Oximetry 05/16/18 05/16/18 05/16/18 03:00 03:10 03:20 Temperature Pulse Rate 104 H 106 H 103 H Pulse Rate [ Right Dorsalis Pedis] Respiratory 11 L 12 12 Rate Blood Pressure 112/71 112/71 107/70 O2 Sat by Pulse 99 100 100 Oximetry 05/16/18 05/16/18 05/16/18 03:30 03:38 03:40 Temperature 99.1 F Pulse Rate 105 H 104 H Pulse Rate [ Right Dorsalis Pedis] Respiratory 12 12 Rate Blood Pressure 114/74 114/74 O2 Sat by Pulse 100 100 Oximetry 05/16/18 05/16/18 05/16/18 03:50 04:00 04:10 Temperature Pulse Rate 104 H 105 H 95 H Pulse Rate [ 102 H Right Dorsalis Pedis] Respiratory 13 12 11 L Rate Blood Pressure 110/69 120/77 120/77 O2 Sat by Pulse 100 100 100 Oximetry 05/16/18 05/16/18 05/16/18 04:20 04:30 04:40 Temperature Pulse Rate 95 H 104 H 103 H Pulse Rate [ Right Dorsalis Pedis] Respiratory 13 12 12 Rate Blood Pressure 120/70 119/70 119/70 O2 Sat by Pulse 100 100 100 Oximetry 05/16/18 05/16/18 05/16/18 04:50 05:00 05:10 Temperature Pulse Rate 103 H 103 H 104 H Pulse Rate [ Right Dorsalis Pedis] Respiratory 12 12 12 Rate Blood Pressure 119/74 124/77 124/77 O2 Sat by Pulse 100 100 100 Oximetry 05/16/18 05/16/18 05/16/18 05:20 05:30 05:40 Temperature Pulse Rate 104 H 95 H 95 H Pulse Rate [ Right Dorsalis Pedis] Respiratory 15 9 L 14 Rate Blood Pressure 107/63 115/72 115/72 O2 Sat by Pulse 99 94 95 Oximetry 05/16/18 05/16/18 05/16/18 05:50 06:00 06:10 Temperature Pulse Rate 95 H 102 H 102 H Pulse Rate [ Right Dorsalis Pedis] Respiratory 12 14 14 Rate Blood Pressure 117/75 118/73 118/73 O2 Sat by Pulse 97 97 100 Oximetry 05/16/18 05/16/18 05/16/18 06:20 06:30 06:40 Temperature Pulse Rate 101 H 102 H 100 H Pulse Rate [ Right Dorsalis Pedis] Respiratory 13 12 12 Rate Blood Pressure 119/75 110/74 110/74 O2 Sat by Pulse 100 100 99 Oximetry 05/16/18 05/16/18 05/16/18 06:50 07:00 07:10 Temperature Pulse Rate 102 H 102 H 102 H Pulse Rate [ Right Dorsalis Pedis] Respiratory 10 L 9 L 8 L Rate Blood Pressure 119/74 119/74 83/51 O2 Sat by Pulse 100 100 99 Oximetry 05/16/18 05/16/18 05/16/18 07:20 07:30 07:40 Temperature Pulse Rate 102 H 101 H 102 H Pulse Rate [ Right Dorsalis Pedis] Respiratory 13 12 12 Rate Blood Pressure 79/47 85/46 92/54 O2 Sat by Pulse 100 100 100 Oximetry 05/16/18 05/16/18 05/16/18 07:50 08:00 08:10 Temperature Pulse Rate 102 H 102 H 103 H Pulse Rate [ 102 H Right Dorsalis Pedis] Respiratory 14 13 14 Rate Blood Pressure 74/44 86/53 86/53 O2 Sat by Pulse 100 100 100 Oximetry 05/16/18 05/16/18 05/16/18 08:20 08:30 08:40 Temperature Pulse Rate 102 H 102 H 102 H Pulse Rate [ Right Dorsalis Pedis] Respiratory 13 12 13 Rate Blood Pressure 79/49 95/60 95/60 O2 Sat by Pulse 100 100 100 Oximetry 05/16/18 05/16/18 05/16/18 08:50 09:00 09:10 Temperature Pulse Rate 101 H 101 H 101 H Pulse Rate [ Right Dorsalis Pedis] Respiratory 13 12 12 Rate Blood Pressure 93/58 102/62 102/62 O2 Sat by Pulse 100 100 100 Oximetry 05/16/18 05/16/18 05/16/18 09:20 09:30 09:40 Temperature Pulse Rate 101 H 99 H 101 H Pulse Rate [ Right Dorsalis Pedis] Respiratory 12 12 12 Rate Blood Pressure 102/62 95/64 95/64 O2 Sat by Pulse 100 100 100 Oximetry 05/16/18 05/16/18 05/16/18 09:50 10:00 10:10 Temperature Pulse Rate 100 H 101 H 100 H Pulse Rate [ Right Dorsalis Pedis] Respiratory 12 13 12 Rate Blood Pressure 101/60 103/66 103/66 O2 Sat by Pulse 100 100 100 Oximetry 05/16/18 05/16/18 05/16/18 10:20 10:30 10:40 Temperature Pulse Rate 101 H 100 H 108 H Pulse Rate [ Right Dorsalis Pedis] Respiratory 13 12 12 Rate Blood Pressure 106/67 103/69 156/102 O2 Sat by Pulse 100 100 100 Oximetry 05/16/18 05/16/18 05/16/18 10:50 11:00 11:10 Temperature 99.1 F Pulse Rate 117 H 114 H 113 H Pulse Rate [ Right Dorsalis Pedis] Respiratory 12 13 15 Rate Blood Pressure 137/87 93/57 98/55 O2 Sat by Pulse 100 100 97 Oximetry 05/16/18 05/16/18 05/16/18 11:15 11:20 11:30 Temperature Pulse Rate 112 H 111 H 108 H Pulse Rate [ Right Dorsalis Pedis] Respiratory 12 13 Rate Blood Pressure 76/48 88/55 83/48 O2 Sat by Pulse 99 98 Oximetry 05/16/18 05/16/18 05/16/18 11:40 11:45 11:50 Temperature Pulse Rate 103 H 105 H 94 H Pulse Rate [ Right Dorsalis Pedis] Respiratory 12 13 Rate Blood Pressure 83/48 82/52 90/55 O2 Sat by Pulse 98 99 Oximetry 05/16/18 05/16/18 05/16/18 12:00 12:10 12:13 Temperature Pulse Rate 103 H 103 H Pulse Rate [ 102 H Right Dorsalis Pedis] Respiratory 14 12 Rate Blood Pressure 90/61 90/61 O2 Sat by Pulse 98 99 100 Oximetry 05/16/18 05/16/18 05/16/18 12:20 12:30 12:40 Temperature Pulse Rate 102 H 114 H 116 H Pulse Rate [ Right Dorsalis Pedis] Respiratory 12 12 11 L Rate Blood Pressure 106/64 105/62 105/62 O2 Sat by Pulse 96 95 94 Oximetry 05/16/18 05/16/18 05/16/18 12:45 12:50 13:00 Temperature Pulse Rate 116 H 116 H 118 H Pulse Rate [ Right Dorsalis Pedis] Respiratory 11 L 13 Rate Blood Pressure 110/68 110/68 113/71 O2 Sat by Pulse 95 94 Oximetry 05/16/18 05/16/18 05/16/18 13:10 13:15 13:30 Temperature Pulse Rate 101 H 117 H 116 H Pulse Rate [ Right Dorsalis Pedis] Respiratory 12 Rate Blood Pressure 113/71 105/66 94/63 O2 Sat by Pulse 89 Oximetry 05/16/18 13:41 Temperature Pulse Rate 98 H Pulse Rate [ Right Dorsalis Pedis] Respiratory Rate Blood Pressure 104/71 O2 Sat by Pulse Oximetry - General Appearance General appearance: well-developed, appears stated age, other (not in distress) EENT: ATNC, PERRL Neck: supple Respiratory: Present: Clear to Ascultation Cardiology: tachycardia, S1S2, no murmurs Gastrointestinal: normoactive bowel sounds, no tenderness, no distended Integumentary: no rash Neurologic: other (opens eyes) Musculoskeletal: other (bilateral UE edema noted, left arm AVG) - Lab 05/16/18 06:00 05/16/18 06:00 Most recent lab results Calcium 9.2 mg/dL (8.4-10.2) 05/16/18 06:00 Magnesium 2.00 mg/dL (1.7-2.3) 05/14/18 23:30 Medications & Allergies - Medications Allergies/Adverse Reactions: Allergies codeine Allergy (Verified 03/04/16 15:27) Rash Sulfa (Sulfonamide Antibiotics) Allergy (Verified 03/04/16 15:27) Rash Home Medications: Home Medications Medication Instructions Recorded Confirmed Last Taken Type Gabapentin [Neurontin] 100 mg PO Q12HR capsule 05/01/18 05/11/18 Unknown Rx Sevelamer Carbonate [Renvela] 2,400 mg PO AC tablet 05/01/18 05/11/18 Unknown Rx levETIRAcetam [Keppra TAB] 500 mg PO BID tablet 05/01/18 05/11/18 Unknown Rx oxyCODONE /ACETAMINOPHEN [Percocet 1 tab PO Q6H PRN #30 tablet 05/01/18 05/11/18 Unknown Rx 5/325 mg] FLUoxetine [PROzac] 20 mg PO QDAY 05/11/18 05/11/18 Unknown History Ferrous Sulfate [Iron] 325 mg PO BID 05/11/18 05/11/18 Unknown History ALBUTEROL NEB's [Proventil 0.083% 2.5 mg IH Q3HRT PRN nebu 05/16/18 Unknown Rx NEBS] Acetaminophen [Acetaminophen TAB] 650 mg PO Q4H PRN tablet 05/16/18 Unknown Rx Aspirin [Aspirin TAB] 325 mg PO QDAY tablet 05/16/18 Unknown Rx AtorvaSTATin [Lipitor] 40 mg PO QHS tablet 05/16/18 Unknown Rx Bisacodyl [Dulcolax suppos] 10 mg MN QDAY PRN supp.rect 05/16/18 Unknown Rx Lansoprazole Solutab [Prevacid 30 mg FEEDTUBE QDAY tab.rapdis 05/16/18 Unknown Rx Solutab] Metoclopramide [Reglan TAB] 10 mg PO Q6H PRN tablet 05/16/18 Unknown Rx Ondansetron [Zofran INJ] 4 mg IV Q8H PRN vial 05/16/18 Unknown Rx QUEtiapine [SEROquel] 50 mg PO Q12H tablet 05/16/18 Unknown Rx hydrOXYzine HCL [Atarax] 50 mg PO Q12H PRN tablet 05/16/18 Unknown Rx Active Medications: Generic Name Dose Route Start Last Admin Trade Name Freq PRN Reason Stop Dose Admin Acetaminophen 650 mg 05/11/18 18:28 Tylenol PO Q4H PRN Fever >101 Albuterol 2.5 mg 05/11/18 14:34 Proventil IH Q3HRT PRN Shortness Of Breath Lipase/Protease/Amylase 1 each 05/15/18 15:46 Pancregarrick Ahumada 10,500 Unit FEEDTUBE PRN PRN For Clogged Feeding Tube Aspirin 325 mg 05/12/18 10:00 05/16/18 10:17 Aspirin PO 325 mg QDAY DAVIN Administration Atorvastatin Calcium 40 mg 05/11/18 22:00 05/15/18 21:50 Lipitor PO 40 mg QHS DAVIN Administration Bisacodyl 10 mg 05/11/18 14:34 Dulcolax MN QDAY PRN Constipation Epoetin Jt 20,000 unit 05/12/18 08:46 05/13/18 14:56 Procrit SUB-Q 20,000 unit MYAH PRN Administration hemodialysis Ferrous Sulfate 325 mg 05/11/18 22:00 05/16/18 10:17 Feosol PO 325 mg BID DAVIN Administration Fluoxetine HCl 20 mg 05/12/18 10:00 05/16/18 10:20 Prozac PO 20 mg QDAY DAVIN Administration Gabapentin 100 mg 05/11/18 22:00 05/16/18 10:17 Neurontin PO 100 mg Q12HR DAVIN Administration Hydroxyzine HCl 50 mg 05/11/18 22:00 Atarax PO Q12H PRN Itching Sodium Chloride 100 mls @ 999 mls/hr 05/13/18 09:07 Nacl 0.9% IV MYAH PRN Hypotension Norepinephrine 8 mg/ Sodium 250 mls @ 3.75 mls/hr 05/16/18 10:00 05/16/18 10:26 Chloride IV 16 mcg/min TITR DAVIN 30 mls/hr Administration Protocol 2 MCG/MIN Lansoprazole 30 mg 05/16/18 10:00 05/16/18 10:32 Prevacid Solutab FEEDTUBE 30 mg QDAY DAVIN Administration Levetiracetam 500 mg 05/11/18 22:00 05/16/18 10:17 Keppra PO 500 mg BID DAVIN Administration Magnesium Hydroxide 30 ml 05/11/18 14:34 Milk Of Magnesia PO Q4H PRN Constipation Metoclopramide HCl 10 mg 05/11/18 14:34 Reglan PO Q6H PRN Nausea And Vomiting Ondansetron HCl 4 mg 05/11/18 14:34 Zofran IV Q8H PRN Nausea And Vomiting Oxycodone/Acetaminophen 1 tab 05/11/18 18:28 05/14/18 09:01 Percocet 5/325 PO 1 tab Q6H PRN Administration Pain, Moderate (4-6) Promethazine HCl 25 mg 05/11/18 14:34 Phenergan MN Q6H PRN Nausea And Vomiting Quetiapine Fumarate 50 mg 05/11/18 19:00 05/16/18 06:14 Seroquel PO 50 mg Q12H DAVIN Administration Sevelamer Carbonate 2,400 mg 05/12/18 07:30 05/16/18 12:35 Renvela PO Not Given AC DAVIN Simple Syrup 15 ml 05/15/18 15:46 Simple Syrup FEEDTUBE PRN PRN Hypoglycemia Simple Syrup 30 ml 05/15/18 15:46 Simple Syrup FEEDTUBE PRN PRN Hypoglycemia Sodium Bicarbonate 325 mg 05/15/18 15:46 Sodium Bicarbonate FEEDTUBE PRN PRN For Clogged Feeding Tube Sodium Chloride 10 ml 05/11/18 14:34 05/14/18 21:01 Sodium Chloride Flush Syringe 10 Ml IV 10 ml PRN PRN Administration LINE FLUSH
--- NOTE | 2018-05-16 14:00 | Progress Note ---
Assessment and Plan Cultures: Blood culture 04/15/2018 MRSA Blood culture 04/17/2018 negative Blood culture 05/11/2018 CoNS 1 of 4 bottles and Strep salivarius 2 of 4 (both bottles from same set) Urine culture 05/11/2018 neg Blood culture 05/15/2018: in process Assessment: 62 y/o female with hypertension, congestive heart failure, ESRD on hemodialysis via left arm AVG, asthma, chronic right lower extremity DVT, seizure disorder, diabetes mellitus type 2, admitted on 04/15/2018 found to have acute mitral valve endocarditis secondary to MRSA bacteremia, was on IV Vancomycin post HD x 6 weeks end date: 05/29/2018, re-admitted due to AMS. 1) Shock: multifactorial ?septic +/- cardiogenic; patient with acute mitral valve endocarditis secondary to MRSA bacteremia, was on IV Vancomycin on HD. Blood cultures 05/11/2018 FLIGHT PARAMEDIC 1 of 4 bottles likely a contaminant and S. salivarius ? real vs. contaminant, patient with a left AVG. CXR shows heart failure. Remains on pressors. 2) Acute multifocal CVA: likely from MV endocarditis - CT head showed acute or subacute right parietal infarct. - MRI brain showed small multifocal areas of acute or subacute infarct as described. No evidence of intracranial hemorrhage. White matter disease. Mild mastoiditis. - MRA head no significant stenosis - Neurology following. Anticoag on hold till CT surgery eval 3) Recent acute mitral valve endocarditis secondary to MRSA: patient receving IV Vancomycin on HD, no evidence of recurrent MRSA bacteremia so far, ? left AVG infection as seen on WBC tagged scan - previous admission [facility]HA 04/20/2018 positive for mitral valve vegetation, discharged on post HD Vancomycin - WBC tagged scan 04/27/2018 showed 2 subtle but suspicious areas of radiotracer accumulation are identified on the delayed images in the medial left arm and in the region of the right knee. - Plan was to continue IV Vancomycin post HD x 6 weeks, target pre-dialysis levels between 10-20 mcg/ml (end date: 05/29/2018). - Blood cx 05/11/2017 FLIGHT PARAMEDIC 1 of 4 bottles likely contaminant in Set 1, S. salivarius 2 of 2 bottles in set 2. Both likely contaminants. Regardless, she remains on IV Vancomycin 4) NSTEMI: likely type 2 per cardiology. 5) Acute encephalopathy: due to CVA. Recommendations: - CT surgery evaluation due to acute multifocal CVA in the setting of MV endocarditis due to MRSA - CoNS and Strep salivarius in blood cultures are likely contaminants, patient anyways on IV Vancomycin - ? Vascular consult to eval for AVG infection per WBC tagged scan, although this can be quite non specific - continue vancomycin IV renally adjusted - repeat TTE - pending Overall prognosis is guarded. Black Crespo MD Infectious Diseases Database Engineer [facility] ([facility]) M [phone] O [phone] Subjective Date of service: 05/16/18 Principal diagnosis: CVA Interval history: Remains on pressors. Getting dialysis. Confused, complaining of pain. No fever. Objective - Exam Narrative Exam: General: drowsy, no distress HEENT: Atraumatic, no icterus, conjunctivae and cornea clear Oral: oropharynx limited exam Neck: Trachea midline; supple, no thyromegaly or lymphadenopathy Lungs: CTA distant BS CV: tachycardic, S1 S2+ Abdomen: Soft, non-tender; no masses or hepatosplenomegaly. bowel sounds + Extremities: +shanon edema, cold peripherally Skin: cold, no rash. Psych: somnolent Neuro: drowsy, complains of pain. confused. exam limited Lines: right femoral TLC, left AVG - Constitutional Vitals: Vital Signs Temp Pulse Resp BP Pulse Ox 99.1 F 98 H 12 104/71 89 05/16/18 11:00 05/16/18 13:41 05/16/18 13:10 05/16/18 13:41 05/16/18 13:10 Temperature -Last 24 Hours Temperature 99.1 F Temperature 99.1 F Temperature 97.8 F Temperature 98.4 F - Labs CBC & Chem 7: 05/16/18 06:00 05/16/18 06:00 Labs: Abnormal lab results 05/16/18 05/16/18 Range/Units 06:00 06:00 Hgb 9.8 L (10.1-14.3) gm/dl MCH 24 L (28-32) pg MCHC 29 L (30-34) % RDW 24.9 H (13.2-15.2) % [place] % (Auto) 10.7 H (0.0-7.3) % Seg Neutrophils % 70.3 H (40.0-70.0) % BUN 24 H (7-17) mg/dL Creatinine 4.2 H (0.7-1.2) mg/dL
[2018-05-16] MEDS: PERCOCET 5/325 PO PRN (16:29)
[2018-05-16 16:36] VITALS: BP 133/86
[2018-05-16] MEDS ORDERED: NACL 0.9 (PRIMING MACHINE ONLY DIALYSIS) MC ONE (18:29)
== END 2018-05-16 17:40 | disposition short-term general hospital (02) | DRG 871 ==
LOC: ED 09:25 → 4A 14:34 → CC1 19:47 → IMCU 05-12 16:41 → CC1 05-12 18:41
PROVIDERS: ADMIT Internal Medicine; ATTEND Internal Medicine
PROC: 5A1D70Z Performance of Urinary Filtration, Intermittent, Less than 6 Hours Per Day (ICD-10-PCS; principal; 2018-05-12)
PROC: 5A1D70Z Performance of Urinary Filtration, Intermittent, Less than 6 Hours Per Day (ICD-10-PCS; 2018-05-13)
PROC: 5A1D70Z Performance of Urinary Filtration, Intermittent, Less than 6 Hours Per Day (ICD-10-PCS; 2018-05-16)
PROC: 5A09357 Assistance with Respiratory Ventilation, Less than 24 Consecutive Hours, Continuous Positive Airway Pressure (ICD-10-PCS; 2018-05-16)
DX: A41.02 Sepsis due to Methicillin resistant Staphylococcus aureus (principal); N18.6 End stage renal disease; I63.9 Cerebral infarction, unspecified; R65.21 Severe sepsis with septic shock; I21.A1 Myocardial infarction type 2; I33.0 Acute and subacute infective endocarditis; G92 Toxic encephalopathy; J96.21 Acute and chronic respiratory failure with hypoxia; N39.0 Urinary tract infection, site not specified; I13.2 Hypertensive heart and chronic kidney disease with heart failure and with stage 5 chronic kidney disease, or end stage renal disease; I82.501 Chronic embolism and thrombosis of unspecified deep veins of right lower extremity; I50.32 Chronic diastolic (congestive) heart failure; Q21.1 Atrial septal defect; Z99.2 Dependence on renal dialysis; K21.9 Gastro-esophageal reflux disease without esophagitis; J44.9 Chronic obstructive pulmonary disease, unspecified; E11.22 Type 2 diabetes mellitus with diabetic chronic kidney disease; G40.909 Epilepsy, unspecified, not intractable, without status epilepticus; I05.9 Rheumatic mitral valve disease, unspecified; F31.9 Bipolar disorder, unspecified; I27.20 Pulmonary hypertension, unspecified; M19.90 Unspecified osteoarthritis, unspecified site; Z90.49 Acquired absence of other specified parts of digestive tract; Z90.710 Acquired absence of both cervix and uterus; Z82.49 Family history of ischemic heart disease and other diseases of the circulatory system; Z88.6 Allergy status to analgesic agent; Z88.2 Allergy status to sulfonamides; D64.9 Anemia, unspecified; E87.5 Hyperkalemia; F41.9 Anxiety disorder, unspecified; F43.10 Post-traumatic stress disorder, unspecified
CPT/HCPCS: 36415; 70450; 70544; 70551; 71045; 74018; 80048; 80053; 80061; 80202; 81001; 82140; 82550; 82553; 82962; 83735; 83880; 84484; 85007; 85025; 85610; 85730; 87040; 87086; 87186; 93005; 93010; 94760; 95819; 96361; 96365; 96366; 96368; 96375; G0378; A9270-GY; C9113; J0696; J0885; J2060; J2405; J2543; J3246; J3370; J7030; J7040; J7050